=== PATIENT | female | born 1960 | race American Indian/Alaskan Native ===

== ENCOUNTER 2017-01-05 20:33 | Inpatient (IN) | payer MEDICAID ==
[2017-01-05] MEDS ORDERED: DUONEB 0.5 MG-3 MG/3 ML SOLN IH ONE ×2 (20:42→21:16)
--- NOTE | 2017-01-05 20:46 | Emergency Department Report ---
Chief Complaint: Dyspnea/Respdistress Stated Complaint: ASTHMA Time Seen by Provider: 01/05/17 20:42 - HPI History of Present Illness: PT states she is visiting from out of town. pt states she did not bring her nebulizer with her. pt states her inhalers are not working. pt wheezing and has hx of copd and asthma - ROS Review of Systems: + sob + wheezing - Exam Vital Signs: Vital Signs 01/05/17 20:39 Temperature 98.6 F Pulse Rate 120 H Respiratory 26 H Rate Blood Pressure 140/88 O2 Sat by Pulse 92 Oximetry MSE screening note: Focused history and physical exam performed. Due to findings the following was ordered: xr, labs, neb ED Disposition for MSE Condition: Stable
[2017-01-05] MEDS: DUONEB 0.5 MG-3 MG/3 ML SOLN IH ONE ×2 (20:53→21:21)
[2017-01-05 22:15] LABS: Alanine Aminotransferase 15 units/L (7-56); Albumin 3.5 g/dL (3.9-5); Albumin/Globulin Ratio 0.9 %; Alkaline Phosphatase 153 units/L (35-129); Anion Gap 18 mmol/L; BUN/Creatinine Ratio 8.57; Bilirubin,Total < 0.2 mg/dL (0.1-1.2); Blood Urea Nitrogen 6 mg/dL (7-17); Calcium 8.6 mg/dL (8.4-10.2); Carbon Dioxide 28 mmol/L (22-30); Chloride 101.6 mmol/L (98-107); Glucose 113 mg/dL (65-100); Potassium 4.1 mmol/L (3.6-5.0); Sodium 143 mmol/L (137-145); Total Protein 7.6 g/dL (6.3-8.2)
[2017-01-06] MEDS ORDERED: DUONEB 0.5 MG-3 MG/3 ML SOLN IH ONE (01:45)
[2017-01-06] MEDS ORDERED: NACL 0.9% 1000 ML 1,000 ML IV ONE (08:23)
[2017-01-06] MEDS ORDERED: DECADRON IV ONE (08:23)
--- NOTE | 2017-01-06 08:25 | Emergency Department Report ---
ED Shortness of Breath HPI - General Chief Complaint: Dyspnea/Respdistress Stated Complaint: ASTHMA Time Seen by Provider: 01/05/17 20:42 Source: patient Mode of arrival: Ambulatory Limitations: No Limitations - History of Present Illness MD Complaint: shortness of breath, cough - Related Data Home Medications Medication Instructions Recorded Confirmed Last Taken ALBUTEROL NEB's [Proventil 0.083% 90 mcg IH QID 01/06/17 01/06/17 Unknown NEBS] Fluticasone/Salmeterol [Advair 1 puff IH BID 01/06/17 01/06/17 Unknown Diskus 250-50 mcg] Gabapentin [Neurontin] 400 mg PO QID 01/06/17 01/06/17 Unknown Memantine HCl 5 mg PO DAILY 01/06/17 01/06/17 Unknown Montelukast [Singulair] 10 mg PO QHS 01/06/17 01/06/17 Unknown Olanzapine [OLANZapine] 5 mg PO QHS 01/06/17 01/06/17 Unknown Omeprazole 40 mg PO DAILY 01/06/17 01/06/17 Unknown Zolpidem [Ambien] 10 mg PO QHS 01/06/17 01/06/17 Unknown Allergies Allergy/AdvReac Type Severity Reaction Status Date / Time No Known Allergies Allergy Unverified 01/05/17 20:49 ED Review of Systems ROS: Stated complaint: ASTHMA Other details as noted in HPI ED Past Medical Hx - Past Medical History Hx Asthma: Yes Hx COPD: Yes Additional medical history: bi polar - Surgical History Past Surgical History?: No - Social History Smoking Status: Current Every Day Smoker Substance Use Type: None - Medications Home Medications: Home Medications Medication Instructions Recorded Confirmed Last Taken Type ALBUTEROL NEB's [Proventil 0.083% 90 mcg IH QID 01/06/17 01/06/17 Unknown History NEBS] Fluticasone/Salmeterol [Advair 1 puff IH BID 01/06/17 01/06/17 Unknown History Diskus 250-50 mcg] Gabapentin [Neurontin] 400 mg PO QID 01/06/17 01/06/17 Unknown History Memantine HCl 5 mg PO DAILY 01/06/17 01/06/17 Unknown History Montelukast [Singulair] 10 mg PO QHS 01/06/17 01/06/17 Unknown History Olanzapine [OLANZapine] 5 mg PO QHS 01/06/17 01/06/17 Unknown History Omeprazole 40 mg PO DAILY 01/06/17 01/06/17 Unknown History Zolpidem [Ambien] 10 mg PO QHS 01/06/17 01/06/17 Unknown History ED Physical Exam - General Limitations: No Limitations ED Course Vital Signs 01/05/17 01/05/17 01/05/17 20:39 21:20 21:30 Temperature 98.6 F Pulse Rate 120 H Pulse Rate [ 110 H 105 H Anterior Bilateral Throughout] Respiratory 26 H Rate Respiratory 24 20 Rate [Anterior Bilateral Throughout] Blood Pressure 140/88 Blood Pressure [Left] O2 Sat by Pulse 92 Oximetry 01/06/17 01/06/17 01/06/17 01:55 02:05 04:25 Temperature 98.2 F Pulse Rate 95 H Pulse Rate [ 87 91 H Anterior Bilateral Throughout] Respiratory 20 Rate Respiratory 18 20 Rate [Anterior Bilateral Throughout] Blood Pressure 148/94 Blood Pressure [Left] O2 Sat by Pulse 94 Oximetry 01/06/17 01/06/17 01/06/17 08:51 09:04 09:19 Temperature Pulse Rate 95 H Pulse Rate [ 100 H 101 H Anterior Bilateral Throughout] Respiratory 32 H Rate Respiratory 22 20 Rate [Anterior Bilateral Throughout] Blood Pressure Blood Pressure 182/111 [Left] O2 Sat by Pulse 95 Oximetry 01/06/17 10:43 Temperature 98.2 F Pulse Rate 105 H Pulse Rate [ Anterior Bilateral Throughout] Respiratory 28 H Rate Respiratory Rate [Anterior Bilateral Throughout] Blood Pressure Blood Pressure 126/68 [Left] O2 Sat by Pulse 92 Oximetry - Reevaluation(s) Reevaluation #1: 01/06/17 09:27 Patient resting comfortably receiving another breathing treatment. Patient still has diffuse bilateral wheezing and rhonchi since in no distress. Reevaluation #2: 01/06/17 09:44 Patient has now had several breathing treatments and IV steroids and states she still feels short of breath and feels she needs to be admitted to the hospital. - Consultations Consultation #1: 01/06/17 09:27 Admitted to ED Medical Decision Making - Lab Data Result diagrams: 01/06/17 08:48 01/05/17 21:37 - EKG Data Rate: tachycardia - Radiology Data Radiology results: report reviewed Chest x-ray shows no acute findings - Medical Decision Making Relates a long history of recurrent episodes of asthma exacerbation and states she has had to be admitted multiple times for respiratory distress. Critical care attestation.: If time is entered above; I have spent that time in minutes in the direct care of this critically ill patient, excluding procedure time. ED Disposition Clinical Impression: Asthma exacerbation Disposition: OP ADMITTED IP TO THIS HOSP Is pt being admited?: Yes Condition: Stable Referrals: PRIMARY CARE, [Primary Care Provider] - 3-5 Days
--- NOTE | 2017-01-06 08:33 | XRay Report ---
CHEST 2 VIEWS INDICATION: Wheezing, asthma attack. COMPARISON: None similar at this institution. FINDINGS: Frontal and lateral chest radiographs demonstrate normal cardiomediastinal silhouette. Slightly prominent lung markings centrally and peribronchial thickening may be correlated for hyperactive airway disease in an appropriate setting. No focal consolidation, pleural effusions or CHF. Mild thoracic spine degenerative spurring. Probable cholecystectomy clips. CONCLUSION: Slight peribronchial thickening without evidence of pneumonia, as described. Please correlate. Thank you for the opportunity to participate in this patient's care.
[2017-01-06] MEDS ORDERED: PROVENTIL IH ONE (08:44)
[2017-01-06 09:21] LABS: Basophils % (Auto) 1.1 % (0.0-1.8); Eosinophils % (Auto) 3.2 % (0.0-4.3); Hematocrit 42.9 % (30.3-42.9); Hemoglobin 13.6 gm/dl (10.1-14.3); Mean Corpuscular HGB Conc 32 % (30-34); Mean Corpuscular Hemoglobin 27 pg (28-32); Mean Corpuscular Volume 85 fl (79-97); Platelet Count 325 K/mm3 (140-440); Red Blood Count 5.02 M/mm3 (3.65-5.03); Red Cell Distribution Width 14.5 % (13.2-15.2); White Blood Count 7.8 K/mm3 (4.5-11.0)
[2017-01-06 09:25] LABS: Bilirubin,Urine NEG (Negative); Blood,Urine NEG (Negative); Ketones,Urine NEG (Negative); Leukocyte Esterase,Urine NEG (Negative); Mucus,Urine FEW /HPF; Nitrite,Urine NEG (Negative); Protein,Urine <15 mg/dL mg/dL (Negative); Urobilinogen,Urine < 2.0 mg/dL (<2.0)
--- NOTE | 2017-01-06 09:25 | Admit Criteria Form ---
Admission Criteria Documentation: ASTHMA Clinical Indications for Admission to Inpatient Care (Place 'X' for any and all applicable criteria): Admission is indicated for ANY ONE of the following (1)(2)(3)(4)(5): [ ]I. Absent or markedly diminished breath sounds (silent chest) [ ]II. Oxygen saturation < 92% [ ]III. PaCO2 = / > 42 mm Hg (5.6 kPa) [ ]IV. Peak expiratory flow rate < 40% of predicted or personal best after treatment. [ ]V. Peak expiratory flow rate < 33% of predicted or personal before after treatment [ ]. Change in mental status [ ]VII. Ventilatory support required [ ]VIII. PaO2 < 60 mm Hg (8.0 kPa) [ ]IX. Cyanosis [ ]X. Cardiac dysrhythmia (e.g., bradycardia) [ ]XI. Hemodynamic instability [ ]XII. Radiographic evidence of complication requiring inpatient treatment (e.g., pneumonia, pneumothorax) [X ]XIII. Inpatient admission required rather than observation care (also use Asthma: Observation Care guideline as appropriate) because of ANY ONE of the following: [X ]a) Respiratory finding that is severe or persistent (eg, dyspnea, tachypnea, accessory muscle use) [ ]b) Airflow measurements less than 60% of predicted or personal best that persist (e.g., over 24 hours) or worsen despite treatments [ ]c) Supplemental oxygen or respiratory treatments for over 24 hours that are performable only in acute inpatient setting [ ]d) Other condition, treatment or monitoring requiring inpatient admission. Extended stay beyond goal length of stay may be needed for (26)(27)(28): [ ]a) Severe respiratory failure (23) (29) (30) [ ]b) Secondary causes and complications (25) [ ]c) Status asthmaticus [ ]d) Chronic obstructive asthma [ ]e) Older patients (29) [ ]f) Slow resolution [ ]g) Clinically significant exacerbation of comorbidities (eg, [place]. heart failure, atrial fibrillation) The original [employer] content created by [employer] has been revised. The portions of the content which have been revised are identified through the use of italic text or in bold, and [employer] has neither reviewed nor approved the modified material. All other unmodified content is copyright [employer] Please see references footnoted in the original [facility] edition 2016 Admission Criteria Met: Yes
[2017-01-06] MEDS ORDERED: ZOFRAN IV PRN (10:38)
[2017-01-06] MEDS ORDERED: DULCOLAX PR PRN (10:38)
[2017-01-06] MEDS ORDERED: MILK OF MAGNESIA PO PRN (10:38)
[2017-01-06] MEDS ORDERED: TYLENOL PO PRN (10:38)
[2017-01-06 12:27] LABS: ISTAT Base Excess 5; ISTAT DEVICE 0; ISTAT HCO3 29.7; ISTAT PCO2 47.1 (35-45); ISTAT PH 7.407 (7.35-7.45); ISTAT PO2 56 (80-105); ISTAT SO2 89; ISTAT TCO2 31
--- NOTE | 2017-01-06 12:45 | History and Physical Report ---
History of Present Illness Date of examination: 01/06/17 Date of admission: 01/06/17 09:29 Chief complaint: Shortness of breath History of present illness: Patient is a pleasant 56-year-old female with history of COPD, asthma, bipolar disorder, who is visiting from [facility] reports that she unfortunately forgot her nebulizer. She's been here for about 2 days and began having increased shortness of breath or wheezing. She denies any environmental allergies. She denies a prior history of surgery. She denies any prior intubation due to pulmonary condition. She denies any fever, nausea, vomiting, diarrhea. She denies any chest pain. She does note some cough but nonproductive. ROS Constitutional: No fever, fatigue or weight loss. Skin: No rash. Eyes: No recent vision problems or eye pain. ENT: No congestion, ear pain, or sore throat. Endocrine: No thyroid problems. Cardiovascular: No chest pain. Respiratory: Reports cough, shortness of breath, wheezing but no congestion Gastrointestinal: No abdominal pain, nausea, vomiting, or diarrhea. Genitourinary: No dysuria. Musculoskeletal: No joint swelling. Neurologic: No seizures. Hematologic: No unusual bruising or bleeding. Psychiatric: No psychiatric problems, hallucinations or depression. All other systems reviewed and otherwise negative. Past History Past Medical History: other (bipolar, asthma) Past Surgical History: No surgical history Social history: no significant social history Family history: no significant family history Medications and Allergies Allergies Allergy/AdvReac Type Severity Reaction Status Date / Time No Known Allergies Allergy Unverified 01/05/17 20:49 Home Medications Medication Instructions Recorded Confirmed Last Taken Type ALBUTEROL NEB's [Proventil 0.083% 90 mcg IH QID 01/06/17 01/06/17 Unknown History NEBS] Fluticasone/Salmeterol [Advair 1 puff IH BID 01/06/17 01/06/17 Unknown History Diskus 250-50 mcg] Gabapentin [Neurontin] 400 mg PO QID 01/06/17 01/06/17 Unknown History Memantine HCl 5 mg PO DAILY 01/06/17 01/06/17 Unknown History Montelukast [Singulair] 10 mg PO QHS 01/06/17 01/06/17 Unknown History Olanzapine [OLANZapine] 5 mg PO QHS 01/06/17 01/06/17 Unknown History Omeprazole 40 mg PO DAILY 01/06/17 01/06/17 Unknown History Zolpidem [Ambien] 10 mg PO QHS 01/06/17 01/06/17 Unknown History Active Meds: Active Medications Acetaminophen (Tylenol) 650 mg PO Q4H PRN PRN Reason: Pain MILD(1-3)/Fever >100.5/HIGH Albuterol/Ipratropium (Duoneb 0.5 Mg-3 Mg/3 Ml Soln) 1 ampul IH Q6HRT [facility] Arformoterol Tartrate (Brovana Nebu) 15 mcg IH Q12HRT [facility] Bisacodyl (Dulcolax) 10 mg [place] QDAY PRN PRN Reason: Constipation unrelieved by MOM Budesonide (Pulmicort) 0.5 mg IH Q12HRT [facility] Gabapentin (Neurontin) 400 mg PO QID [facility] Sodium Chloride (Nacl 0.9% 1000 Ml) 1,000 mls @ 125 mls/hr IV ONCE ONE Stop: 01/06/17 16:22 Last Admin: 01/06/17 08:33 Dose: 125 mls/hr Magnesium Hydroxide (Milk Of Magnesia) 30 ml PO Q4H PRN PRN Reason: Constipation Memantine (Namenda Xr) 7 mg PO QDAY [facility] Methylprednisolone Sodium Succinate (Solu-Medrol) 40 mg IV Q8HR [facility] Montelukast Sodium (Singulair) 10 mg PO QHS [facility] Olanzapine (Zyprexa) 5 mg PO QHS [facility] Ondansetron HCl (Zofran) 4 mg IV Q8H PRN PRN Reason: N/V unrelieved by Reglan Zolpidem Tartrate (Ambien) 10 mg PO QHS [facility] Exam - Physical Exam Narrative exam: VITAL SIGNS: Reviewed. GENERAL: The patient appeared well nourished and normally developed, obese. Vital signs as documented. HEAD: No signs of head trauma. EYES: Pupils are equal. Extraocular motions intact. EARS: Hearing grossly intact. MOUTH: Oropharynx is normal. NECK: No adenopathy, no JVD. CHEST: Chest with bilateral expiratory wheezing. No accessory muscle use. CARDIAC: Regular rate and rhythm. S1 and S2, without murmurs, gallops, or rubs. VASCULAR: No Edema. Peripheral pulses normal and equal in all extremities. ABDOMEN: Soft, without detectable tenderness. No sign of distention. No rebound or guarding, and no masses palpated. Bowel Sounds normal. MUSCULOSKELETAL: Good range of motion of all major joints. Extremities without clubbing, cyanosis or edema. NEUROLOGIC EXAM: Alert and oriented x 3. No focal sensory or strength deficits. Speech normal. Follows commands. PSYCHIATRIC: Mood normal. SKIN: No rash or lesions. - Constitutional Vitals: Temp Pulse Resp BP Pulse Ox 98.2 F 105 H 28 H 126/68 92 01/06/17 10:43 01/06/17 10:43 01/06/17 10:43 01/06/17 10:43 01/06/17 10:43 Results - Labs CBC & Chem 7: 01/06/17 08:48 01/05/17 21:37 Labs: Laboratory Last Values WBC 7.8 K/mm3 (4.5-11.0) 01/06/17 08:48 RBC 5.02 M/mm3 (3.65-5.03) 01/06/17 08:48 Hgb 13.6 gm/dl (10.1-14.3) 01/06/17 08:48 Hct 42.9 % (30.3-42.9) 01/06/17 08:48 MCV 85 fl (79-97) 01/06/17 08:48 MCH 27 pg (28-32) L 01/06/17 08:48 MCHC 32 % (30-34) 01/06/17 08:48 RDW 14.5 % (13.2-15.2) 01/06/17 08:48 Plt Count 325 K/mm3 (140-440) 01/06/17 08:48 Lymph % (Auto) 22.2 % (13.4-35.0) 01/06/17 08:48 [place] % (Auto) 12.9 % (0.0-7.3) H 01/06/17 08:48 Eos % (Auto) 3.2 % (0.0-4.3) 01/06/17 08:48 Baso % (Auto) 1.1 % (0.0-1.8) 01/06/17 08:48 Lymph # 1.7 K/mm3 (1.2-5.4) 01/06/17 08:48 [place] # 1.0 K/mm3 (0.0-0.8) H 01/06/17 08:48 Eos # 0.3 K/mm3 (0.0-0.4) 01/06/17 08:48 Baso # 0.1 K/mm3 (0.0-0.1) 01/06/17 08:48 Seg Neutrophils % 60.6 % (40.0-70.0) 01/06/17 08:48 Seg Neutrophils # 4.7 K/mm3 (1.8-7.7) 01/06/17 08:48 POC ABG pH 7.407 (7.35-7.45) 01/06/17 12:04 POC ABG pCO2 47.1 (35-45) H 01/06/17 12:04 POC ABG pO2 56 (80-105) L 01/06/17 12:04 POC ABG HCO3 29.7 01/06/17 12:04 POC ABG Total CO2 31 01/06/17 12:04 POC ABG O2 Sat 89 01/06/17 12:04 POC ABG Base Excess 5 01/06/17 12:04 FiO2 21 % 01/06/17 12:04 Sodium 143 mmol/L (137-145) 01/05/17 21:37 Potassium 4.1 mmol/L (3.6-5.0) 01/05/17 21:37 Chloride 101.6 mmol/L (98-107) 01/05/17 21:37 Carbon Dioxide 28 mmol/L (22-30) 01/05/17 21:37 Anion Gap 18 mmol/L 01/05/17 21:37 BUN 6 mg/dL (7-17) L 01/05/17 21:37 Creatinine 0.7 mg/dL (0.7-1.2) 01/05/17 21:37 Estimated GFR > 60 ml/min 01/05/17 21:37 BUN/Creatinine Ratio 8.57 % 01/05/17 21:37 Glucose 113 mg/dL (65-100) H 01/05/17 21:37 Calcium 8.6 mg/dL (8.4-10.2) 01/05/17 21:37 Total Bilirubin < 0.2 mg/dL (0.1-1.2) 01/05/17 21:37 AST 14 units/L (5-40) 01/05/17 21:37 ALT 15 units/L (7-56) 01/05/17 21:37 Alkaline Phosphatase 153 units/L (35-129) H 01/05/17 21:37 Total Protein 7.6 g/dL (6.3-8.2) 01/05/17 21:37 Albumin 3.5 g/dL (3.9-5) L 01/05/17 21:37 Albumin/Globulin Ratio 0.9 % 01/05/17 21:37 Urine Color Yellow (Yellow) 01/06/17 08:45 Urine Turbidity Clear (Clear) 01/06/17 08:45 Urine pH 6.0 (5.0-7.0) 01/06/17 08:45 Ur Specific Rogers 1.015 (1.003-1.030) 01/06/17 08:45 Urine Protein <15 mg/dl mg/dL (Negative) 01/06/17 08:45 Urine Glucose (UA) Neg mg/dL (Negative) 01/06/17 08:45 Urine Ketones Neg mg/dL (Negative) 01/06/17 08:45 Urine Blood Neg (Negative) 01/06/17 08:45 Urine Nitrite Neg (Negative) 01/06/17 08:45 Urine Bilirubin Neg (Negative) 01/06/17 08:45 Urine Urobilinogen < 2.0 mg/dL (<2.0) 01/06/17 08:45 Ur Leukocyte Esterase Neg (Negative) 01/06/17 08:45 Urine WBC (Auto) 1.0 /HPF (0.0-6.0) 01/06/17 08:45 Urine RBC (Auto) 2.0 /HPF (0.0-6.0) 01/06/17 08:45 U Epithel Cells (Auto) 1.0 /HPF (0-13.0) 01/06/17 08:45 Urine Mucus Few /HPF 01/06/17 08:45 - Imaging and Cardiology Chest x-ray: image reviewed (unremarkable per My review) Assessment and Plan Assessment and plan: Patient is a pleasant 56-year-old female with history of COPD, asthma, bipolar disorder, who is visiting from [facility] reports that she unfortunately forgot her nebulizer. She's been here for about 2 days and began having increased shortness of breath or wheezing. She denies any environmental allergies. She denies a prior history of surgery. She denies any prior intubation due to pulmonary condition. She denies any fever, nausea, vomiting, diarrhea. She denies any chest pain. She does note some cough but nonproductive. * Asthma exacerbation * Bipolar disorder * Morbid obesity * Acute on chronic respiratory failure Plan * Start patient on IV Solu-Medrol every 8 hours * Start patient on nebulizer treatment, * Resume home medications * Peak flow meter and instructed on how to use * DVT and GI prophylaxis * Weight loss counseling provided to the patient due to patient verbalized understanding Advance Directives: Yes Plan of care discussed with patient/family: Yes
[2017-01-06] MEDS: NAMENDA XR PO SCH (13:35)
[2017-01-06] MEDS: NEURONTIN PO SCH ×3 (14:52→21:34)
[2017-01-06] MEDS: DUONEB 0.5 MG-3 MG/3 ML SOLN IH SCH ×2 (15:18→19:57)
[2017-01-06] MEDS: BROVANA NEBU IH SCH ×2 (15:22→19:57)
[2017-01-06] MEDS: PULMICORT IH SCH ×2 (15:22→19:57)
[2017-01-06] MEDS: AMBIEN PO SCH (21:33)
[2017-01-06] MEDS: SINGULAIR PO SCH (21:34)
[2017-01-07] MEDS: DUONEB 0.5 MG-3 MG/3 ML SOLN IH SCH ×4 (01:49→21:20)
[2017-01-07] MEDS: PULMICORT IH SCH ×2 (07:34→21:20)
[2017-01-07] MEDS: BROVANA NEBU IH SCH ×2 (07:34→21:20)
[2017-01-07] MEDS: NAMENDA XR PO SCH (09:38)
[2017-01-07] MEDS: NEURONTIN PO SCH ×4 (09:38→22:23)
[2017-01-07] MEDS ORDERED: MEMANTINE HCL 5 MG PO SCH (10:00)
[2017-01-07] MEDS: XANAX PO PRN ×2 (12:41→22:30)
[2017-01-07] MEDS: PERCOCET 5/325 PO PRN ×2 (12:41→22:26)
[2017-01-07] MEDS ORDERED: PNEUMOVAX 23 IM ONE (12:56)
--- NOTE | 2017-01-07 15:25 | Progress Note ---
Assessment and Plan Assessment and plan: Patient is a pleasant 56-year-old female with history of COPD, asthma, bipolar disorder, who is visiting from [facility] reports that she unfortunately forgot her nebulizer. She's been here for about 2 days and began having increased shortness of breath or wheezing. She denies any environmental allergies. She denies a prior history of surgery. She denies any prior intubation due to pulmonary condition. She denies any fever, nausea, vomiting, diarrhea. She denies any chest pain. She does note some cough but nonproductive. * Asthma exacerbation * Bipolar disorder * Morbid obesity * Chronic pain and anxiety syndrome * Tobacco abuse * Acute on chronic respiratory failure with hypoxia Plan * continue IV Solu-Medrol every 8 hours * continue on nebulizer treatment, * Resume home medications * Nicotine patch * Resume opioids and benzo as taken at home. * Extensive conversation and counseling on tobacco cessation patient verbalized understanding * Peak flow meter and instructed on how to use * DVT and GI prophylaxis * Weight loss counseling provided to the patient due to patient verbalized understanding * 1 discussed with the patient will continue inpatient care from [facility]. History Interval history: Patient seen and examined this morning in mild respiratory distress, but still with some wheezing. Still with cough. Productive. Denies any chest pain, nausea, vomiting, diarrhea No fever noted blood pressure controlled No adverse events reported to me by nursing staff Hospitalist Physical - Physical exam Narrative exam: VITAL SIGNS: Reviewed. GENERAL: The patient appeared well nourished and normally developed, obese. Vital signs as documented. HEAD: No signs of head trauma. EYES: Pupils are equal. Extraocular motions intact. EARS: Hearing grossly intact. MOUTH: Oropharynx is normal. NECK: No adenopathy, no JVD. CHEST: Chest with bilateral expiratory wheezing. No accessory muscle use. CARDIAC: Regular rate and rhythm. S1 and S2, without murmurs, gallops, or rubs. VASCULAR: No Edema. Peripheral pulses normal and equal in all extremities. ABDOMEN: Soft, without detectable tenderness. No sign of distention. No rebound or guarding, and no masses palpated. Bowel Sounds normal. MUSCULOSKELETAL: Good range of motion of all major joints. Extremities without clubbing, cyanosis or edema. NEUROLOGIC EXAM: Alert and oriented x 3. No focal sensory or strength deficits. Speech normal. Follows commands. PSYCHIATRIC: Mood normal. SKIN: No rash or lesions. - Constitutional Vitals: Temp Pulse Resp BP Pulse Ox 97.5 F L 115 H 18 92/68 96 01/07/17 15:03 01/07/17 15:03 01/07/17 15:03 01/07/17 15:03 01/07/17 15:03 Results - Labs CBC & Chem 7: 01/06/17 08:48 01/05/17 21:37 Labs: Laboratory Last Values WBC 7.8 K/mm3 (4.5-11.0) 01/06/17 08:48 RBC 5.02 M/mm3 (3.65-5.03) 01/06/17 08:48 Hgb 13.6 gm/dl (10.1-14.3) 01/06/17 08:48 Hct 42.9 % (30.3-42.9) 01/06/17 08:48 MCV 85 fl (79-97) 01/06/17 08:48 MCH 27 pg (28-32) L 01/06/17 08:48 MCHC 32 % (30-34) 01/06/17 08:48 RDW 14.5 % (13.2-15.2) 01/06/17 08:48 Plt Count 325 K/mm3 (140-440) 01/06/17 08:48 Lymph % (Auto) 22.2 % (13.4-35.0) 01/06/17 08:48 Terry % (Auto) 12.9 % (0.0-7.3) H 01/06/17 08:48 Eos % (Auto) 3.2 % (0.0-4.3) 01/06/17 08:48 Baso % (Auto) 1.1 % (0.0-1.8) 01/06/17 08:48 Lymph # 1.7 K/mm3 (1.2-5.4) 01/06/17 08:48 Terry # 1.0 K/mm3 (0.0-0.8) H 01/06/17 08:48 Eos # 0.3 K/mm3 (0.0-0.4) 01/06/17 08:48 Baso # 0.1 K/mm3 (0.0-0.1) 01/06/17 08:48 Seg Neutrophils % 60.6 % (40.0-70.0) 01/06/17 08:48 Seg Neutrophils # 4.7 K/mm3 (1.8-7.7) 01/06/17 08:48 POC ABG pH 7.407 (7.35-7.45) 01/06/17 12:04 POC ABG pCO2 47.1 (35-45) H 01/06/17 12:04 POC ABG pO2 56 (80-105) L 01/06/17 12:04 POC ABG HCO3 29.7 01/06/17 12:04 POC ABG Total CO2 31 01/06/17 12:04 POC ABG O2 Sat 89 01/06/17 12:04 POC ABG Base Excess 5 01/06/17 12:04 FiO2 21 % 01/06/17 12:04 Sodium 143 mmol/L (137-145) 01/05/17 21:37 Potassium 4.1 mmol/L (3.6-5.0) 01/05/17 21:37 Chloride 101.6 mmol/L (98-107) 01/05/17 21:37 Carbon Dioxide 28 mmol/L (22-30) 01/05/17 21:37 Anion Gap 18 mmol/L 01/05/17 21:37 BUN 6 mg/dL (7-17) L 01/05/17 21:37 Creatinine 0.7 mg/dL (0.7-1.2) 01/05/17 21:37 Estimated GFR > 60 ml/min 01/05/17 21:37 BUN/Creatinine Ratio 8.57 % 01/05/17 21:37 Glucose 113 mg/dL (65-100) H 01/05/17 21:37 Calcium 8.6 mg/dL (8.4-10.2) 01/05/17 21:37 Total Bilirubin < 0.2 mg/dL (0.1-1.2) 01/05/17 21:37 AST 14 units/L (5-40) 01/05/17 21:37 ALT 15 units/L (7-56) 01/05/17 21:37 Alkaline Phosphatase 153 units/L (35-129) H 01/05/17 21:37 Total Protein 7.6 g/dL (6.3-8.2) 01/05/17 21:37 Albumin 3.5 g/dL (3.9-5) L 01/05/17 21:37 Albumin/Globulin Ratio 0.9 % 01/05/17 21:37 Urine Color Yellow (Yellow) 01/06/17 08:45 Urine Turbidity Clear (Clear) 01/06/17 08:45 Urine pH 6.0 (5.0-7.0) 01/06/17 08:45 Ur Specific Nixon 1.015 (1.003-1.030) 01/06/17 08:45 Urine Protein <15 mg/dl mg/dL (Negative) 01/06/17 08:45 Urine Glucose (UA) Neg mg/dL (Negative) 01/06/17 08:45 Urine Ketones Neg mg/dL (Negative) 01/06/17 08:45 Urine Blood Neg (Negative) 01/06/17 08:45 Urine Nitrite Neg (Negative) 01/06/17 08:45 Urine Bilirubin Neg (Negative) 01/06/17 08:45 Urine Urobilinogen < 2.0 mg/dL (<2.0) 01/06/17 08:45 Ur Leukocyte Esterase Neg (Negative) 01/06/17 08:45 Urine WBC (Auto) 1.0 /HPF (0.0-6.0) 01/06/17 08:45 Urine RBC (Auto) 2.0 /HPF (0.0-6.0) 01/06/17 08:45 U Epithel Cells (Auto) 1.0 /HPF (0-13.0) 01/06/17 08:45 Urine Mucus Few /HPF 01/06/17 08:45
[2017-01-07] MEDS: SINGULAIR PO SCH (22:23)
[2017-01-07] MEDS: AMBIEN PO SCH (22:24)
[2017-01-08] MEDS: DUONEB 0.5 MG-3 MG/3 ML SOLN IH SCH ×4 (02:00→19:56)
[2017-01-08] MEDS: PULMICORT IH SCH ×2 (08:39→19:56)
[2017-01-08] MEDS: BROVANA NEBU IH SCH ×2 (08:39→19:56)
[2017-01-08] MEDS: NEURONTIN PO SCH ×4 (09:44→23:19)
[2017-01-08] MEDS: NAMENDA XR PO SCH (09:44)
[2017-01-08] MEDS: HABITROL TD SCH (09:45)
[2017-01-08] MEDS: PERCOCET 5/325 PO PRN ×2 (10:45→23:27)
--- NOTE | 2017-01-08 15:34 | Progress Note ---
Assessment and Plan Assessment and plan: Patient is a pleasant 56-year-old female with history of COPD, asthma, bipolar disorder, who is visiting from [facility] reports that she unfortunately forgot her nebulizer. She's been here for about 2 days and began having increased shortness of breath or wheezing. She denies any environmental allergies. She denies a prior history of surgery. She denies any prior intubation due to pulmonary condition. She denies any fever, nausea, vomiting, diarrhea. She denies any chest pain. She does note some cough but nonproductive. * Asthma exacerbation * Bipolar disorder * Morbid obesity * Chronic pain and anxiety syndrome * Tobacco abuse * Acute on chronic respiratory failure with hypoxia Plan * continue IV Solu-Medrol will change to every 12 hours * Recommended warm humidification at home. * continue on nebulizer treatment, * Resume home medications * Nicotine patch * Resume opioids and benzo as taken at home. * Extensive conversation and counseling on tobacco cessation patient verbalized understanding * Peak flow meter and instructed on how to use * DVT and GI prophylaxis * Weight loss counseling provided to the patient due to patient verbalized understanding * 1 discussed with the patient will continue inpatient care from [facility]. History Interval history: Patient seen and examined this morning and not in acute respiratory distress. Wheezing has improved greatly. She still has the cough and is unable to cough it up. We'll watch her one more day to ensure good control. Denies any chest pain, nausea, vomiting, diarrhea No fever noted blood pressure controlled No adverse events reported to me by nursing staff Hospitalist Physical - Physical exam Narrative exam: VITAL SIGNS: Reviewed. GENERAL: The patient appeared well nourished and normally developed, obese. Vital signs as documented. HEAD: No signs of head trauma. EYES: Pupils are equal. Extraocular motions intact. EARS: Hearing grossly intact. MOUTH: Oropharynx is normal. NECK: No adenopathy, no JVD. CHEST: Chest with bilateral expiratory wheezing much improved compared to the day before. No accessory muscle use. CARDIAC: Regular rate and rhythm. S1 and S2, without murmurs, gallops, or rubs. VASCULAR: No Edema. Peripheral pulses normal and equal in all extremities. ABDOMEN: Soft, without detectable tenderness. No sign of distention. No rebound or guarding, and no masses palpated. Bowel Sounds normal. MUSCULOSKELETAL: Good range of motion of all major joints. Extremities without clubbing, cyanosis or edema. NEUROLOGIC EXAM: Alert and oriented x 3. No focal sensory or strength deficits. Speech normal. Follows commands. PSYCHIATRIC: Mood normal. SKIN: No rash or lesions. - Constitutional Vitals: Temp Pulse Resp BP Pulse Ox 98.0 F 119 H 18 115/59 93 01/08/17 08:35 01/08/17 14:13 01/08/17 14:13 01/08/17 08:35 01/08/17 14:06 Results - Labs CBC & Chem 7: 01/06/17 08:48 01/05/17 21:37 Labs: Laboratory Last Values WBC 7.8 K/mm3 (4.5-11.0) 01/06/17 08:48 RBC 5.02 M/mm3 (3.65-5.03) 01/06/17 08:48 Hgb 13.6 gm/dl (10.1-14.3) 01/06/17 08:48 Hct 42.9 % (30.3-42.9) 01/06/17 08:48 MCV 85 fl (79-97) 01/06/17 08:48 MCH 27 pg (28-32) L 01/06/17 08:48 MCHC 32 % (30-34) 01/06/17 08:48 RDW 14.5 % (13.2-15.2) 01/06/17 08:48 Plt Count 325 K/mm3 (140-440) 01/06/17 08:48 Lymph % (Auto) 22.2 % (13.4-35.0) 01/06/17 08:48 [place] % (Auto) 12.9 % (0.0-7.3) H 01/06/17 08:48 Eos % (Auto) 3.2 % (0.0-4.3) 01/06/17 08:48 Baso % (Auto) 1.1 % (0.0-1.8) 01/06/17 08:48 Lymph # 1.7 K/mm3 (1.2-5.4) 01/06/17 08:48 [place] # 1.0 K/mm3 (0.0-0.8) H 01/06/17 08:48 Eos # 0.3 K/mm3 (0.0-0.4) 01/06/17 08:48 Baso # 0.1 K/mm3 (0.0-0.1) 01/06/17 08:48 Seg Neutrophils % 60.6 % (40.0-70.0) 01/06/17 08:48 Seg Neutrophils # 4.7 K/mm3 (1.8-7.7) 01/06/17 08:48 POC ABG pH 7.407 (7.35-7.45) 01/06/17 12:04 POC ABG pCO2 47.1 (35-45) H 01/06/17 12:04 POC ABG pO2 56 (80-105) L 01/06/17 12:04 POC ABG HCO3 29.7 01/06/17 12:04 POC ABG Total CO2 31 01/06/17 12:04 POC ABG O2 Sat 89 01/06/17 12:04 POC ABG Base Excess 5 01/06/17 12:04 FiO2 21 % 01/06/17 12:04 Sodium 143 mmol/L (137-145) 01/05/17 21:37 Potassium 4.1 mmol/L (3.6-5.0) 01/05/17 21:37 Chloride 101.6 mmol/L (98-107) 01/05/17 21:37 Carbon Dioxide 28 mmol/L (22-30) 01/05/17 21:37 Anion Gap 18 mmol/L 01/05/17 21:37 BUN 6 mg/dL (7-17) L 01/05/17 21:37 Creatinine 0.7 mg/dL (0.7-1.2) 01/05/17 21:37 Estimated GFR > 60 ml/min 01/05/17 21:37 BUN/Creatinine Ratio 8.57 % 01/05/17 21:37 Glucose 113 mg/dL (65-100) H 01/05/17 21:37 Calcium 8.6 mg/dL (8.4-10.2) 01/05/17 21:37 Total Bilirubin < 0.2 mg/dL (0.1-1.2) 01/05/17 21:37 AST 14 units/L (5-40) 01/05/17 21:37 ALT 15 units/L (7-56) 01/05/17 21:37 Alkaline Phosphatase 153 units/L (35-129) H 01/05/17 21:37 Total Protein 7.6 g/dL (6.3-8.2) 01/05/17 21:37 Albumin 3.5 g/dL (3.9-5) L 01/05/17 21:37 Albumin/Globulin Ratio 0.9 % 01/05/17 21:37 Urine Color Yellow (Yellow) 01/06/17 08:45 Urine Turbidity Clear (Clear) 01/06/17 08:45 Urine pH 6.0 (5.0-7.0) 01/06/17 08:45 Ur Specific [place] 1.015 (1.003-1.030) 01/06/17 08:45 Urine Protein <15 mg/dl mg/dL (Negative) 01/06/17 08:45 Urine Glucose (UA) Neg mg/dL (Negative) 01/06/17 08:45 Urine Ketones Neg mg/dL (Negative) 01/06/17 08:45 Urine Blood Neg (Negative) 01/06/17 08:45 Urine Nitrite Neg (Negative) 01/06/17 08:45 Urine Bilirubin Neg (Negative) 01/06/17 08:45 Urine Urobilinogen < 2.0 mg/dL (<2.0) 01/06/17 08:45 Ur Leukocyte Esterase Neg (Negative) 01/06/17 08:45 Urine WBC (Auto) 1.0 /HPF (0.0-6.0) 01/06/17 08:45 Urine RBC (Auto) 2.0 /HPF (0.0-6.0) 01/06/17 08:45 U Epithel Cells (Auto) 1.0 /HPF (0-13.0) 01/06/17 08:45 Urine Mucus Few /HPF 01/06/17 08:45
[2017-01-08] MEDS: XANAX PO PRN (17:47)
[2017-01-08] MEDS: SINGULAIR PO SCH (23:20)
[2017-01-08] MEDS: AMBIEN PO SCH (23:26)
[2017-01-09] MEDS: DUONEB 0.5 MG-3 MG/3 ML SOLN IH SCH ×4 (01:14→19:31)
--- NOTE | 2017-01-09 07:06 | Discharge Summary ---
Providers - Providers Date of Admission: 01/06/17 09:29 Date of discharge: 01/09/17 Attending physician: BALWINDER PAULSON MD Primary care physician: TRAVELING SECRETARY Hospitalization Condition: Stable Disposition: DISCHARGED TO HOME OR SELFCARE Time spent for discharge: 35 MINS Exam - Constitutional Vitals: Temp Pulse Resp BP Pulse Ox 98.4 F 118 H 20 134/75 92 01/09/17 00:00 01/09/17 00:00 01/09/17 00:00 01/09/17 00:00 01/09/17 00:00 Plan Activity: advance as tolerated, fall precautions Diet: low fat Special Instructions: smoking cessation Follow up with: PRIMARY CARE, [Primary Care Provider] - 3-5 Days Prescriptions: ALBUTEROL NEB's [Proventil 0.083% NEBS] 90 mcg IH QID #30 nebu ALPRAZolam [Xanax TAB] 2 mg PO BID PRN #10 tablet PRN Reason: Agitation predniSONE [Deltasone] 10 mg PO .TAPER #48 tab
[2017-01-09] MEDS: PULMICORT IH SCH ×2 (08:35→19:30)
[2017-01-09] MEDS: BROVANA NEBU IH SCH ×2 (08:35→19:31)
[2017-01-09] MEDS: HABITROL TD SCH (09:11)
[2017-01-09] MEDS: NEURONTIN PO SCH ×4 (09:11→22:52)
[2017-01-09] MEDS: NAMENDA XR PO SCH (09:11)
--- NOTE | 2017-01-09 13:15 | Progress Note ---
Assessment and Plan Assessment and plan: Patient is a pleasant 56-year-old female with history of COPD, asthma, bipolar disorder, who is visiting from [facility] reports that she unfortunately forgot her nebulizer. She's been here for about 2 days and began having increased shortness of breath or wheezing. She denies any environmental allergies. She denies a prior history of surgery. She denies any prior intubation due to pulmonary condition. She denies any fever, nausea, vomiting, diarrhea. She denies any chest pain. She does note some cough but nonproductive. * Asthma exacerbation * Acute bacterial bronchitis * Non productive Cough * Bipolar disorder * Morbid obesity * Chronic pain and anxiety syndrome * Tobacco abuse * Acute on chronic respiratory failure with hypoxia Plan * continue IV Solu-Medrol, add Augmentin for possible bacterial bronchitis * Recommended warm humidification at home. * continue on nebulizer treatment, * Resume home medications * Nicotine patch * Resume opioids and benzo as taken at home. * Extensive conversation and counseling on tobacco cessation patient verbalized understanding * Peak flow meter and instructed on how to use * DVT and GI prophylaxis * Weight loss counseling provided to the patient due to patient verbalized understanding * I discussed with the patient will continue inpatient care from [facility]. History Interval history: Patient seen and examined this morning and not in acute respiratory distress. Appears worse today than yesterday with more cough still nonproductive but audible wheezing. Denies any chest pain, nausea, vomiting, diarrhea No fever noted blood pressure controlled No adverse events reported to me by nursing staff Hospitalist Physical - Physical exam Narrative exam: VITAL SIGNS: Reviewed. GENERAL: The patient appeared well nourished and normally developed, intermittent coughing spell.obese. Vital signs as documented. HEAD: No signs of head trauma. EYES: Pupils are equal. Extraocular motions intact. EARS: Hearing grossly intact. MOUTH: Oropharynx is normal. NECK: No adenopathy, no JVD. CHEST: Chest with bilateral expiratory wheezing. No accessory muscle use. CARDIAC: Regular rate and rhythm. S1 and S2, without murmurs, gallops, or rubs. VASCULAR: No Edema. Peripheral pulses normal and equal in all extremities. ABDOMEN: Soft, without detectable tenderness. No sign of distention. No rebound or guarding, and no masses palpated. Bowel Sounds normal. MUSCULOSKELETAL: Good range of motion of all major joints. Extremities without clubbing, cyanosis or edema. NEUROLOGIC EXAM: Alert and oriented x 3. No focal sensory or strength deficits. Speech normal. Follows commands. PSYCHIATRIC: Mood normal. SKIN: No rash or lesions. - Constitutional Vitals: Temp Pulse Resp BP Pulse Ox 97.8 F 92 H 20 136/90 97 01/09/17 07:59 01/09/17 07:59 01/09/17 07:59 01/09/17 07:59 01/09/17 07:59 Results - Labs CBC & Chem 7: 01/06/17 08:48 01/05/17 21:37 Labs: Laboratory Last Values WBC 7.8 K/mm3 (4.5-11.0) 01/06/17 08:48 RBC 5.02 M/mm3 (3.65-5.03) 01/06/17 08:48 Hgb 13.6 gm/dl (10.1-14.3) 01/06/17 08:48 Hct 42.9 % (30.3-42.9) 01/06/17 08:48 MCV 85 fl (79-97) 01/06/17 08:48 MCH 27 pg (28-32) L 01/06/17 08:48 MCHC 32 % (30-34) 01/06/17 08:48 RDW 14.5 % (13.2-15.2) 01/06/17 08:48 Plt Count 325 K/mm3 (140-440) 01/06/17 08:48 Lymph % (Auto) 22.2 % (13.4-35.0) 01/06/17 08:48 [place] % (Auto) 12.9 % (0.0-7.3) H 01/06/17 08:48 Eos % (Auto) 3.2 % (0.0-4.3) 01/06/17 08:48 Baso % (Auto) 1.1 % (0.0-1.8) 01/06/17 08:48 Lymph # 1.7 K/mm3 (1.2-5.4) 01/06/17 08:48 [place] # 1.0 K/mm3 (0.0-0.8) H 01/06/17 08:48 Eos # 0.3 K/mm3 (0.0-0.4) 01/06/17 08:48 Baso # 0.1 K/mm3 (0.0-0.1) 01/06/17 08:48 Seg Neutrophils % 60.6 % (40.0-70.0) 01/06/17 08:48 Seg Neutrophils # 4.7 K/mm3 (1.8-7.7) 01/06/17 08:48 POC ABG pH 7.407 (7.35-7.45) 01/06/17 12:04 POC ABG pCO2 47.1 (35-45) H 01/06/17 12:04 POC ABG pO2 56 (80-105) L 01/06/17 12:04 POC ABG HCO3 29.7 01/06/17 12:04 POC ABG Total CO2 31 01/06/17 12:04 POC ABG O2 Sat 89 01/06/17 12:04 POC ABG Base Excess 5 01/06/17 12:04 FiO2 21 % 01/06/17 12:04 Sodium 143 mmol/L (137-145) 01/05/17 21:37 Potassium 4.1 mmol/L (3.6-5.0) 01/05/17 21:37 Chloride 101.6 mmol/L (98-107) 01/05/17 21:37 Carbon Dioxide 28 mmol/L (22-30) 01/05/17 21:37 Anion Gap 18 mmol/L 01/05/17 21:37 BUN 6 mg/dL (7-17) L 01/05/17 21:37 Creatinine 0.7 mg/dL (0.7-1.2) 01/05/17 21:37 Estimated GFR > 60 ml/min 01/05/17 21:37 BUN/Creatinine Ratio 8.57 % 01/05/17 21:37 Glucose 113 mg/dL (65-100) H 01/05/17 21:37 Calcium 8.6 mg/dL (8.4-10.2) 01/05/17 21:37 Total Bilirubin < 0.2 mg/dL (0.1-1.2) 01/05/17 21:37 AST 14 units/L (5-40) 01/05/17 21:37 ALT 15 units/L (7-56) 01/05/17 21:37 Alkaline Phosphatase 153 units/L (35-129) H 01/05/17 21:37 Total Protein 7.6 g/dL (6.3-8.2) 01/05/17 21:37 Albumin 3.5 g/dL (3.9-5) L 01/05/17 21:37 Albumin/Globulin Ratio 0.9 % 01/05/17 21:37 Urine Color Yellow (Yellow) 01/06/17 08:45 Urine Turbidity Clear (Clear) 01/06/17 08:45 Urine pH 6.0 (5.0-7.0) 01/06/17 08:45 Ur Specific [place] 1.015 (1.003-1.030) 01/06/17 08:45 Urine Protein <15 mg/dl mg/dL (Negative) 01/06/17 08:45 Urine Glucose (UA) Neg mg/dL (Negative) 01/06/17 08:45 Urine Ketones Neg mg/dL (Negative) 01/06/17 08:45 Urine Blood Neg (Negative) 01/06/17 08:45 Urine Nitrite Neg (Negative) 01/06/17 08:45 Urine Bilirubin Neg (Negative) 01/06/17 08:45 Urine Urobilinogen < 2.0 mg/dL (<2.0) 01/06/17 08:45 Ur Leukocyte Esterase Neg (Negative) 01/06/17 08:45 Urine WBC (Auto) 1.0 /HPF (0.0-6.0) 01/06/17 08:45 Urine RBC (Auto) 2.0 /HPF (0.0-6.0) 01/06/17 08:45 U Epithel Cells (Auto) 1.0 /HPF (0-13.0) 01/06/17 08:45 Urine Mucus Few /HPF 01/06/17 08:45
[2017-01-09] MEDS: PERCOCET 5/325 PO PRN ×2 (13:28→23:03)
[2017-01-09] MEDS: XANAX PO PRN (13:28)
[2017-01-09] MEDS: LEVAQUIN PO SCH (15:32)
[2017-01-09] MEDS: SINGULAIR PO SCH (22:53)
[2017-01-09] MEDS: AMBIEN PO SCH (22:53)
[2017-01-10] MEDS: DUONEB 0.5 MG-3 MG/3 ML SOLN IH SCH ×4 (01:50→19:43)
[2017-01-10] MEDS: BROVANA NEBU IH SCH ×2 (07:41→19:43)
[2017-01-10] MEDS: PULMICORT IH SCH ×2 (07:41→19:43)
[2017-01-10] MEDS ORDERED: PROVENTIL IH PRN (07:54)
[2017-01-10] MEDS: HABITROL TD SCH (11:24)
[2017-01-10] MEDS: LEVAQUIN PO SCH (11:24)
[2017-01-10] MEDS: PERCOCET 5/325 PO PRN ×2 (11:52→21:45)
[2017-01-10] MEDS: NAMENDA XR PO SCH (12:18)
[2017-01-10] MEDS ORDERED: MAGNESIUM SULFATE IV ONE (12:29)
--- NOTE | 2017-01-10 12:30 | Progress Note ---
Assessment and Plan Assessment and plan: Patient is a pleasant 56-year-old female with history of COPD, asthma, bipolar disorder, who is visiting from [facility] reports that she unfortunately forgot her nebulizer. She's been here for about 2 days and began having increased shortness of breath or wheezing. She denies any environmental allergies. She denies a prior history of surgery. She denies any prior intubation due to pulmonary condition. She denies any fever, nausea, vomiting, diarrhea. She denies any chest pain. She does note some cough but nonproductive. * Asthma exacerbation * Acute bacterial bronchitis * Non productive Cough * Bipolar disorder * Morbid obesity * Chronic pain and anxiety syndrome * Tobacco abuse * Acute on chronic respiratory failure with hypoxia Plan * continue IV Solu-Medrol, continue by mouth antibiotics with Levaquin. Will obtain pulmonary consultation as patient is not improving. * Recommended warm humidification at home. * We'll give a dose of magnesium sulfate * Start Robitussin with codeine * continue on nebulizer treatment, * Resume home medications * Nicotine patch * Resume opioids and benzo as taken at home. * Extensive conversation and counseling on tobacco cessation patient verbalized understanding * Peak flow meter and instructed on how to use * DVT and GI prophylaxis * Weight loss counseling provided to the patient due to patient verbalized understanding * I discussed with the patient will continue inpatient care from [facility]. History Interval history: Patient seen and examined this morning still with persistent nonproductive cough , appears uncomfortable. Audible wheezing heard across the room. No other adverse event reported by nursing staff. Hospitalist Physical - Physical exam Narrative exam: VITAL SIGNS: Reviewed. GENERAL: The patient appeared well nourished and normally developed, intermittent coughing spell.obese. Vital signs as documented. HEAD: No signs of head trauma. EYES: Pupils are equal. Extraocular motions intact. EARS: Hearing grossly intact. MOUTH: Oropharynx is normal. NECK: No adenopathy, no JVD. CHEST: Chest with bilateral expiratory wheezing. No accessory muscle use. CARDIAC: Regular rate and rhythm. S1 and S2, without murmurs, gallops, or rubs. VASCULAR: No Edema. Peripheral pulses normal and equal in all extremities. ABDOMEN: Soft, without detectable tenderness. No sign of distention. No rebound or guarding, and no masses palpated. Bowel Sounds normal. MUSCULOSKELETAL: Good range of motion of all major joints. Extremities without clubbing, cyanosis or edema. NEUROLOGIC EXAM: Alert and oriented x 3. No focal sensory or strength deficits. Speech normal. Follows commands. PSYCHIATRIC: Mood normal. SKIN: No rash or lesions. - Constitutional Vitals: Temp Pulse Resp BP Pulse Ox 98.0 F 113 H 18 136/65 94 01/10/17 08:00 01/10/17 08:00 01/10/17 08:00 01/10/17 08:00 01/10/17 08:00 Results - Labs CBC & Chem 7: 01/06/17 08:48 01/05/17 21:37 Labs: Laboratory Last Values WBC 7.8 K/mm3 (4.5-11.0) 01/06/17 08:48 RBC 5.02 M/mm3 (3.65-5.03) 01/06/17 08:48 Hgb 13.6 gm/dl (10.1-14.3) 01/06/17 08:48 Hct 42.9 % (30.3-42.9) 01/06/17 08:48 MCV 85 fl (79-97) 01/06/17 08:48 MCH 27 pg (28-32) L 01/06/17 08:48 MCHC 32 % (30-34) 01/06/17 08:48 RDW 14.5 % (13.2-15.2) 01/06/17 08:48 Plt Count 325 K/mm3 (140-440) 01/06/17 08:48 Lymph % (Auto) 22.2 % (13.4-35.0) 01/06/17 08:48 [place] % (Auto) 12.9 % (0.0-7.3) H 01/06/17 08:48 Eos % (Auto) 3.2 % (0.0-4.3) 01/06/17 08:48 Baso % (Auto) 1.1 % (0.0-1.8) 01/06/17 08:48 Lymph # 1.7 K/mm3 (1.2-5.4) 01/06/17 08:48 [place] # 1.0 K/mm3 (0.0-0.8) H 01/06/17 08:48 Eos # 0.3 K/mm3 (0.0-0.4) 01/06/17 08:48 Baso # 0.1 K/mm3 (0.0-0.1) 01/06/17 08:48 Seg Neutrophils % 60.6 % (40.0-70.0) 01/06/17 08:48 Seg Neutrophils # 4.7 K/mm3 (1.8-7.7) 01/06/17 08:48 POC ABG pH 7.407 (7.35-7.45) 01/06/17 12:04 POC ABG pCO2 47.1 (35-45) H 01/06/17 12:04 POC ABG pO2 56 (80-105) L 01/06/17 12:04 POC ABG HCO3 29.7 01/06/17 12:04 POC ABG Total CO2 31 01/06/17 12:04 POC ABG O2 Sat 89 01/06/17 12:04 POC ABG Base Excess 5 01/06/17 12:04 FiO2 21 % 01/06/17 12:04 Sodium 143 mmol/L (137-145) 01/05/17 21:37 Potassium 4.1 mmol/L (3.6-5.0) 01/05/17 21:37 Chloride 101.6 mmol/L (98-107) 01/05/17 21:37 Carbon Dioxide 28 mmol/L (22-30) 01/05/17 21:37 Anion Gap 18 mmol/L 01/05/17 21:37 BUN 6 mg/dL (7-17) L 01/05/17 21:37 Creatinine 0.7 mg/dL (0.7-1.2) 01/05/17 21:37 Estimated GFR > 60 ml/min 01/05/17 21:37 BUN/Creatinine Ratio 8.57 % 01/05/17 21:37 Glucose 113 mg/dL (65-100) H 01/05/17 21:37 Calcium 8.6 mg/dL (8.4-10.2) 01/05/17 21:37 Total Bilirubin < 0.2 mg/dL (0.1-1.2) 01/05/17 21:37 AST 14 units/L (5-40) 01/05/17 21:37 ALT 15 units/L (7-56) 01/05/17 21:37 Alkaline Phosphatase 153 units/L (35-129) H 01/05/17 21:37 Total Protein 7.6 g/dL (6.3-8.2) 01/05/17 21:37 Albumin 3.5 g/dL (3.9-5) L 01/05/17 21:37 Albumin/Globulin Ratio 0.9 % 01/05/17 21:37 Urine Color Yellow (Yellow) 01/06/17 08:45 Urine Turbidity Clear (Clear) 01/06/17 08:45 Urine pH 6.0 (5.0-7.0) 01/06/17 08:45 Ur Specific [place] 1.015 (1.003-1.030) 01/06/17 08:45 Urine Protein <15 mg/dl mg/dL (Negative) 01/06/17 08:45 Urine Glucose (UA) Neg mg/dL (Negative) 01/06/17 08:45 Urine Ketones Neg mg/dL (Negative) 01/06/17 08:45 Urine Blood Neg (Negative) 01/06/17 08:45 Urine Nitrite Neg (Negative) 01/06/17 08:45 Urine Bilirubin Neg (Negative) 01/06/17 08:45 Urine Urobilinogen < 2.0 mg/dL (<2.0) 01/06/17 08:45 Ur Leukocyte Esterase Neg (Negative) 01/06/17 08:45 Urine WBC (Auto) 1.0 /HPF (0.0-6.0) 01/06/17 08:45 Urine RBC (Auto) 2.0 /HPF (0.0-6.0) 01/06/17 08:45 U Epithel Cells (Auto) 1.0 /HPF (0-13.0) 01/06/17 08:45 Urine Mucus Few /HPF 01/06/17 08:45
[2017-01-10] MEDS: ROBITUSSIN AC PO PRN ×2 (13:07→19:30)
[2017-01-10] MEDS: NEURONTIN PO SCH ×4 (13:08→21:50)
[2017-01-10] MEDS ORDERED: MAGNESIUM SULFATE 1 GM in NACL 0.9% 50 ML IV ONE (14:00)
[2017-01-10] MEDS ORDERED: DUONEB 0.5 MG-3 MG/3 ML SOLN IH SCH (14:00)
--- NOTE | 2017-01-10 16:52 | Consultation ---
History of Present Illness Consult date: 01/10/17 Requesting physician: BALWINDER PAULSON Reason for consult: asthma, COPD History of present illness: 56 yo admitted w/ worsening SOB, wheezing, hypoxia, chest congestion, anterior chest pain. No fevers, chills, hemoptysis, hx of PE. Active Medications Acetaminophen (Tylenol) 650 mg PO Q4H PRN PRN Reason: Pain MILD(1-3)/Fever >100.5/HIGH Albuterol (Proventil) 2.5 mg IH Q4HRT PRN PRN Reason: Shortness Of Breath Albuterol/Ipratropium (Duoneb 0.5 Mg-3 Mg/3 Ml Soln) 1 ampul IH Q4HRT [facility] Last Admin: 01/10/17 16:15 Dose: 1 ampul Alprazolam (Xanax) 2 mg PO BID PRN PRN Reason: Agitation Last Admin: 01/09/17 13:28 Dose: 2 mg Arformoterol Tartrate (Brovana Nebu) 15 mcg IH Q12HRT [facility] Bisacodyl (Dulcolax) 10 mg UT QDAY PRN PRN Reason: Constipation unrelieved by MOM Budesonide (Pulmicort) 0.5 mg IH Q12HRT [facility] Gabapentin (Neurontin) 400 mg PO QID [facility] Last Admin: 01/10/17 13:08 Dose: 400 mg Levofloxacin (Levaquin) 750 mg PO Q24HR [facility] Last Admin: 01/10/17 11:24 Dose: 750 mg Magnesium Hydroxide (Milk Of Magnesia) 30 ml PO Q4H PRN PRN Reason: Constipation Memantine (Namenda Xr) 7 mg PO QDAY [facility] Last Admin: 01/10/17 12:18 Dose: 7 mg Methylprednisolone Sodium Succinate (Solu-Medrol) 40 mg IV Q8HR [facility] Last Admin: 01/10/17 13:13 Dose: 40 mg Montelukast Sodium (Singulair) 10 mg PO QHS [facility] Last Admin: 01/09/17 22:53 Dose: 10 mg Nicotine (Habitrol) 21 mg TD QDAY [facility] Last Admin: 01/10/17 11:24 Dose: 21 mg Olanzapine (Zyprexa) 5 mg PO QHS [facility] Last Admin: 01/09/17 22:51 Dose: 5 mg Ondansetron HCl (Zofran) 4 mg IV Q8H PRN PRN Reason: N/V unrelieved by Reglan Oxycodone/Acetaminophen (Percocet 5/325) 1 tab PO Q6H PRN PRN Reason: Pain, Moderate (4-6) Last Admin: 01/10/17 11:52 Dose: 1 tab Pseudoephedrine/Acetam/Chlorphenir (Robitussin Ac) 10 ml PO Q4H PRN PRN Reason: Cough Last Admin: 01/10/17 13:07 Dose: 10 ml Zolpidem Tartrate (Ambien) 10 mg PO QHS [facility] Last Admin: 01/09/17 22:53 Dose: 10 mg Past History Past Medical History: other (bipolar, asthma) Past Surgical History: No surgical history Social history: no significant social history, full code. denies: alcohol abuse , prescription drug abuse, IV drug use Family history: other (No pulm issues reported) Medications and Allergies Allergies Allergy/AdvReac Type Severity Reaction Status Date / Time No Known Allergies Allergy Unverified 01/05/17 20:49 Home Medications Medication Instructions Recorded Confirmed Last Taken Type Fluticasone/Salmeterol [Advair 1 puff IH BID 01/06/17 01/06/17 Unknown History Diskus 250-50 mcg] Gabapentin [Neurontin] 400 mg PO QID 01/06/17 01/06/17 Unknown History Memantine HCl 5 mg PO DAILY 01/06/17 01/06/17 Unknown History Montelukast [Singulair] 10 mg PO QHS 01/06/17 01/06/17 Unknown History Olanzapine [OLANZapine] 5 mg PO QHS 01/06/17 01/06/17 Unknown History Omeprazole 40 mg PO DAILY 01/06/17 01/06/17 Unknown History Zolpidem [Ambien] 10 mg PO QHS 01/06/17 01/06/17 Unknown History ALBUTEROL NEB's [Proventil 0.083% 90 mcg IH QID #30 nebu 01/09/17 Unknown Rx NEBS] ALPRAZolam [Xanax TAB] 2 mg PO BID PRN #10 tablet 01/09/17 Unknown Rx Amoxicillin/K Clav Tab [Augmentin 1 tab PO Q12HR #10 tab 01/09/17 Unknown Rx 875 mg] predniSONE [Deltasone] 10 mg PO .TAPER #48 tab 01/09/17 Unknown Rx Active Meds: Active Medications Acetaminophen (Tylenol) 650 mg PO Q4H PRN PRN Reason: Pain MILD(1-3)/Fever >100.5/HIGH Albuterol (Proventil) 2.5 mg IH Q4HRT PRN PRN Reason: Shortness Of Breath Albuterol/Ipratropium (Duoneb 0.5 Mg-3 Mg/3 Ml Soln) 1 ampul IH Q4HRT [facility] Last Admin: 01/10/17 16:15 Dose: 1 ampul Alprazolam (Xanax) 2 mg PO BID PRN PRN Reason: Agitation Last Admin: 01/09/17 13:28 Dose: 2 mg Arformoterol Tartrate (Brovana Nebu) 15 mcg IH Q12HRT [facility] Bisacodyl (Dulcolax) 10 mg UT QDAY PRN PRN Reason: [place] [facility] Budesonide (Pulmicort) 0.5 mg IH Q12HRT [facility] Gabapentin (Neurontin) 400 mg PO QID [facility] Last Admin: 01/10/17 13:08 Dose: 400 mg Levofloxacin (Levaquin) 750 mg PO Q24HR [facility] Last Admin: 01/10/17 11:24 Dose: 750 mg Magnesium Hydroxide (Milk Of Magnesia) 30 ml PO Q4H PRN PRN Reason: Constipation Memantine (Namenda Xr) 7 mg PO QDAY [facility] Last Admin: 01/10/17 12:18 Dose: 7 mg Methylprednisolone Sodium Succinate (Solu-Medrol) 40 mg IV Q8HR [facility] Last Admin: 01/10/17 13:13 Dose: 40 mg Montelukast Sodium (Singulair) 10 mg PO QHS [facility] Last Admin: 01/09/17 22:53 Dose: 10 mg Nicotine (Habitrol) 21 mg TD QDAY [facility] Last Admin: 01/10/17 11:24 Dose: 21 mg Olanzapine (Zyprexa) 5 mg PO QHS [facility] Last Admin: 01/09/17 22:51 Dose: 5 mg Ondansetron HCl (Zofran) 4 mg IV Q8H PRN PRN Reason: N/V unrelieved by Reglan Oxycodone/Acetaminophen (Percocet 5/325) 1 tab PO Q6H PRN PRN Reason: Pain, Moderate (4-6) Last Admin: 01/10/17 11:52 Dose: 1 tab Pseudoephedrine/Acetam/Chlorphenir (Robitussin Ac) 10 ml PO Q4H PRN PRN Reason: Cough Last Admin: 01/10/17 13:07 Dose: 10 ml Zolpidem Tartrate (Ambien) 10 mg PO QHS [facility] Last Admin: 01/09/17 22:53 Dose: 10 mg Review of Systems All systems: negative Physical Examination Vital signs: Vital Signs Temp Pulse Resp BP Pulse Ox 98.6 F 120 H 26 H 140/88 92 01/05/17 20:39 01/05/17 20:39 01/05/17 20:39 01/05/17 20:39 01/05/17 20:39 Vital Signs - 24 hr 01/09/17 01/09/17 01/09/17 17:00 19:31 19:46 Temperature 98.5 F Pulse Rate [ 118 H 122 H Anterior Bilateral Throughout] Pulse Rate [ 122 H Right Radial] Respiratory 20 Rate Respiratory 28 H 19 Rate [Anterior Bilateral Throughout] Blood Pressure 119/66 [Right Arm] O2 Sat by Pulse 98 Oximetry 01/09/17 01/10/17 01/10/17 22:00 00:00 01:51 Temperature 98.1 F Pulse Rate [ 90 Anterior Bilateral Throughout] Pulse Rate [ 96 H Right Radial] Respiratory 24 24 Rate Respiratory 20 Rate [Anterior Bilateral Throughout] Blood Pressure 136/85 [Right Arm] O2 Sat by Pulse 93 93 Oximetry 01/10/17 01/10/17 01/10/17 02:00 07:40 07:41 Temperature Pulse Rate [ 98 H 98 H Anterior Bilateral Throughout] Pulse Rate [ Right Radial] Respiratory Rate Respiratory 20 20 Rate [Anterior Bilateral Throughout] Blood Pressure [Right Arm] O2 Sat by Pulse 99 Oximetry 01/10/17 01/10/17 01/10/17 07:53 07:55 08:00 Temperature 98.0 F Pulse Rate [ 99 H Anterior Bilateral Throughout] Pulse Rate [ 113 H Right Radial] Respiratory 18 Rate Respiratory 20 Rate [Anterior Bilateral Throughout] Blood Pressure 136/65 [Right Arm] O2 Sat by Pulse 99 94 Oximetry 01/10/17 01/10/17 01/10/17 13:12 13:25 15:00 Temperature 98.0 F Pulse Rate [ 122 H 119 H Anterior Bilateral Throughout] Pulse Rate [ 109 H Right Radial] Respiratory 18 Rate Respiratory 24 20 Rate [Anterior Bilateral Throughout] Blood Pressure 120/79 [Right Arm] O2 Sat by Pulse 96 Oximetry 01/10/17 01/10/17 16:15 16:24 Temperature Pulse Rate [ 107 H 121 H Anterior Bilateral Throughout] Pulse Rate [ Right Radial] Respiratory Rate Respiratory 24 20 Rate [Anterior Bilateral Throughout] Blood Pressure [Right Arm] O2 Sat by Pulse Oximetry General appearance: no acute distress, alert Eyes: non-icteric ENT: oropharynx moist Neck: supple Effort: normal Ascultation: Bilateral: wheezes Cardiovascular: other (tachy, RR; no mrg) Gastrointestinal: normoactive bowel sounds, soft, non-tender, non-distended Integumentary: normal Extremities: no cyanosis, no edema, pink and warm Musculoskeletal: no deformities normal mental status, non-focal exam, pupils equal and round, CN II-XII normal mood appropriate, affect normal Results - Laboratory Findings CBC and BMP: 01/06/17 08:48 01/05/17 21:37 ABG POC ABG pH 7.407 (7.35-7.45) 01/06/17 12:04 POC ABG pCO2 47.1 (35-45) H 01/06/17 12:04 POC ABG pO2 56 (80-105) L 01/06/17 12:04 POC ABG HCO3 29.7 01/06/17 12:04 POC ABG Total CO2 31 01/06/17 12:04 POC ABG O2 Sat 89 01/06/17 12:04 Abnormal lab findings: Abnormal Labs 01/06/17 12:04 POC ABG pCO2 47.1 H POC ABG pO2 56 L - Diagnostic Findings Chest x-ray: report reviewed, image reviewed Assessment and Plan Imp: 1. Acute bronchitis 2. Asthma exac. 3. COPD exac. 4. Acute respiratory failure, hypoxia 5. Morbid obesity Rec: 1. Agree w/ current regimen 2. Since not improving + recent long trip from [place] by car -> CTA chest 3. Weight loss 4. Outpatient PFTs +/- PSG Plan of care reviewed w/ patient, she understands/agrees Thanks kindly for the consult. Will follow closely.
[2017-01-10] MEDS ORDERED: NACL ONE (17:59)
--- NOTE | 2017-01-10 19:21 | Cat Scan Report ---
FINAL REPORT EXAM: CT ANGIO CHEST HISTORY: SOB, Chest pain, Recent long car trip TECHNIQUE: CT chest CT angiogram with reconstructions PRIORS: None. FINDINGS: Opacification of the pulmonary arteries is suboptimal. Within the limits of the exam there is is no evidence of filling defect within the central pulmonary vasculature to suggest the presence of acute pulmonary embolus. No evidence of mediastinal pathologic lymph node enlargement Heart and great vessels are unremarkable. The aorta is normal in caliber. No focal pulmonary infiltrate identified. No pleural fluid collection seen. Pleural parenchymal scarring noted at the lingula. Visualized portion of the upper abdomen demonstrates no acute change. IMPRESSION: Suboptimal opacification the pulmonary arteries. Within the limits of the exam no central acute pulmonary embolus identified. Pleural parenchymal scarring at the lingula Otherwise no acute changes
[2017-01-10] MEDS: SINGULAIR PO SCH (21:42)
[2017-01-10] MEDS: AMBIEN PO SCH (21:42)
[2017-01-10] MEDS: XANAX PO PRN (21:42)
[2017-01-11] MEDS: DUONEB 0.5 MG-3 MG/3 ML SOLN IH SCH ×6 (00:07→19:42)
[2017-01-11] MEDS: ROBITUSSIN AC PO PRN ×4 (00:08→17:18)
[2017-01-11] MEDS: BROVANA NEBU IH SCH ×2 (07:18→19:46)
[2017-01-11] MEDS: PULMICORT IH SCH ×2 (07:18→19:42)
[2017-01-11] MEDS: NEURONTIN PO SCH ×4 (09:25→21:39)
[2017-01-11] MEDS: LEVAQUIN PO SCH (09:25)
[2017-01-11] MEDS: NAMENDA XR PO SCH (09:26)
[2017-01-11] MEDS: HABITROL TD SCH (09:26)
[2017-01-11] MEDS: PERCOCET 5/325 PO PRN ×2 (09:31→17:18)
--- NOTE | 2017-01-11 09:35 | Query-Infection ---
"Dear Date:_01/11/17 [employer]/CDS:Hung Williamson Phone#:[phone] Exercise your independent professional judgment when responding to this query. Questions asked do not imply a particular answer is desired or expected. We greatly appreciate your clarification on this issue. Clinical Documentation States: Patient is a pleasant 56-year-old female with history of COPD, asthma, bipolar disorder, who is visiting from [facility] reports that she unfortunately forgot her nebulizer. She's been here for about 2 days and began having increased shortness of breath or wheezing. She denies any environmental allergies. She denies a prior history of surgery. She denies any prior intubation due to pulmonary condition. Clinical findings show: (please check applicable parameters) Infection, known /suspected, with some of the following indicators; Specify the infection: Acute bacterial bronchitis HR: 120 on admission RR: 26 on admission Given Levaquin 3 General parameters [ ] Fever (core temp >38.30C or 100.40F) [ ] Hypothermia (core temp <36C) [ ] Heart rate >90 bpm [ ] Tachypnea: >20 bpm or pCO2 < 32 mmHg [ ] Altered mental status [ ] Significant edema / +ve fluid balance (>20 ml/kg 24 h) [ ] Hyperglycemia (Bl. glucose >110 mg/dl) w/o diabetes Inflammatory parameters [ ] Leukocytosis (white blood cell count >12,000/l) [ ] Leukopenia (white blood cell count <4,000/l) [ ] Bandemia (immature WBC > 10%) [ ] Leucocyte Left Shift [ ] Plasma procalcitonin>2 SD above the normal value Hemodynamic and tissue perfusion parameters [ ] Arterial hypotension(SBP <90 mmHg, MAP <70 mmHg,or a SBP drop >40 mmHg in adults) [ ] Hyperlactatemia (>3 mmol/l) [ ] Anion Gap (> 11mEG/l) [ ] Decreased capillary refill or mottling Organ dysfunction parameters [ ] Arterial hypoxemia (PaO2/FIO2 <300) [ ] Creatinine increase =0.5 mg/dl [ ] Acute oliguria (urine output <0.5 ml | kg |h or 45 mM/l for at least 2 hrs) [ ] Coagulation abnormalities (INR >1.5 or activated partial thromboplastin time >60 s) [ ] Ileus (absent cherry wel sounds) [ ] Thrombocytopenia (platelet count <100,000/l) [ ] Hyperbilirubinemia (plasma total bilirubin >4 mg/dl) According to the clinical indications above, can Bacteremia be further specified? If so, please indicate below and in your Progress Notes and/ or Discharge Summary. Indicate if the condition was present on admission. PHYSICIAN RESPONSE: [ ] Sepsis [ ] Severe Sepsis [ ] Septic Shock [ ] Septicemia [ ] Sepsis now resolved [ ] SIRS due to non-infectious cause with organ dysfunction [x ] SIRS due to non-infectious cause without organ dysfunction [ ] Other: [ ] Comment/Explanation: Present on Admission: [ y] Yes (Y) [ ] Clinically undeterminable (W) [ ] No (N) [ ] Ruled Out Please also document response in your Progress Notes and/or Discharge Summary and indicate if the condition was present on admission Notes: SIRS/ SIRS WITH ORGAN DYSFUNCTION Systemic inflammatory response syndrome (SIRS) generally refers to the systemic response to trauma/castanon or other insult such as Acute Myocardial Infarction, Acute Pancreatitis, and Major Surgery with symptoms including fever, tachycardia , tachypnea, and leukocytosis (1). BACTEREMIA Presence of viable bacteria in the circulating blood (2). This term is reserved for patients that do not manifest above SIRS response. SEPTICEMIA Generally refers to a systemic disease associated with the presence of pathological microorganisms or toxins in the blood, which can include bacteria, viruses, fungi or other organisms (1). SEPSIS Generally refers to SIRS due infection (1). SEVERE SEPSIS Generally refers to sepsis associated with acute organ dysfunction (1). SEPTIC SHOCK Generally refers to circulatory failure associated with severe sepsis (2), and defined as hypotension or hypoperfusion despite adequate fluid resuscitation (1 hour) (3). REFERENCES: 1. [place] [employer]/Society of Critical Care Medicine Consensus Conference. Definitions for sepsis and organ failure and guidelines for the use of innovative therapies in sepsis. Critical Care Med 1992;20:864 - 74. 2. Tim lopez MM, Monet MP, Mak ADAME, Manuel E, Iggy D, Mike D, Steven J, Belcher SM , Shar JL, Xenia G; International Sepsis Definitions Conference. 2001 SCCM/ESICM/ACCP/ATS/SIS International Sepsis Definitions Conference. Intensive Care Med. 2002;29(4):530-8. Epub 2002Jan 04. Review. PubMed PMID:[id number] 3. ICD-9-CM Official Guidelines for Coding and Reporting 4. Medscape Drugs, Diseases and Procedures references 5. [employer] Textbook of Internal Medicine. 18th Edition MTDD"
--- NOTE | 2017-01-11 13:54 | Progress Note ---
Assessment and Plan Imp: 1. Acute bronchitis 2. Asthma exac. 3. COPD exac. 4. Acute respiratory failure, hypoxia 5. Morbid obesity 6. Chronic nicotine dependence, cigs Rec: 1. Taper Solumedrol; long prednisone taper at d/c 2. Finish ~ 7 days of ABX 3. Weight loss 4. Outpatient PFTs +/- PSG 5. D/c smoking, counseled Plan of care reviewed w/ patient, she understands/agrees Subjective Date of service: 01/11/17 Principal diagnosis: COPD exac. Interval history: Feeling better today. Decreased SOB and wheezing. Has cough, no sputum. Active Medications Acetaminophen (Tylenol) 650 mg PO Q4H PRN PRN Reason: Pain MILD(1-3)/Fever >100.5/HIGH Albuterol (Proventil) 2.5 mg IH Q4HRT PRN PRN Reason: Shortness Of Breath Albuterol/Ipratropium (Duoneb 0.5 Mg-3 Mg/3 Ml Soln) 1 ampul IH Q4HRT [facility] Last Admin: 01/11/17 12:41 Dose: 1 ampul Alprazolam (Xanax) 2 mg PO BID PRN PRN Reason: Agitation Last Admin: 01/10/17 21:42 Dose: 2 mg Arformoterol Tartrate (Brovana Nebu) 15 mcg IH Q12HRT [facility] Last Admin: 01/11/17 07:18 Dose: Not Given Bisacodyl (Dulcolax) 10 mg LA QDAY PRN PRN Reason: Constipation unrelieved by MOM Budesonide (Pulmicort) 0.5 mg IH Q12HRT [facility] Last Admin: 01/11/17 07:18 Dose: 0.5 mg Gabapentin (Neurontin) 400 mg PO QID [facility] Last Admin: 01/11/17 13:27 Dose: 400 mg Levofloxacin (Levaquin) 750 mg PO Q24HR [facility] Last Admin: 01/11/17 09:25 Dose: 750 mg Magnesium Hydroxide (Milk Of Magnesia) 30 ml PO Q4H PRN PRN Reason: Constipation Memantine (Namenda Xr) 7 mg PO QDAY [facility] Last Admin: 01/11/17 09:26 Dose: 7 mg Methylprednisolone Sodium Succinate (Solu-Medrol) 20 mg IV Q8HR [facility] Montelukast Sodium (Singulair) 10 mg PO QHS [facility] Last Admin: 01/10/17 21:42 Dose: 10 mg Nicotine (Habitrol) 21 mg TD QDAY [facility] Last Admin: 01/11/17 09:26 Dose: 21 mg Olanzapine (Zyprexa) 5 mg PO QHS [facility] Last Admin: 01/10/17 21:42 Dose: 5 mg Ondansetron HCl (Zofran) 4 mg IV Q8H PRN PRN Reason: N/V unrelieved by Reglan Oxycodone/Acetaminophen (Percocet 5/325) 1 tab PO Q6H PRN PRN Reason: Pain, Moderate (4-6) Last Admin: 01/11/17 09:31 Dose: 1 tab Pseudoephedrine/Acetam/Chlorphenir (Robitussin Ac) 10 ml PO Q4H PRN PRN Reason: Cough Last Admin: 01/11/17 13:27 Dose: 10 ml Zolpidem Tartrate (Ambien) 10 mg PO QHS [facility] Last Admin: 01/10/17 21:42 Dose: 10 mg Objective Vital Signs - 12hr 01/11/17 01/11/17 01/11/17 04:02 04:09 07:17 Temperature Pulse Rate [ 114 H 116 H Anterior Bilateral Throughout] Pulse Rate [ Right Radial] Respiratory Rate Respiratory 20 18 Rate [Anterior Bilateral Throughout] Blood Pressure [Right Arm] O2 Sat by Pulse 99 Oximetry 01/11/17 01/11/17 01/11/17 07:19 07:29 08:00 Temperature 98.1 F Pulse Rate [ 94 H 111 H Anterior Bilateral Throughout] Pulse Rate [ 105 H Right Radial] Respiratory 24 Rate Respiratory 20 20 Rate [Anterior Bilateral Throughout] Blood Pressure 127/83 [Right Arm] O2 Sat by Pulse 98 Oximetry 01/11/17 01/11/17 12:41 12:51 Temperature Pulse Rate [ 110 H 101 H Anterior Bilateral Throughout] Pulse Rate [ Right Radial] Respiratory Rate Respiratory 20 20 Rate [Anterior Bilateral Throughout] Blood Pressure [Right Arm] O2 Sat by Pulse Oximetry Constitutional: no acute distress, alert Eyes: non-icteric ENT: oropharynx moist Neck: supple Effort: normal Ascultation: Bilateral: wheezes (better) Cardiovascular: other (tachy, RR; no mrg) Gastrointestinal: normoactive bowel sounds, soft, non-tender, non-distended Integumentary: normal Extremities: no cyanosis, no edema, pink and warm Neurologic: normal mental status, non-focal exam, pupils equal and round, CN II- XII normal Psychiatric: mood appropriate, affect normal CBC and BMP: 01/06/17 08:48 01/05/17 21:37 ABG, PT/INR, D-dimer: ABG POC ABG pH 7.407 (7.35-7.45) 01/06/17 12:04 POC ABG pCO2 47.1 (35-45) H 01/06/17 12:04 POC ABG pO2 56 (80-105) L 01/06/17 12:04 POC ABG HCO3 29.7 01/06/17 12:04 POC ABG Total CO2 31 01/06/17 12:04 POC ABG O2 Sat 89 01/06/17 12:04 Abnormal lab findings: Abnormal Labs 01/06/17 12:04 POC ABG pCO2 47.1 H POC ABG pO2 56 L Chest x-ray: report reviewed, image reviewed CT scan - chest: report reviewed, image reviewed (mild emphysema RUL, mild scarring lingula, o/w unremarkable)
--- NOTE | 2017-01-11 13:55 | Progress Note ---
Assessment and Plan Assessment and plan: Patient is a pleasant 56-year-old female with history of COPD, asthma, bipolar disorder, who is visiting from [facility] reports that she unfortunately forgot her nebulizer. She's been here for about 2 days and began having increased shortness of breath or wheezing. She denies any environmental allergies. She denies a prior history of surgery. She denies any prior intubation due to pulmonary condition. She denies any fever, nausea, vomiting, diarrhea. She denies any chest pain. She does note some cough but nonproductive. * Asthma exacerbation * Acute bacterial bronchitis * Non productive Cough * Bipolar disorder * Morbid obesity * Chronic pain and anxiety syndrome * Tobacco abuse * Acute on chronic respiratory failure with hypoxia Plan * continue IV Solu-Medrol, continue by mouth antibiotics with Levaquin. Pulmonary input noted * CTA negative for PE * Recommended warm humidification at home. * Start Robitussin with codeine * continue on nebulizer treatment, * Resume home medications * Nicotine patch * Resume opioids and benzo as taken at home. * Extensive conversation and counseling on tobacco cessation patient verbalized understanding * Peak flow meter and instructed on how to use * DVT and GI prophylaxis * Weight loss counseling provided to the patient due to patient verbalized understanding * Continue inpatient care, anticipate discharge. History Interval history: Patient seen and examined this morning still with persistent nonproductive cough , some improvement noted today. No other adverse event reported by nursing staff. Hospitalist Physical - Physical exam Narrative exam: VITAL SIGNS: Reviewed. GENERAL: The patient appeared well nourished and normally developed, intermittent coughing spell.obese. Vital signs as documented. HEAD: No signs of head trauma. EYES: Pupils are equal. Extraocular motions intact. EARS: Hearing grossly intact. MOUTH: Oropharynx is normal. NECK: No adenopathy, no JVD. CHEST: Chest with bilateral expiratory wheezing. No accessory muscle use. CARDIAC: Regular rate and rhythm. S1 and S2, without murmurs, gallops, or rubs. VASCULAR: No Edema. Peripheral pulses normal and equal in all extremities. ABDOMEN: Soft, without detectable tenderness. No sign of distention. No rebound or guarding, and no masses palpated. Bowel Sounds normal. MUSCULOSKELETAL: Good range of motion of all major joints. Extremities without clubbing, cyanosis or edema. NEUROLOGIC EXAM: Alert and oriented x 3. No focal sensory or strength deficits. Speech normal. Follows commands. PSYCHIATRIC: Mood normal. SKIN: No rash or lesions. - Constitutional Vitals: Temp Pulse Resp BP Pulse Ox 98.1 F 101 H 20 127/83 98 01/11/17 08:00 01/11/17 12:51 01/11/17 12:51 01/11/17 08:00 01/11/17 08:00 Results - Labs CBC & Chem 7: 01/06/17 08:48 01/05/17 21:37 Labs: Laboratory Last Values WBC 7.8 K/mm3 (4.5-11.0) 01/06/17 08:48 RBC 5.02 M/mm3 (3.65-5.03) 01/06/17 08:48 Hgb 13.6 gm/dl (10.1-14.3) 01/06/17 08:48 Hct 42.9 % (30.3-42.9) 01/06/17 08:48 MCV 85 fl (79-97) 01/06/17 08:48 MCH 27 pg (28-32) L 01/06/17 08:48 MCHC 32 % (30-34) 01/06/17 08:48 RDW 14.5 % (13.2-15.2) 01/06/17 08:48 Plt Count 325 K/mm3 (140-440) 01/06/17 08:48 Lymph % (Auto) 22.2 % (13.4-35.0) 01/06/17 08:48 [place] % (Auto) 12.9 % (0.0-7.3) H 01/06/17 08:48 Eos % (Auto) 3.2 % (0.0-4.3) 01/06/17 08:48 Baso % (Auto) 1.1 % (0.0-1.8) 01/06/17 08:48 Lymph # 1.7 K/mm3 (1.2-5.4) 01/06/17 08:48 [place] # 1.0 K/mm3 (0.0-0.8) H 01/06/17 08:48 Eos # 0.3 K/mm3 (0.0-0.4) 01/06/17 08:48 Baso # 0.1 K/mm3 (0.0-0.1) 01/06/17 08:48 Seg Neutrophils % 60.6 % (40.0-70.0) 01/06/17 08:48 Seg Neutrophils # 4.7 K/mm3 (1.8-7.7) 01/06/17 08:48 POC ABG pH 7.407 (7.35-7.45) 01/06/17 12:04 POC ABG pCO2 47.1 (35-45) H 01/06/17 12:04 POC ABG pO2 56 (80-105) L 01/06/17 12:04 POC ABG HCO3 29.7 01/06/17 12:04 POC ABG Total CO2 31 01/06/17 12:04 POC ABG O2 Sat 89 01/06/17 12:04 POC ABG Base Excess 5 01/06/17 12:04 FiO2 21 % 01/06/17 12:04 Sodium 143 mmol/L (137-145) 01/05/17 21:37 Potassium 4.1 mmol/L (3.6-5.0) 01/05/17 21:37 Chloride 101.6 mmol/L (98-107) 01/05/17 21:37 Carbon Dioxide 28 mmol/L (22-30) 01/05/17 21:37 Anion Gap 18 mmol/L 01/05/17 21:37 BUN 6 mg/dL (7-17) L 01/05/17 21:37 Creatinine 0.7 mg/dL (0.7-1.2) 01/05/17 21:37 Estimated GFR > 60 ml/min 01/05/17 21:37 BUN/Creatinine Ratio 8.57 % 01/05/17 21:37 Glucose 113 mg/dL (65-100) H 01/05/17 21:37 Calcium 8.6 mg/dL (8.4-10.2) 01/05/17 21:37 Total Bilirubin < 0.2 mg/dL (0.1-1.2) 01/05/17 21:37 AST 14 units/L (5-40) 01/05/17 21:37 ALT 15 units/L (7-56) 01/05/17 21:37 Alkaline Phosphatase 153 units/L (35-129) H 01/05/17 21:37 Total Protein 7.6 g/dL (6.3-8.2) 01/05/17 21:37 Albumin 3.5 g/dL (3.9-5) L 01/05/17 21:37 Albumin/Globulin Ratio 0.9 % 01/05/17 21:37 Urine Color Yellow (Yellow) 01/06/17 08:45 Urine Turbidity Clear (Clear) 01/06/17 08:45 Urine pH 6.0 (5.0-7.0) 01/06/17 08:45 Ur Specific [place] 1.015 (1.003-1.030) 01/06/17 08:45 Urine Protein <15 mg/dl mg/dL (Negative) 01/06/17 08:45 Urine Glucose (UA) Neg mg/dL (Negative) 01/06/17 08:45 Urine Ketones Neg mg/dL (Negative) 01/06/17 08:45 Urine Blood Neg (Negative) 01/06/17 08:45 Urine Nitrite Neg (Negative) 01/06/17 08:45 Urine Bilirubin Neg (Negative) 01/06/17 08:45 Urine Urobilinogen < 2.0 mg/dL (<2.0) 01/06/17 08:45 Ur Leukocyte Esterase Neg (Negative) 01/06/17 08:45 Urine WBC (Auto) 1.0 /HPF (0.0-6.0) 01/06/17 08:45 Urine RBC (Auto) 2.0 /HPF (0.0-6.0) 01/06/17 08:45 U Epithel Cells (Auto) 1.0 /HPF (0-13.0) 01/06/17 08:45 Urine Mucus Few /HPF 01/06/17 08:45
[2017-01-11] MEDS: AMBIEN PO SCH (21:39)
[2017-01-11] MEDS: SINGULAIR PO SCH (21:39)
[2017-01-12] MEDS: DUONEB 0.5 MG-3 MG/3 ML SOLN IH SCH ×4 (01:53→11:27)
[2017-01-12] MEDS: BROVANA NEBU IH SCH (07:20)
[2017-01-12] MEDS: PULMICORT IH SCH (07:20)
--- NOTE | 2017-01-12 07:58 | Discharge Summary ---
Providers - Providers Date of Admission: 01/06/17 09:29 Date of discharge: 01/12/17 Attending physician: BALWINDER PAULSON MD 01/10/17 10:12 Consult to Physician [CONS] Routine Consulting Provider: MAO SEXTON Reason For Exam: asthma exacerbation Place consult to:: DR. SEXTON Notified:: OFFICE Phone number called:: [phone] Was contact made?: Yes If yes, spoke with:: SHAHRIAR Time called:: 12:13 Comment:: HÉCTOR NOTIFIED Primary care physician: H[employer] [facility]TER Hospitalization Reason for admission: ASTHMA EXACERBATION Condition: Stable Hospital course: Patient is a pleasant 56-year-old female with history of COPD, asthma, bipolar disorder, who is visiting from [facility] reports that she unfortunately forgot her nebulizer. She's been here for about 2 days and began having increased shortness of breath or wheezing. She denies any environmental allergies. She denies a prior history of surgery. She denies any prior intubation due to pulmonary condition. She denies any fever, nausea, vomiting, diarrhea. She denies any chest pain. She does note some cough but nonproductive. prolonged hospitalization due to severity of exacerbation and severe exertional dyspnea. Patient was treated with tapering steriod dose and placed on abx, and also was seen by Pulmonary, CTA chest was done and was negative. Recommendations on discharge includes outpatient pulmonary eval, compliance with cpap and must quit tobacco use. I also encouraged weightloss. * Asthma exacerbation * Acute bacterial bronchitis * Non productive Cough * Bipolar disorder * Morbid obesity * Chronic pain and anxiety syndrome * Tobacco abuse * Acute on chronic respiratory failure with hypoxia Disposition: DISCHARGED TO HOME OR SELFCARE Time spent for discharge: 35 MINS Core Measure Documentation - Palliative Care Palliative Care/ Comfort Measures: Not Applicable - Core Measures Any of the following diagnoses?: none - VTE Discharge Requirements Deep Vein Thrombosis/Pulmonary Embolism Present on Admission: No Exam - Physical Exam Narrative exam: VITAL SIGNS: Reviewed. GENERAL: The patient appeared well nourished and normally developed, intermittent coughing spell.obese. Vital signs as documented. HEAD: No signs of head trauma. EYES: Pupils are equal. Extraocular motions intact. EARS: Hearing grossly intact. MOUTH: Oropharynx is normal. NECK: No adenopathy, no JVD. CHEST: Chest with bibasilar expiratory wheezes improved significantly from yesterday. No accessory muscle use. CARDIAC: Regular rate and rhythm. S1 and S2, without murmurs, gallops, or rubs. VASCULAR: No Edema. Peripheral pulses normal and equal in all extremities. ABDOMEN: Soft, without detectable tenderness. No sign of distention. No rebound or guarding, and no masses palpated. Bowel Sounds normal. MUSCULOSKELETAL: Good range of motion of all major joints. Extremities without clubbing, cyanosis or edema. NEUROLOGIC EXAM: Alert and oriented x 3. No focal sensory or strength deficits. Speech normal. Follows commands. PSYCHIATRIC: Mood normal. SKIN: No rash or lesions. - Constitutional Vitals: Temp Pulse Resp BP Pulse Ox 97.3 F L 84 18 127/73 96 01/11/17 22:59 01/12/17 07:30 01/12/17 07:30 01/11/17 22:59 01/12/17 07:22 Plan Activity: advance as tolerated, fall precautions Diet: low fat Special Instructions: record daily weights, record daily BP diary, smoking cessation Additional Instructions: MUST FOLLOW WITH PRIMARY ONLINE EDITOR FOR PSG AND KALA TEST. MUST BE COMPLIANT WITH CPAP. MUST QUIT TOBACCO USE Follow up with: PRIMARY CARE, [Primary Care Provider] - 3-5 Days Prescriptions: ALBUTEROL NEB's [Proventil 0.083% NEBS] 90 mcg IH QID #30 nebu ALPRAZolam [Xanax TAB] 2 mg PO BID PRN #10 tablet PRN Reason: Agitation Amoxicillin/K Clav Tab [Augmentin 875 mg] 1 tab PO Q12HR #10 tab predniSONE [Deltasone] 10 mg PO .TAPER #48 tab
[2017-01-12 08:32] VITALS: BP 116/77
[2017-01-12] MEDS: HABITROL TD SCH (09:54)
[2017-01-12] MEDS: NAMENDA XR PO SCH (09:54)
[2017-01-12] MEDS: LEVAQUIN PO SCH (09:54)
[2017-01-12] MEDS: NEURONTIN PO SCH (09:54)
[2017-01-12] MEDS: PERCOCET 5/325 PO PRN (09:59)
== END 2017-01-12 11:45 | disposition home or self-care (01) | DRG 189 ==
LOC: ED 20:33 → 3A 01-06 09:29
PROVIDERS: ADMIT Internal Medicine; ATTEND Internal Medicine
PROC: 4A033R1 Measurement of Arterial Saturation, Peripheral, Percutaneous Approach (ICD-10-PCS; principal; 2017-01-06)
DX: J96.21 Acute and chronic respiratory failure with hypoxia (principal); J45.901 Unspecified asthma with (acute) exacerbation; F17.210 Nicotine dependence, cigarettes, uncomplicated; F31.9 Bipolar disorder, unspecified; E66.01 Morbid (severe) obesity due to excess calories; G89.4 Chronic pain syndrome; J20.9 Acute bronchitis, unspecified; J44.1 Chronic obstructive pulmonary disease with (acute) exacerbation; R65.10 Systemic inflammatory response syndrome (SIRS) of non-infectious origin without acute organ dysfunction; J44.0 Chronic obstructive pulmonary disease with (acute) lower respiratory infection; Z68.39 Body mass index [BMI] 39.0-39.9, adult
CPT/HCPCS: 36415; 36600; 71020; 71275; 80048; 80053; 81001; 82803; 85025; 90732; 94640; 94760; 96374; 99406; J1100; J2920; J3475; J7030; Q9967

== ENCOUNTER 2017-01-13 18:57 | Inpatient (IN) | payer SELFPAY ==
[2017-01-13] MEDS ORDERED: XOPENEX IH ONE ×2 (19:06→21:27)
[2017-01-13] MEDS ORDERED: ATROVENT IH ONE (19:06)
--- NOTE | 2017-01-13 19:26 | Emergency Department Report ---
ED Shortness of Breath HPI - General Stated Complaint: COPD Time Seen by Provider: 01/13/17 19:06 Source: patient, EMS, old records reviewed Mode of arrival: Stretcher Limitations: Other (resp distress, bipap) - History of Present Illness Initial Comments: 56-year-old female with a past medical history COPD, asthma, and bipolar disorder presents to the hospital with shortness of breath. Patient was just discharged here yesterday January 12. Patient was admitted January 06 until January 12 for acute COPD and asthma exacerbation. Patient is visiting here from [place] and did not have her medications including her inhaler upon arrival to [place]. Patient was treated with nebs, steroids, antibiotics, and had a CT angiogram chest that was unremarkable. Patient was discharged on albuterol, Xanax, Augmentin, and prednisone taper. Patient was able to fill her medications after discharge. Patient complains of anterior chest and abdominal pain is moderate, worse with coughing and palpation. Patient required CPAP in route to the hospital and receives Solu-Medrol, magnesium, and albuterol in route with mild improvement. - Related Data Home Medications Medication Instructions Recorded Confirmed Last Taken Fluticasone/Salmeterol [Advair 1 puff IH BID 01/06/17 01/06/17 Unknown Diskus 250-50 mcg] Gabapentin [Neurontin] 400 mg PO QID 01/06/17 01/06/17 Unknown Memantine HCl 5 mg PO DAILY 01/06/17 01/06/17 Unknown Montelukast [Singulair] 10 mg PO QHS 01/06/17 01/06/17 Unknown Olanzapine [OLANZapine] 5 mg PO QHS 01/06/17 01/06/17 Unknown Omeprazole 40 mg PO DAILY 01/06/17 01/06/17 Unknown Zolpidem [Ambien] 10 mg PO QHS 01/06/17 01/06/17 Unknown Previous Rx's Medication Instructions Recorded Last Taken Type ALBUTEROL NEB's [Proventil 0.083% 90 mcg IH QID #30 nebu 01/09/17 Unknown Rx NEBS] ALPRAZolam [Xanax TAB] 2 mg PO BID PRN #10 tablet 01/09/17 Unknown Rx Amoxicillin/K Clav Tab [Augmentin 1 tab PO Q12HR #10 tab 01/09/17 Unknown Rx 875 mg] predniSONE [Deltasone] 10 mg PO .TAPER #48 tab 01/09/17 Unknown Rx Allergies Allergy/AdvReac Type Severity Reaction Status Date / Time No Known Allergies Allergy Unverified 01/05/17 20:49 ED Review of Systems ROS: Stated complaint: COPD Other details as noted in HPI Comment: All other systems reviewed and negative Other: Constitutional: No fevers chills Eyes: No eye pain visual changes ENT: No ear pain or throat pain Neck: Denies pain Respiratory: Denies cough wheezing shortness of breath Cardiovascular: Denies chest pain, palpitations, syncope GI: Denies abdominal pain, nausea, vomiting, diarrhea : Denies dysuria Musculoskeletal: Denies back pain Skin: Denies rash, lesions, erythema Neurologic: Denies headache, numbness, weakness Psychiatric: Denies suicidal ideation, hallucinations ED Past Medical Hx - Past Medical History Hx Heart Attack/AMI: No Hx Congestive Heart Failure: No Hx Diabetes: No Hx Pulmonary Embolism: No Hx Arthritis: Yes Hx Kidney Stones: No Hx Asthma: Yes Hx COPD: Yes Hx HIV: No Additional medical history: bi polar - Social History Smoking Status: Current Every Day Smoker - Medications Home Medications: Home Medications Medication Instructions Recorded Confirmed Last Taken Type Fluticasone/Salmeterol [Advair 1 puff IH BID 01/06/17 01/06/17 Unknown History Diskus 250-50 mcg] Gabapentin [Neurontin] 400 mg PO QID 01/06/17 01/06/17 Unknown History Memantine HCl 5 mg PO DAILY 01/06/17 01/06/17 Unknown History Montelukast [Singulair] 10 mg PO QHS 01/06/17 01/06/17 Unknown History Olanzapine [OLANZapine] 5 mg PO QHS 01/06/17 01/06/17 Unknown History Omeprazole 40 mg PO DAILY 01/06/17 01/06/17 Unknown History Zolpidem [Ambien] 10 mg PO QHS 01/06/17 01/06/17 Unknown History ALBUTEROL NEB's [Proventil 0.083% 90 mcg IH QID #30 nebu 01/09/17 Unknown Rx NEBS] ALPRAZolam [Xanax TAB] 2 mg PO BID PRN #10 tablet 01/09/17 Unknown Rx Amoxicillin/K Clav Tab [Augmentin 1 tab PO Q12HR #10 tab 01/09/17 Unknown Rx 875 mg] predniSONE [Deltasone] 10 mg PO .TAPER #48 tab 01/09/17 Unknown Rx ED Course Vital Signs 01/13/17 01/13/17 01/13/17 19:00 19:02 19:08 Temperature 98 F 97.8 F Pulse Rate 115 H 128 H 128 H Pulse Rate [ Bilateral Throughout] Respiratory 22 30 H 24 Rate Respiratory Rate [Bilateral Throughout] Blood Pressure 159/102 149/106 Blood Pressure 155/91 149/106 [Right] O2 Sat by Pulse 100 97 98 Oximetry 01/13/17 01/13/17 19:16 20:16 Temperature Pulse Rate Pulse Rate [ 127 H 124 H Bilateral Throughout] Respiratory Rate Respiratory 45 H 38 H Rate [Bilateral Throughout] Blood Pressure Blood Pressure [Right] O2 Sat by Pulse Oximetry - Reevaluation(s) Reevaluation #1: 01/13/17 21:27 Patient has persistent wheezing on BiPAP despite initial rounds of nebulizer treatments and IV meds received prior to arrival. ED Medical Decision Making - Lab Data Result diagrams: 01/13/17 20:26 01/13/17 20:26 Lab Results 01/13/17 01/13/17 01/13/17 Range/Units 20:26 20:26 20:26 WBC 27.5 H (4.5-11.0) K/mm3 RBC 5.42 H (3.65-5.03) M/mm3 Hgb 14.5 H (10.1-14.3) gm/dl Hct 45.4 H (30.3-42.9) % MCV 84 (79-97) fl MCH 27 L (28-32) pg MCHC 32 (30-34) % RDW 14.4 (13.2-15.2) % Plt Count 415 (140-440) K/mm3 Seg Neutrophils % Weight Count Operator Sodium 137 (137-145) mmol/L Potassium 4.6 (3.6-5.0) mmol/L Chloride 92.9 L (98-107) mmol/L Carbon Dioxide 26 (22-30) mmol/L Anion Gap 23 mmol/L BUN 24 H (7-17) mg/dL Creatinine 0.8 (0.7-1.2) mg/dL Estimated GFR > 60 ml/min BUN/Creatinine Ratio 30.00 % Glucose 321 H (65-100) mg/dL Calcium 8.4 (8.4-10.2) mg/dL NT-Pro-B Natriuret Pep 79.14 77.36 (0-900) pg/mL - EKG Data -: EKG Interpreted by Me (EMS EKG sinus tach [address]-T wave abnormalities) - EKG Data When compared to previous EKG there are: previous EKG unavailable - Radiology Data Radiology results: image reviewed (chest x-ray: No acute findings) - Medical Decision Making Patient has significant leukocytosis on laboratory findings likely secondary to steroids use. Patient also has hyperglycemia likely secondary to the same since patient denies a history of diabetes. ED patient received Xopenex, Atrovent, and regular insulin sliding scale dose ordered. Patient is currently on BiPAP support and will be admitted to the hospital for further treatment. Blood cultures have been ordered as well and a dose of azithromycin. - Differential Diagnosis pneumonia, bronchitis, CHF, asthma, COPD Critical care attestation.: If time is entered above; I have spent that time in minutes in the direct care of this critically ill patient, excluding procedure time. ED Disposition Clinical Impression: Acute bronchitis with asthma, Leukocytosis, Steroid-induced hyperglycemia Disposition: OP ADMITTED IP TO THIS HOSP Is pt being admited?: Yes Condition: Stable Time of Disposition: 21:16 (Dr Reddy/hosp)
[2017-01-13 20:49] LABS: Hematocrit 45.4 % (30.3-42.9); Hemoglobin 14.5 gm/dl (10.1-14.3); Mean Corpuscular HGB Conc 32 % (30-34); Mean Corpuscular Hemoglobin 27 pg (28-32); Mean Corpuscular Volume 84 fl (79-97); Platelet Count 415 K/mm3 (140-440); Red Blood Count 5.42 M/mm3 (3.65-5.03); Red Cell Distribution Width 14.4 % (13.2-15.2)
[2017-01-13 20:51] LABS: White Blood Count 27.5 K/mm3 (4.5-11.0)
[2017-01-13 21:08] LABS: Anion Gap 23 mmol/L; Blood Urea Nitrogen 24 mg/dL (7-17); Calcium 8.4 mg/dL (8.4-10.2); Carbon Dioxide 26 mmol/L (22-30); Chloride 92.9 mmol/L (98-107); Glucose 321 mg/dL (65-100); Potassium 4.6 mmol/L (3.6-5.0); Sodium 137 mmol/L (137-145)
[2017-01-13] MEDS ORDERED: ZITHROMAX 500 MG in NACL 0.9% 250ML 250 ML IV ONE (21:13)
[2017-01-13] MEDS ORDERED: ZOFRAN IV PRN (22:16)
[2017-01-13] MEDS ORDERED: DULCOLAX PR PRN (22:16)
[2017-01-13] MEDS ORDERED: MILK OF MAGNESIA PO PRN (22:16)
--- NOTE | 2017-01-13 22:19 | History and Physical Report ---
History of Present Illness Date of examination: 01/13/17 History of present illness: 56-year-old woman with a history of asthma, COPD, bipolar comes emergency room with complaints of shortness of breath, wheezing. Patient was discharged from the hospital on . her symptoms started yesterday, also complaining of chest tightness and a nonproductive cough. She has been using her nebulizer treatments at home without any improvement. Patient was placed on BiPAP in the emergency room Patient denies chest pain, palpitation, abdominal pain, hematochezia, dysuria, frequency, focal weakness, dysarthria, fever chills, polydipsia polyuria, hot or cold intolerance, easy bruisability, or rash or bleeding from mucosal membrane, rhinorrhea, epistaxis, earache, tinnitus, blurry vision, eye discharge , anxiety, depression. Other review of systems negative PAST SURGICAL HISTORY: Cholecystectomy SOCIAL HISTORY:Smoke 8 cigarettes a week, no alcohol or drugs FAMILY HISTORY: Asthma, hypertension Medications and Allergies Allergies Allergy/AdvReac Type Severity Reaction Status Date / Time No Known Allergies Allergy Unverified 01/05/17 20:49 Home Medications Medication Instructions Recorded Confirmed Last Taken Type Fluticasone/Salmeterol [Advair 1 puff IH BID 01/06/17 01/15/17 Unknown History Diskus 250-50 mcg] Gabapentin [Neurontin] 400 mg PO QID 01/06/17 01/15/17 Unknown History Memantine HCl 5 mg PO DAILY 01/06/17 01/15/17 Unknown History Montelukast [Singulair] 10 mg PO QHS 01/06/17 01/15/17 Unknown History Olanzapine [OLANZapine] 5 mg PO QHS 01/06/17 01/15/17 Unknown History Omeprazole 40 mg PO DAILY 01/06/17 01/15/17 Unknown History Zolpidem [Ambien] 10 mg PO QHS 01/06/17 01/15/17 Unknown History ALBUTEROL NEB's [Proventil 0.083% 90 mcg IH QID #30 nebu 01/09/17 01/15/17 Unknown Rx NEBS] ALPRAZolam [Xanax TAB] 2 mg PO BID PRN #10 tablet 01/09/17 01/15/17 Unknown Rx Amoxicillin/K Clav Tab [Augmentin 1 tab PO Q12HR #10 tab 01/09/17 01/15/17 Unknown Rx 875 mg] predniSONE [Deltasone] 10 mg PO .TAPER #48 tab 01/09/17 01/15/17 Unknown Rx Exam - Physical Exam Narrative exam: Gen. appearance: Patient lying in bed, no apparent distress HEENT: Normocephalic, atraumatic, pupils equally round and reactive to light, extraocular movement intact, and no sclericterus,. No JVD or thyromegaly or nodule,neck supple, no carotid bruit ,mucous membranes moist, no exudate or erythema Heart: S1, S2, regular rate and rhythm Lungs: Diffuse rhonchi and wheezes, decreased air entry bilaterally, breathing comfortable Abdomen: Positive bowel sounds, nontender, nondistended, no organomegaly Extremity: No edema, cyanosis, clubbing Skin: No rash, nodules, warm, dry Neuro: Oriented 3, cranial nerves II-12 intact, speech is fluent, motor and sensory intact - Constitutional Vitals: Temp Pulse Resp BP Pulse Ox 98 F 102 H 20 131/84 100 01/13/17 20:00 01/13/17 22:11 01/13/17 22:11 01/13/17 22:11 01/13/17 22:11 Results - Labs CBC & Chem 7: 01/16/17 04:41 01/16/17 04:41 Labs: Abnormal lab results 01/13/17 01/13/17 Range/Units 20:26 20:26 WBC 27.5 H (4.5-11.0) K/mm3 RBC 5.42 H (3.65-5.03) M/mm3 Hgb 14.5 H (10.1-14.3) gm/dl Hct 45.4 H (30.3-42.9) % MCH 27 L (28-32) pg Chloride 92.9 L (98-107) mmol/L BUN 24 H (7-17) mg/dL Glucose 321 H (65-100) mg/dL - Imaging and Cardiology EKG: image reviewed Chest x-ray: image reviewed Assessment and Plan Acute respiratory failure Acute asthma exacerbation with bronchitis Steroid-induced leukocytosis Bipolar Admit to medicine Start high-dose IV steroids, nebulizer treatment, continue BiPAP Start DVT prophylaxis, continue appropriate outpatient medication
[2017-01-13 22:21] LABS: Basophils % (Manual) 0 % (0.0-1.8); Blastocytes % (Manual) 0 %; Eosinophils % (Manual) 0 % (0.0-4.3); Total Cells Counted Percent 4.5
[2017-01-13 22:22] LABS: Anisocytosis 1+; Diff Status Complete; Platelet Estimate Consistent w Auto
[2017-01-14] MEDS: ZITHROMAX 500 MG in NACL 0.9% 250ML 250 ML IV SCH ×2 (00:30→10:18)
[2017-01-14] MEDS: DUONEB 0.5 MG-3 MG/3 ML SOLN IH SCH ×4 (01:39→19:57)
[2017-01-14] MEDS: TYLENOL PO PRN (04:22)
[2017-01-14 04:52] LABS: Hematocrit 41.4 % (30.3-42.9); Hemoglobin 13.2 gm/dl (10.1-14.3); Mean Corpuscular HGB Conc 32 % (30-34); Mean Corpuscular Hemoglobin 27 pg (28-32); Mean Corpuscular Volume 84 fl (79-97); Platelet Count 380 K/mm3 (140-440); Red Blood Count 4.95 M/mm3 (3.65-5.03); Red Cell Distribution Width 14.3 % (13.2-15.2)
[2017-01-14 04:59] LABS: Anion Gap 22 mmol/L; Blood Urea Nitrogen 21 mg/dL (7-17); Calcium 8.5 mg/dL (8.4-10.2); Carbon Dioxide 24 mmol/L (22-30); Glucose 260 mg/dL (65-100); Potassium 4.9 mmol/L (3.6-5.0); Sodium 135 mmol/L (137-145)
[2017-01-14 05:01] LABS: White Blood Count 22.5 K/mm3 (4.5-11.0)
[2017-01-14] MEDS ORDERED: D50W (25GM) IV PRN (07:45)
[2017-01-14] MEDS ORDERED: MAGNESIUM SULFATE IV ONE (07:45)
[2017-01-14] MEDS ORDERED: XANAX PO PRN (07:46)
--- NOTE | 2017-01-14 07:48 | Admit Criteria Form ---
Admission Criteria Documentation: RESPIRATORY FAILURE GRG Clinical Indications for Admission to Inpatient Care (Place 'X' for any and all applicable criteria): Hospital admission is needed for appropriate care of the patient because of acute respiratory failure or insufficiency as indicated by ANY ONE of the following(1)(2)(3)(4)(5)(6)(7)(8): [X ]I. Mechanical ventilation needed (acute invasive or noninvasive) [ ]II. Severe ventilation deficit as indicated by ANY ONE of the following (9) [ ]a) Respiratory acidosis (pH less than 7.32 and partial pressure of carbon dioxide greater than 40 mm Hg (5.3 kPa)) [ ]b) Partial pressure of carbon dioxide greater than 44 mm Hg (5.9 kPa ) (new) [ ]c) Airflow measurements less than 25% of predicted (eg, peak expiratory flow rate less than 100 L/minute) [ ]d) Forced vital capacity less than 15 mL/kg of ideal body weight, or 50% decrease in vital capacity from baseline [ ]III. Noncardiac pulmonary edema not resolving with rapid emergency treatment (8) [ ]IV. Severe respiratory distress as indicated by ANY ONE of the following: [ ]a) Severe tachypnea (respiratory rate greater than 30, greater than 45 for 6-month-old, greater than 60 for ) [ ]b) Severe hypoxemia (partial pressure of oxygen less than 50 mm Hg ( 6.7 kPa) on greater than 50% oxygen or partial pressure of oxygen to FIO2 ratio less than 200) [ ]c) Mental status deterioration from respiratory disease [ ]V. Airway obstruction or inadequate protection [A](10)(11) The original [employer] content created by [employer] has been revised. The portions of the content which have been revised are identified through the use of italic text or in bold, and [employer] has neither reviewed nor approved the modified material. All other unmodified content is copyright [employer]. Please see references footnoted in the original [employer] edition 2016 Admission Criteria Met: Yes
--- NOTE | 2017-01-14 07:51 | Progress Note ---
Assessment and Plan Assessment and plan: Patient is a pleasant 56-year-old female with history of COPD, asthma, bipolar disorder, who is visiting from [facility] reports that she unfortunately forgot her nebulizer and was out of her medication, was managed in the hospital for 5 days with cough persistent and non productive, symptoms improved to where she was speaking without shortness of breath, still with some mild wheeze and was subsequently discharged, returns today with exacerbation of symptoms and chest tightness. CTA done in the last admission did not demonstrate PE. pateint on return required BIPAP She denies any environmental allergies. She denies a prior history of surgery. She denies any prior intubation due to pulmonary condition. She denies any fever, nausea, vomiting, diarrhea. She denies any chest pain. She does note some cough but nonproductive. * Acute on chronic respiratory failure with hypoxia * Asthma exacerbation * Acute bacterial bronchitis * Chest Pain * Non productive Cough * Bipolar disorder * Lukocytosis- likely secondary to steroids * Elevated BG- no hx of DM. * Morbid obesity * Chronic pain and anxiety syndrome * Tobacco abuse * Plan * Continue with CCU stay * Pulmonary consult * Will give additional dose of magnesium * check A1C, start on sliding scale. likely due to steroids * Continue abx * continue IV Solu-Medrol, c * CTA negative for PE * Recommended warm humidification at home. * Start Robitussin with codeine * continue on nebulizer treatment, * Nicotine patch * Extensive conversation and counseling on tobacco cessation patient verbalized understanding * Peak flow meter and instructed on how to use * DVT and GI prophylaxis * Weight loss counseling provided to the patient due to patient verbalized understanding 35 mins critical care time History Interval history: Patient seen and examined, still with shortness of breath and wheezing but completing sentences, no nausea, vomiting or diarrhea. Hospitalist Physical - Physical exam Narrative exam: VITAL SIGNS: Reviewed. GENERAL: The patient appeared well nourished and normally developed, horase voice.obese. Vital signs as documented. HEAD: No signs of head trauma. EYES: Pupils are equal. Extraocular motions intact. EARS: Hearing grossly intact. MOUTH: Oropharynx is normal. NECK: No adenopathy, no JVD. CHEST: Chest with bilateral expiratory wheezing. No accessory muscle use. CARDIAC: Regular rate and rhythm. S1 and S2, without murmurs, gallops, or rubs. VASCULAR: No Edema. Peripheral pulses normal and equal in all extremities. ABDOMEN: Soft, without detectable tenderness. No sign of distention. No rebound or guarding, and no masses palpated. Bowel Sounds normal. MUSCULOSKELETAL: Good range of motion of all major joints. Extremities without clubbing, cyanosis or edema. NEUROLOGIC EXAM: Alert and oriented x 3. No focal sensory or strength deficits. Speech normal. Follows commands. PSYCHIATRIC: Mood normal. SKIN: No rash or lesions. - Constitutional Vitals: Temp Pulse Resp BP Pulse Ox 98 F 82 21 114/70 99 01/14/17 05:39 01/14/17 07:32 01/14/17 07:32 01/14/17 07:32 01/14/17 07:32 Results - Labs CBC & Chem 7: 01/14/17 04:05 01/14/17 04:05 Labs: Laboratory Last Values WBC 22.5 K/mm3 (4.5-11.0) H 01/14/17 04:05 RBC 4.95 M/mm3 (3.65-5.03) 01/14/17 04:05 Hgb 13.2 gm/dl (10.1-14.3) 01/14/17 04:05 Hct 41.4 % (30.3-42.9) 01/14/17 04:05 MCV 84 fl (79-97) 01/14/17 04:05 MCH 27 pg (28-32) L 01/14/17 04:05 MCHC 32 % (30-34) 01/14/17 04:05 RDW 14.3 % (13.2-15.2) 01/14/17 04:05 Plt Count 380 K/mm3 (140-440) 01/14/17 04:05 Add Manual Diff Complete 01/13/17 20:26 Total Counted 200 01/13/17 20:26 Seg Neutrophils % Rough Patcher 01/14/17 04:05 Seg Neuts % (Manual) 91.5 % (40.0-70.0) H 01/13/17 20:26 Band Neutrophils % 0.5 % 01/13/17 20:26 Lymphocytes % (Manual) 3.5 % (13.4-35.0) L 01/13/17 20:26 Reactive Lymphs % (Man) 1.0 % 01/13/17 20:26 Monocytes % (Manual) 3.5 % (0.0-7.3) 01/13/17 20:26 Eosinophils % (Manual) 0 % (0.0-4.3) 01/13/17 20:26 Basophils % (Manual) 0 % (0.0-1.8) 01/13/17 20:26 Metamyelocytes % 0 % 01/13/17 20:26 Myelocytes % 0 % 01/13/17 20:26 Promyelocytes % 0 % 01/13/17 20:26 Blast Cells % 0 % 01/13/17 20:26 Nucleated RBC % Not Reportable 01/13/17 20:26 Seg Neutrophils # Man 25.2 K/mm3 (1.8-7.7) H 01/13/17 20:26 Band Neutrophils # 0.1 K/mm3 01/13/17 20:26 Lymphocytes # (Manual) 1.0 K/mm3 (1.2-5.4) L 01/13/17 20:26 Abs React Lymphs (Man) 0.3 K/mm3 01/13/17 20:26 Monocytes # (Manual) 1.0 K/mm3 (0.0-0.8) H 01/13/17 20:26 Eosinophils # (Manual) 0.0 K/mm3 (0.0-0.4) 01/13/17 20:26 Basophils # (Manual) 0.0 K/mm3 (0.0-0.1) 01/13/17 20:26 Metamyelocytes # 0.0 K/mm3 01/13/17 20:26 Myelocytes # 0.0 K/mm3 01/13/17 20:26 Promyelocytes # 0.0 K/mm3 01/13/17 20:26 Blast Cells # 0.0 K/mm3 01/13/17 20:26 WBC Morphology Not Reportable 01/13/17 20:26 Hypersegmented Neuts Not Reportable 01/13/17 20:26 Hyposegmented Neuts Not Reportable 01/13/17 20:26 Hypogranular Neuts Not Reportable 01/13/17 20:26 Smudge Cells Not Reportable 01/13/17 20:26 Toxic Granulation Not Reportable 01/13/17 20:26 Toxic Vacuolation Not Reportable 01/13/17 20:26 Dohle Bodies Not Reportable 01/13/17 20:26 Pelger-Huet Anomaly Not Reportable 01/13/17 20:26 Pedro Rods Not Reportable 01/13/17 20:26 Platelet Estimate Consistent w auto 01/13/17 20:26 Clumped Platelets Not Reportable 01/13/17 20:26 Plt Clumps, EDTA Not Reportable 01/13/17 20:26 Large Platelets Not Reportable 01/13/17 20:26 Giant Platelets Not Reportable 01/13/17 20:26 Platelet Satelliting Not Reportable 01/13/17 20:26 Plt Morphology Comment Not Reportable 01/13/17 20:26 RBC Morphology Not Reportable 01/13/17 20:26 Dimorphic RBCs Not Reportable 01/13/17 20:26 Polychromasia Not Reportable 01/13/17 20:26 Hypochromasia Not Reportable 01/13/17 20:26 Poikilocytosis Not Reportable 01/13/17 20:26 Anisocytosis 1+ 01/13/17 20:26 Microcytosis Not Reportable 01/13/17 20:26 Macrocytosis Not Reportable 01/13/17 20:26 Spherocytes Not Reportable 01/13/17 20:26 Pappenheimer Bodies Not Reportable 01/13/17 20:26 Sickle Cells Not Reportable 01/13/17 20:26 Target Cells Not Reportable 01/13/17 20:26 Tear Drop Cells Not Reportable 01/13/17 20:26 Ovalocytes Not Reportable 01/13/17 20:26 Helmet Cells Not Reportable 01/13/17 20:26 [place] Bodies Not Reportable 01/13/17 20:26 [place] Rings Not Reportable 01/13/17 20:26 [place] Cells Not Reportable 01/13/17 20:26 Bite Cells Not Reportable 01/13/17 20:26 Crenated Cell Not Reportable 01/13/17 20:26 Elliptocytes Not Reportable 01/13/17 20:26 Acanthocytes (Spur) Not Reportable 01/13/17 20:26 Rouleaux Not Reportable 01/13/17 20:26 Hemoglobin C Crystals Not Reportable 01/13/17 20:26 Schistocytes Not Reportable 01/13/17 20:26 Malaria parasites Not Reportable 01/13/17 20:26 [place] Bodies Not Reportable 01/13/17 20:26 Hem Pathologist Commnt No 01/13/17 20:26 Sodium 135 mmol/L (137-145) L 01/14/17 04:05 Potassium 4.9 mmol/L (3.6-5.0) 01/14/17 04:05 Chloride 94.0 mmol/L (98-107) L 01/14/17 04:05 Carbon Dioxide 24 mmol/L (22-30) 01/14/17 04:05 Anion Gap 22 mmol/L 01/14/17 04:05 BUN 21 mg/dL (7-17) H 01/14/17 04:05 Creatinine 0.7 mg/dL (0.7-1.2) 01/14/17 04:05 Estimated GFR > 60 ml/min 01/14/17 04:05 BUN/Creatinine Ratio 30.00 % 01/14/17 04:05 Glucose 260 mg/dL (65-100) H 01/14/17 04:05 Calcium 8.5 mg/dL (8.4-10.2) 01/14/17 04:05 NT-Pro-B Natriuret Pep 79.14 pg/mL (0-900) 01/13/17 20:26
[2017-01-14] MEDS ORDERED: MAGNESIUM SULFATE 1 GM in NACL 0.9% 50 ML IV ONE (08:00)
[2017-01-14] MEDS ORDERED: DUONEB 0.5 MG-3 MG/3 ML SOLN IH ONE (08:02)
[2017-01-14 08:20] LABS: Basophils % (Manual) 0 % (0.0-1.8); Blastocytes % (Manual) 0 %; Eosinophils % (Manual) 0 % (0.0-4.3)
[2017-01-14 08:21] LABS: Anisocytosis 1+
[2017-01-14 08:22] LABS: Diff Status Complete
--- NOTE | 2017-01-14 09:49 | XRay Report ---
PORTABLE CHEST INDICATION: Shortness of breath. COMPARISON: 01/05/2017 FINDINGS: Portable, frontal chest radiograph again demonstrates normal cardiomediastinal silhouette. Slight peribronchial thickening centrally with slight poorer inspiration and crowded lung markings. Exaggerated pericardial fat pad, greatest about the apex. No focal consolidation, pleural effusions or CHF. Stable bones. EKG leads and few extrinsic artifacts. CONCLUSION: Slight peribronchial thickening. Please correlate. Thank you for the opportunity to participate in this patient's care.
[2017-01-14] MEDS: NAMENDA XR PO SCH (10:16)
[2017-01-14] MEDS: LOVENOX SUB-Q SCH (10:17)
[2017-01-14] MEDS: NEURONTIN PO SCH ×4 (10:17→22:34)
[2017-01-14] MEDS: NOVOLOG SUB-Q SCH ×3 (12:41→22:50)
[2017-01-14 14:18] LABS: Creatine Kinase MB 1.3 ng/mL (0.0-4.0)
[2017-01-14 14:20] LABS: Creatine Kinase 121 units/L (30-135)
--- NOTE | 2017-01-14 14:30 | Consultation ---
History of Present Illness Consult date: 01/14/17 Requesting physician: BALWINDER PAULSON Reason for consult: asthma, COPD History of present illness: 56 yo recently discharged on 01/12/17, re-presented 01/13/17 with worsening SOB, wheezing, cough w/o sputum. No fevers, chills, chest pain, hemoptysis. Admitted to telemetry overflow on VM. Feeling a bit better this AM. Active Medications Acetaminophen (Tylenol) 650 mg PO Q4H PRN PRN Reason: Pain MILD(1-3)/Fever >100.5/HIGH Last Admin: 01/14/17 04:22 Dose: 650 mg Albuterol/Ipratropium (Duoneb 0.5 Mg-3 Mg/3 Ml Soln) 1 ampul IH Q6HRT [facility] Last Admin: 01/14/17 08:32 Dose: 1 ampul Alprazolam (Xanax) 2 mg PO BID PRN PRN Reason: Agitation Arformoterol Tartrate (Brovana Nebu) 15 mcg IH Q12HRT [facility] Bisacodyl (Dulcolax) 10 mg VA QDAY PRN PRN Reason: Constipation unrelieved by MOM Budesonide (Pulmicort) 0.5 mg IH Q12HRT [facility] Dextrose (D50w (25gm)) 50 ml IV PRN PRN PRN Reason: Hypoglycemia Enoxaparin Sodium (Lovenox) 40 mg SUB-Q QDAY [facility] Last Admin: 01/14/17 10:17 Dose: 40 mg Gabapentin (Neurontin) 400 mg PO QID [facility] Last Admin: 01/14/17 10:17 Dose: 400 mg Azithromycin 500 mg/ Sodium (Chloride) 250 mls @ 250 mls/hr IV DAILY [facility] Last Admin: 01/14/17 10:18 Dose: 250 mls/hr Insulin Aspart (Novolog) 0 units SUB-Q ACHS NICA PRN Reason: Protocol Last Admin: 01/14/17 12:41 Dose: 3 units Magnesium Hydroxide (Milk Of Magnesia) 30 ml PO Q4H PRN PRN Reason: Constipation Memantine (Namenda Xr) 7 mg PO QDAY [facility] Last Admin: 01/14/17 10:16 Dose: 7 mg Methylprednisolone Sodium Succinate (Solu-Medrol) 80 mg IV Q6HR [facility] Last Admin: 01/14/17 12:42 Dose: 80 mg Montelukast Sodium (Singulair) 10 mg PO QHS NICA Olanzapine (Zyprexa) 5 mg PO QHS NICA Ondansetron HCl (Zofran) 4 mg IV Q8H PRN PRN Reason: N/V unrelieved by Bridget Zolpidem Tartrate (Ambien) 10 mg PO QHS NICA Past History Past Medical History: other (asthma, COPD, GERD) Social history: lives with family, smoking, full code. denies: alcohol abuse, prescription drug abuse, IV drug use Family history: other (No pulm issues) Medications and Allergies Allergies Allergy/AdvReac Type Severity Reaction Status Date / Time No Known Allergies Allergy Unverified 01/05/17 20:49 Home Medications Medication Instructions Recorded Confirmed Last Taken Type Fluticasone/Salmeterol [Advair 1 puff IH BID 01/06/17 01/06/17 Unknown History Diskus 250-50 mcg] Gabapentin [Neurontin] 400 mg PO QID 01/06/17 01/06/17 Unknown History Memantine HCl 5 mg PO DAILY 01/06/17 01/06/17 Unknown History Montelukast [Singulair] 10 mg PO QHS 01/06/17 01/06/17 Unknown History Olanzapine [OLANZapine] 5 mg PO QHS 01/06/17 01/06/17 Unknown History Omeprazole 40 mg PO DAILY 01/06/17 01/06/17 Unknown History Zolpidem [Ambien] 10 mg PO QHS 01/06/17 01/06/17 Unknown History ALBUTEROL NEB's [Proventil 0.083% 90 mcg IH QID #30 nebu 01/09/17 Unknown Rx NEBS] ALPRAZolam [Xanax TAB] 2 mg PO BID PRN #10 tablet 01/09/17 Unknown Rx Amoxicillin/K Clav Tab [Augmentin 1 tab PO Q12HR #10 tab 01/09/17 Unknown Rx 875 mg] predniSONE [Deltasone] 10 mg PO .TAPER #48 tab 01/09/17 Unknown Rx Active Meds: Active Medications Acetaminophen (Tylenol) 650 mg PO Q4H PRN PRN Reason: Pain MILD(1-3)/Fever >100.5/HIGH Last Admin: 01/14/17 04:22 Dose: 650 mg Albuterol/Ipratropium (Duoneb 0.5 Mg-3 Mg/3 Ml Soln) 1 ampul IH Q6HRT [facility] Last Admin: 01/14/17 08:32 Dose: 1 ampul Alprazolam (Xanax) 2 mg PO BID PRN PRN Reason: Agitation Arformoterol Tartrate (Brovana Nebu) 15 mcg IH Q12HRT [facility] Bisacodyl (Dulcolax) 10 mg VA QDAY PRN PRN Reason: Constipation unrelieved by MOM Budesonide (Pulmicort) 0.5 mg IH Q12HRT [facility] Dextrose (D50w (25gm)) 50 ml IV PRN PRN PRN Reason: Hypoglycemia Enoxaparin Sodium (Lovenox) 40 mg SUB-Q QDAY [facility] Last Admin: 01/14/17 10:17 Dose: 40 mg Gabapentin (Neurontin) 400 mg PO QID [facility] Last Admin: 01/14/17 10:17 Dose: 400 mg Azithromycin 500 mg/ Sodium (Chloride) 250 mls @ 250 mls/hr IV DAILY [facility] Last Admin: 01/14/17 10:18 Dose: 250 mls/hr Insulin Aspart (Novolog) 0 units SUB-Q ACHS [facility] PRN Reason: Protocol Last Admin: 01/14/17 12:41 Dose: 3 units Magnesium Hydroxide (Milk Of Magnesia) 30 ml PO Q4H PRN PRN Reason: Constipation Memantine (Namenda Xr) 7 mg PO QDAY [facility] Last Admin: 01/14/17 10:16 Dose: 7 mg Methylprednisolone Sodium Succinate (Solu-Medrol) 80 mg IV Q6HR [facility] Last Admin: 01/14/17 12:42 Dose: 80 mg Montelukast Sodium (Singulair) 10 mg PO QHS [facility] Olanzapine (Zyprexa) 5 mg PO QHS [facility] Ondansetron HCl (Zofran) 4 mg IV Q8H PRN PRN Reason: N/V unrelieved by Reglan Zolpidem Tartrate (Ambien) 10 mg PO QHS [facility] Review of Systems All systems: negative Physical Examination Vital signs: Vital Signs Temp Pulse Resp BP Pulse Ox 98 F 115 H 22 155/91 100 01/13/17 19:00 01/13/17 19:00 01/13/17 19:00 01/13/17 19:00 01/13/17 19:00 Vital Signs - 24 hr 01/13/17 01/13/17 01/13/17 19:00 19:02 19:08 Temperature 98 F 97.8 F Pulse Rate 115 H 128 H 128 H Pulse Rate [ Bilateral Throughout] Respiratory 22 30 H 24 Rate Respiratory Rate [Bilateral Throughout] Blood Pressure 159/102 149/106 Blood Pressure 155/91 149/106 [Right] O2 Sat by Pulse 100 97 98 Oximetry 01/13/17 01/13/17 01/13/17 19:16 20:00 20:16 Temperature 98 F Pulse Rate 115 H Pulse Rate [ 127 H 124 H Bilateral Throughout] Respiratory 22 Rate Respiratory 45 H 38 H Rate [Bilateral Throughout] Blood Pressure Blood Pressure 154/93 [Right] O2 Sat by Pulse 100 Oximetry 01/13/17 01/13/17 01/13/17 21:49 22:05 22:11 Temperature Pulse Rate 102 H Pulse Rate [ 106 H Bilateral Throughout] Respiratory 16 20 Rate Respiratory 27 H Rate [Bilateral Throughout] Blood Pressure Blood Pressure 131/84 [Right] O2 Sat by Pulse 100 100 Oximetry 01/13/17 01/13/17 01/14/17 22:20 23:00 01:40 Temperature Pulse Rate 109 H 90 Pulse Rate [ 108 H 104 H Bilateral Throughout] Respiratory 19 20 Rate Respiratory 27 H 18 Rate [Bilateral Throughout] Blood Pressure Blood Pressure 143/90 [Right] O2 Sat by Pulse 98 99 Oximetry 01/14/17 01/14/17 01/14/17 02:08 03:00 03:32 Temperature Pulse Rate 92 H 88 Pulse Rate [ 106 H Bilateral Throughout] Respiratory 20 19 Rate Respiratory 18 Rate [Bilateral Throughout] Blood Pressure Blood Pressure 114/70 [Right] O2 Sat by Pulse 98 98 Oximetry 01/14/17 01/14/17 01/14/17 03:40 03:50 04:00 Temperature Pulse Rate 86 86 87 Pulse Rate [ Bilateral Throughout] Respiratory 20 19 19 Rate Respiratory Rate [Bilateral Throughout] Blood Pressure 114/70 114/70 114/70 Blood Pressure [Right] O2 Sat by Pulse 99 99 99 Oximetry 01/14/17 01/14/17 01/14/17 04:10 04:20 04:30 Temperature Pulse Rate 90 87 83 Pulse Rate [ Bilateral Throughout] Respiratory 19 18 19 Rate Respiratory Rate [Bilateral Throughout] Blood Pressure 114/70 114/70 114/70 Blood Pressure [Right] O2 Sat by Pulse 98 98 99 Oximetry 01/14/17 01/14/17 01/14/17 04:40 04:50 05:00 Temperature Pulse Rate 85 87 91 H Pulse Rate [ Bilateral Throughout] Respiratory 22 18 18 Rate Respiratory Rate [Bilateral Throughout] Blood Pressure 114/70 114/70 114/70 Blood Pressure [Right] O2 Sat by Pulse 98 99 98 Oximetry 01/14/17 01/14/17 01/14/17 05:10 05:20 05:30 Temperature Pulse Rate 99 H 82 85 Pulse Rate [ Bilateral Throughout] Respiratory 18 21 18 Rate Respiratory Rate [Bilateral Throughout] Blood Pressure 114/70 114/70 114/70 Blood Pressure [Right] O2 Sat by Pulse 98 99 98 Oximetry 01/14/17 01/14/17 01/14/17 05:39 05:40 05:50 Temperature 98 F Pulse Rate 86 89 83 Pulse Rate [ Bilateral Throughout] Respiratory 18 22 20 Rate Respiratory Rate [Bilateral Throughout] Blood Pressure 114/70 114/70 Blood Pressure 126/78 [Right] O2 Sat by Pulse 100 99 98 Oximetry 01/14/17 01/14/17 01/14/17 06:00 06:10 06:20 Temperature Pulse Rate 79 80 82 Pulse Rate [ Bilateral Throughout] Respiratory 21 18 18 Rate Respiratory Rate [Bilateral Throughout] Blood Pressure 114/70 114/70 114/70 Blood Pressure [Right] O2 Sat by Pulse 98 99 98 Oximetry 01/14/17 01/14/17 01/14/17 06:30 06:40 06:50 Temperature Pulse Rate 82 82 95 H Pulse Rate [ Bilateral Throughout] Respiratory 21 20 15 Rate Respiratory Rate [Bilateral Throughout] Blood Pressure 114/70 114/70 114/70 Blood Pressure [Right] O2 Sat by Pulse 99 98 98 Oximetry 01/14/17 01/14/17 01/14/17 07:00 07:10 07:20 Temperature Pulse Rate 85 82 94 H Pulse Rate [ Bilateral Throughout] Respiratory 18 18 18 Rate Respiratory Rate [Bilateral Throughout] Blood Pressure 114/70 114/70 114/70 Blood Pressure [Right] O2 Sat by Pulse 99 99 99 Oximetry 01/14/17 01/14/17 01/14/17 07:32 07:40 07:50 Temperature Pulse Rate 82 Pulse Rate [ Bilateral Throughout] Respiratory 21 Rate Respiratory Rate [Bilateral Throughout] Blood Pressure 114/70 114/70 114/70 Blood Pressure [Right] O2 Sat by Pulse 99 99 99 Oximetry 01/14/17 01/14/17 01/14/17 08:00 08:10 08:20 Temperature Pulse Rate Pulse Rate [ Bilateral Throughout] Respiratory Rate Respiratory Rate [Bilateral Throughout] Blood Pressure 114/70 114/70 114/70 Blood Pressure [Right] O2 Sat by Pulse 98 98 98 Oximetry 01/14/17 01/14/17 01/14/17 08:30 08:32 08:52 Temperature Pulse Rate Pulse Rate [ 92 H Bilateral Throughout] Respiratory Rate Respiratory 20 Rate [Bilateral Throughout] Blood Pressure 114/70 Blood Pressure [Right] O2 Sat by Pulse 98 98 Oximetry 01/14/17 01/14/17 01/14/17 09:00 09:10 09:20 Temperature 97.7 F Pulse Rate 92 H 89 87 Pulse Rate [ Bilateral Throughout] Respiratory 17 21 20 Rate Respiratory Rate [Bilateral Throughout] Blood Pressure 124/67 124/67 Blood Pressure [Right] O2 Sat by Pulse 98 98 Oximetry 01/14/17 01/14/17 01/14/17 09:30 09:40 09:50 Temperature Pulse Rate 86 83 108 H Pulse Rate [ Bilateral Throughout] Respiratory 19 23 19 Rate Respiratory Rate [Bilateral Throughout] Blood Pressure 124/67 124/67 124/67 Blood Pressure [Right] O2 Sat by Pulse 98 98 99 Oximetry 01/14/17 01/14/17 01/14/17 10:00 10:10 10:20 Temperature Pulse Rate 86 94 H 85 Pulse Rate [ Bilateral Throughout] Respiratory 18 22 17 Rate Respiratory Rate [Bilateral Throughout] Blood Pressure 124/67 124/67 124/67 Blood Pressure [Right] O2 Sat by Pulse 99 98 98 Oximetry 01/14/17 01/14/17 01/14/17 10:30 10:40 10:50 Temperature Pulse Rate 91 H 84 82 Pulse Rate [ Bilateral Throughout] Respiratory 18 21 19 Rate Respiratory Rate [Bilateral Throughout] Blood Pressure 124/67 124/67 124/67 Blood Pressure [Right] O2 Sat by Pulse 98 99 97 Oximetry 01/14/17 12:00 Temperature 98.2 F Pulse Rate Pulse Rate [ Bilateral Throughout] Respiratory Rate Respiratory Rate [Bilateral Throughout] Blood Pressure Blood Pressure [Right] O2 Sat by Pulse Oximetry General appearance: no acute distress, alert Eyes: non-icteric ENT: oropharynx moist Neck: supple Effort: normal Ascultation: Bilateral: wheezes Cardiovascular: regular rate and rhythm (no mrg) Gastrointestinal: normoactive bowel sounds, soft, non-tender, non-distended Integumentary: normal Extremities: no cyanosis, no edema, pink and warm normal mental status, non-focal exam, pupils equal and round, CN II-XII normal mood appropriate, affect normal Results - Laboratory Findings CBC and BMP: 01/14/17 04:05 01/14/17 04:05 Abnormal lab findings: Abnormal Labs 01/14/17 01/14/17 01/14/17 04:05 04:05 04:05 WBC 22.5 H MCH 27 L Seg Neuts % (Manual) 90.0 H Lymphocytes % (Manual) 6.0 L Seg Neutrophils # Man 20.3 H Sodium 135 L Chloride 94.0 L BUN 21 H Glucose 260 H Hemoglobin A1c 6.2 H - Diagnostic Findings Chest x-ray: report reviewed, image reviewed (no significant change) Assessment and Plan Imp: 1. Acute bronchitis 2. COPD exac. 3. Asthma exac. 4. Acute respiratory failure, hypoxia 5. Morbid obesity 6. Chronic nicotine dependence, cigs 7. Leukocytosis 2/2 steroids Rec: 1. Agree w/ current management but can taper the Solumedrol dose and add Pulmicort/Brovana 2. Wean O2 to keep sats 88-94% 3. Cont. to avoid smoking 4. Transfer to floor when bed available 5. DVT PPx 6. Outpatient PFTs Plan of care reviewed w/ patient, she understands/agrees Thanks for the consult.
[2017-01-14] MEDS: PULMICORT IH SCH (19:57)
[2017-01-14] MEDS: BROVANA NEBU IH SCH (19:57)
[2017-01-14 20:42] LABS: Creatine Kinase 94 units/L (30-135); Creatine Kinase MB 1.1 ng/mL (0.0-4.0)
[2017-01-14] MEDS: SINGULAIR PO SCH (22:33)
[2017-01-14] MEDS: AMBIEN PO SCH (22:35)
[2017-01-15] MEDS: DUONEB 0.5 MG-3 MG/3 ML SOLN IH SCH ×7 (00:06→20:05)
[2017-01-15] MEDS: TYLENOL PO PRN (00:29)
[2017-01-15 07:02] LABS: Anion Gap 15 mmol/L; BUN/Creatinine Ratio 28.33; Blood Urea Nitrogen 17 mg/dL (7-17); Calcium 8.5 mg/dL (8.4-10.2); Carbon Dioxide 28 mmol/L (22-30); Chloride 94.5 mmol/L (98-107); Glucose 257 mg/dL (65-100); Potassium 4.9 mmol/L (3.6-5.0); Sodium 133 mmol/L (137-145)
[2017-01-15 07:11] LABS: Hematocrit 39.6 % (30.3-42.9); Hemoglobin 12.4 gm/dl (10.1-14.3); Mean Corpuscular HGB Conc 31 % (30-34); Mean Corpuscular Hemoglobin 26 pg (28-32); Mean Corpuscular Volume 84 fl (79-97); Platelet Count 339 K/mm3 (140-440); Red Blood Count 4.73 M/mm3 (3.65-5.03); Red Cell Distribution Width 14.4 % (13.2-15.2)
[2017-01-15 07:12] LABS: White Blood Count 26.1 K/mm3 (4.5-11.0)
[2017-01-15] MEDS: PULMICORT IH SCH ×2 (07:54→19:49)
[2017-01-15] MEDS: BROVANA NEBU IH SCH ×2 (07:54→19:49)
[2017-01-15] MEDS: NAMENDA XR PO SCH (09:50)
[2017-01-15] MEDS: LOVENOX SUB-Q SCH (09:51)
[2017-01-15] MEDS: NEURONTIN PO SCH ×4 (09:51→22:07)
[2017-01-15] MEDS: NOVOLOG SUB-Q SCH ×4 (09:52→22:07)
[2017-01-15] MEDS: ZITHROMAX 500 MG in NACL 0.9% 250ML 250 ML IV SCH (09:52)
[2017-01-15] MEDS: PERCOCET 5/325 PO PRN ×2 (11:30→18:51)
--- NOTE | 2017-01-15 13:05 | Progress Note ---
Assessment and Plan Assessment and plan: Patient is a pleasant 56-year-old female with history of COPD, asthma, bipolar disorder, who is visiting from [facility] reports that she unfortunately forgot her nebulizer and was out of her medication, was managed in the hospital for 5 days with cough persistent and non productive, symptoms improved to where she was speaking without shortness of breath, still with some mild wheeze and was subsequently discharged, returns today with exacerbation of symptoms and chest tightness. CTA done in the last admission did not demonstrate PE. pateint on return required BIPAP She denies any environmental allergies. She denies a prior history of surgery. She denies any prior intubation due to pulmonary condition. She denies any fever, nausea, vomiting, diarrhea. She denies any chest pain. She does note some cough but nonproductive. * Acute on chronic respiratory failure with hypoxia * Asthma exacerbation * Acute bacterial bronchitis * Chest Pain * Non productive Cough * Bipolar disorder * Metabolic syndrome A1c 6.2 * Lukocytosis- likely secondary to steroids * Elevated BG- no hx of DM. * Morbid obesity * Chronic osteoarthritis * Chronic pain and anxiety syndrome * Tobacco abuse Plan * Continue supportive care, pulmonary noted. Continue tapering steroids. Slow taper ideal for this patient. Continue sliding scale A1c and metabolic syndrome discussed with the patient in detail. * Continue abx * continue IV Solu-Medrol, taper based on clinical improvement * CTA negative for PE * Recommended warm humidification at home. * Start Robitussin with codeine * continue on nebulizer treatment, * Recent pain meds * Nicotine patch * Extensive conversation and counseling on tobacco cessation patient verbalized understanding * Peak flow meter and instructed on how to use * DVT and GI prophylaxis * Weight loss counseling provided to the patient due to patient verbalized understanding History Interval history: Patient seen and examined, transferred to the medical floor stable, some shortness of breath otherwise improved and still with wheezing. Complaints of generalized body pain at the joints which is chronic for her. No other adverse events reported by nursing staff no fever. Hospitalist Physical - Physical exam Narrative exam: VITAL SIGNS: Reviewed. GENERAL: The patient appeared well nourished and normally developed, horase voice.obese. Vital signs as documented. HEAD: No signs of head trauma. EYES: Pupils are equal. Extraocular motions intact. EARS: Hearing grossly intact. MOUTH: Oropharynx is normal. NECK: No adenopathy, no JVD. CHEST: Chest with bilateral expiratory wheezing. No accessory muscle use. CARDIAC: Regular rate and rhythm. S1 and S2, without murmurs, gallops, or rubs. VASCULAR: No Edema. Peripheral pulses normal and equal in all extremities. ABDOMEN: Soft, without detectable tenderness. No sign of distention. No rebound or guarding, and no masses palpated. Bowel Sounds normal. MUSCULOSKELETAL: Good range of motion of all major joints. Extremities without clubbing, cyanosis or edema. NEUROLOGIC EXAM: Alert and oriented x 3. No focal sensory or strength deficits. Speech normal. Follows commands. PSYCHIATRIC: Mood normal. SKIN: No rash or lesions. - Constitutional Vitals: Temp Pulse Resp BP Pulse Ox 97.8 F 88 20 99/67 95 01/15/17 07:00 01/15/17 08:05 01/15/17 08:05 01/15/17 07:00 01/15/17 07:54 Results - Labs CBC & Chem 7: 01/15/17 06:32 01/15/17 06:32 Labs: Laboratory Last Values WBC 26.1 K/mm3 (4.5-11.0) H 01/15/17 06:32 RBC 4.73 M/mm3 (3.65-5.03) 01/15/17 06:32 Hgb 12.4 gm/dl (10.1-14.3) 01/15/17 06:32 Hct 39.6 % (30.3-42.9) 01/15/17 06:32 MCV 84 fl (79-97) 01/15/17 06:32 MCH 26 pg (28-32) L 01/15/17 06:32 MCHC 31 % (30-34) 01/15/17 06:32 RDW 14.4 % (13.2-15.2) 01/15/17 06:32 Plt Count 339 K/mm3 (140-440) 01/15/17 06:32 Add Manual Diff Complete 01/14/17 04:05 Total Counted 100 01/14/17 04:05 Seg Neutrophils % Locomotive Switch Operator 01/14/17 04:05 Seg Neuts % (Manual) 90.0 % (40.0-70.0) H 01/14/17 04:05 Band Neutrophils % 2.0 % 01/14/17 04:05 Lymphocytes % (Manual) 6.0 % (13.4-35.0) L 01/14/17 04:05 Reactive Lymphs % (Man) 0 % 01/14/17 04:05 Monocytes % (Manual) 2.0 % (0.0-7.3) 01/14/17 04:05 Eosinophils % (Manual) 0 % (0.0-4.3) 01/14/17 04:05 Basophils % (Manual) 0 % (0.0-1.8) 01/14/17 04:05 Metamyelocytes % 0 % 01/14/17 04:05 Myelocytes % 0 % 01/14/17 04:05 Promyelocytes % 0 % 01/14/17 04:05 Blast Cells % 0 % 01/14/17 04:05 Nucleated RBC % Not Reportable 01/14/17 04:05 Seg Neutrophils # Man 20.3 K/mm3 (1.8-7.7) H 01/14/17 04:05 Band Neutrophils # 0.5 K/mm3 01/14/17 04:05 Lymphocytes # (Manual) 1.4 K/mm3 (1.2-5.4) 01/14/17 04:05 Abs React Lymphs (Man) 0.0 K/mm3 01/14/17 04:05 Monocytes # (Manual) 0.5 K/mm3 (0.0-0.8) 01/14/17 04:05 Eosinophils # (Manual) 0.0 K/mm3 (0.0-0.4) 01/14/17 04:05 Basophils # (Manual) 0.0 K/mm3 (0.0-0.1) 01/14/17 04:05 Metamyelocytes # 0.0 K/mm3 01/14/17 04:05 Myelocytes # 0.0 K/mm3 01/14/17 04:05 Promyelocytes # 0.0 K/mm3 01/14/17 04:05 Blast Cells # 0.0 K/mm3 01/14/17 04:05 WBC Morphology Not Reportable 01/14/17 04:05 Hypersegmented Neuts Not Reportable 01/14/17 04:05 Hyposegmented Neuts Not Reportable 01/14/17 04:05 Hypogranular Neuts Not Reportable 01/14/17 04:05 Smudge Cells Not Reportable 01/14/17 04:05 Toxic Granulation Not Reportable 01/14/17 04:05 Toxic Vacuolation Not Reportable 01/14/17 04:05 Dohle Bodies Not Reportable 01/14/17 04:05 Pelger-Huet Anomaly Not Reportable 01/14/17 04:05 Pedro Rods Not Reportable 01/14/17 04:05 Platelet Estimate Not Reportable 01/14/17 04:05 Clumped Platelets Not Reportable 01/14/17 04:05 Plt Clumps, EDTA Not Reportable 01/14/17 04:05 Large Platelets Not Reportable 01/14/17 04:05 Giant Platelets Not Reportable 01/14/17 04:05 Platelet Satelliting Not Reportable 01/14/17 04:05 Plt Morphology Comment Not Reportable 01/14/17 04:05 RBC Morphology Not Reportable 01/14/17 04:05 Dimorphic RBCs Not Reportable 01/14/17 04:05 Polychromasia Not Reportable 01/14/17 04:05 Hypochromasia Not Reportable 01/14/17 04:05 Poikilocytosis Not Reportable 01/14/17 04:05 Anisocytosis 1+ 01/14/17 04:05 Microcytosis Not Reportable 01/14/17 04:05 Macrocytosis Not Reportable 01/14/17 04:05 Spherocytes Not Reportable 01/14/17 04:05 Pappenheimer Bodies Not Reportable 01/14/17 04:05 Sickle Cells Not Reportable 01/14/17 04:05 Target Cells Not Reportable 01/14/17 04:05 Tear Drop Cells Not Reportable 01/14/17 04:05 Ovalocytes Not Reportable 01/14/17 04:05 Helmet Cells Not Reportable 01/14/17 04:05 [place] Bodies Not Reportable 01/14/17 04:05 [place] Rings Not Reportable 01/14/17 04:05 [place] Cells Not Reportable 01/14/17 04:05 Bite Cells Not Reportable 01/14/17 04:05 Crenated Cell Not Reportable 01/14/17 04:05 Elliptocytes Not Reportable 01/14/17 04:05 Acanthocytes (Spur) Not Reportable 01/14/17 04:05 Rouleaux Not Reportable 01/14/17 04:05 Hemoglobin C Crystals Not Reportable 01/14/17 04:05 Schistocytes Not Reportable 01/14/17 04:05 Malaria parasites Not Reportable 01/14/17 04:05 [place] Bodies Not Reportable 01/14/17 04:05 Hem Pathologist Commnt No 01/14/17 04:05 Sodium 133 mmol/L (137-145) L 01/15/17 06:32 Potassium 4.9 mmol/L (3.6-5.0) 01/15/17 06:32 Chloride 94.5 mmol/L (98-107) L 01/15/17 06:32 Carbon Dioxide 28 mmol/L (22-30) 01/15/17 06:32 Anion Gap 15 mmol/L 01/15/17 06:32 BUN 17 mg/dL (7-17) 01/15/17 06:32 Creatinine 0.6 mg/dL (0.7-1.2) L 01/15/17 06:32 Estimated GFR > 60 ml/min 01/15/17 06:32 BUN/Creatinine Ratio 28.33 % 01/15/17 06:32 Glucose 257 mg/dL (65-100) H 01/15/17 06:32 POC Glucose 307 (70-105) H 01/14/17 23:57 Hemoglobin A1c 6.2 % (4-6) H 01/14/17 04:05 Calcium 8.5 mg/dL (8.4-10.2) 01/15/17 06:32 Total Creatine Kinase 94 units/L (30-135) 01/14/17 18:28 CK-MB (CK-2) 1.1 ng/mL (0.0-4.0) 01/14/17 18:28 CK-MB (CK-2) Rel Index 1.1 (0-4) 01/14/17 18:28 Troponin T < 0.010 ng/mL (0.00-0.029) 01/14/17 18:28 NT-Pro-B Natriuret Pep 79.14 pg/mL (0-900) 01/13/17 20:26
[2017-01-15] MEDS: SINGULAIR PO SCH (22:07)
[2017-01-15] MEDS: AMBIEN PO SCH (22:07)
[2017-01-15] MEDS: HABITROL TD SCH (22:50)
[2017-01-16] MEDS: DUONEB 0.5 MG-3 MG/3 ML SOLN IH SCH ×5 (01:14→20:50)
[2017-01-16] MEDS: PERCOCET 5/325 PO PRN ×2 (01:45→21:43)
[2017-01-16 05:38] LABS: Hematocrit 39.7 % (30.3-42.9); Hemoglobin 12.4 gm/dl (10.1-14.3); Mean Corpuscular HGB Conc 31 % (30-34); Mean Corpuscular Hemoglobin 26 pg (28-32); Mean Corpuscular Volume 84 fl (79-97); Platelet Count 337 K/mm3 (140-440); Red Blood Count 4.73 M/mm3 (3.65-5.03); Red Cell Distribution Width 14.4 % (13.2-15.2)
[2017-01-16 05:43] LABS: White Blood Count 25.3 K/mm3 (4.5-11.0)
[2017-01-16 05:47] LABS: BUN/Creatinine Ratio 26.25; Blood Urea Nitrogen 21 mg/dL (7-17); Calcium 8.6 mg/dL (8.4-10.2); Carbon Dioxide 31 mmol/L (22-30); Glucose 334 mg/dL (65-100)
[2017-01-16 06:42] LABS: Anion Gap 16 mmol/L; Potassium 5.2 mmol/L (3.6-5.0); Sodium 133 mmol/L (137-145)
[2017-01-16] MEDS: BROVANA NEBU IH SCH ×2 (08:06→20:51)
[2017-01-16] MEDS: PULMICORT IH SCH ×2 (08:06→20:51)
--- NOTE | 2017-01-16 09:50 | Progress Note ---
Assessment and Plan Assessment and plan: Patient is a pleasant 56-year-old female with history of COPD, asthma, bipolar disorder, who is visiting from [facility] reports that she unfortunately forgot her nebulizer and was out of her medication, was managed in the hospital for 5 days with cough persistent and non productive, symptoms improved to where she was speaking without shortness of breath, still with some mild wheeze and was subsequently discharged, returns today with exacerbation of symptoms and chest tightness. CTA done in the last admission did not demonstrate PE. patient on return required BIPAP She denies any environmental allergies. She denies a prior history of surgery. She denies any prior intubation due to pulmonary condition. She denies any fever, nausea, vomiting, diarrhea. She denies any chest pain. She does note some cough but nonproductive. Patient has continued to have some improvement on steroids and will start taper today and she can be discharged once able stable on PO. * Acute on chronic respiratory failure with hypoxia * Asthma exacerbation * Acute bacterial bronchitis' * Hyperkalemia * Chest Pain * Non productive Cough * Bipolar disorder * Metabolic syndrome A1c 6.2 * Lukocytosis- likely secondary to steroids * Elevated BG- no hx of DM. * Morbid obesity * Chronic osteoarthritis * Chronic pain and anxiety syndrome * Tobacco abuse Plan * Continue supportive care, pulmonary noted. Continue tapering steroids. Slow taper ideal for this patient. Continue sliding scale A1c and metabolic syndrome discussed with the patient in detail. Will benefit from metformin outpatient * Give a dose of kayxalate * wean oxygen * change abx to PO * continue IV Solu-Medrol, taper based on clinical improvement * Give a dose of insulin 12 units. I expect that with reduced dose of steroids, BG will improve also. * CTA negative for PE * Recommended warm humidification at home. * Start Robitussin with codeine * continue on nebulizer treatment, * Recent pain meds * Nicotine patch * Extensive conversation and counseling on tobacco cessation patient verbalized understanding * Peak flow meter and instructed on how to use * DVT and GI prophylaxis * Weight loss counseling provided to the patient due to patient verbalized understanding History Interval history: Patient seen and examined, transferred to the medical floor stable, some shortness of breath otherwise improved and still with wheezing. Complaints of generalized body pain at the joints which is chronic for her. No other adverse events reported by nursing staff no fever. Hospitalist Physical - Physical exam Narrative exam: VITAL SIGNS: Reviewed. GENERAL: The patient appeared well nourished and normally developed, horase voice.obese. Vital signs as documented. HEAD: No signs of head trauma. EYES: Pupils are equal. Extraocular motions intact. EARS: Hearing grossly intact. MOUTH: Oropharynx is normal. NECK: No adenopathy, no JVD. CHEST: Chest with bilateral expiratory wheezing. No accessory muscle use. CARDIAC: Regular rate and rhythm. S1 and S2, without murmurs, gallops, or rubs. VASCULAR: No Edema. Peripheral pulses normal and equal in all extremities. ABDOMEN: Soft, without detectable tenderness. No sign of distention. No rebound or guarding, and no masses palpated. Bowel Sounds normal. MUSCULOSKELETAL: Good range of motion of all major joints. Extremities without clubbing, cyanosis or edema. NEUROLOGIC EXAM: Alert and oriented x 3. No focal sensory or strength deficits. Speech normal. Follows commands. PSYCHIATRIC: Mood normal. SKIN: No rash or lesions. - Constitutional Vitals: Temp Pulse Resp BP Pulse Ox 97.6 F 79 18 120/69 98 01/16/17 08:00 01/16/17 08:00 01/16/17 08:00 01/16/17 08:00 01/16/17 08:00 Results - Labs CBC & Chem 7: 01/16/17 04:41 01/16/17 04:41 Labs: Laboratory Last Values WBC 25.3 K/mm3 (4.5-11.0) H 01/16/17 04:41 RBC 4.73 M/mm3 (3.65-5.03) 01/16/17 04:41 Hgb 12.4 gm/dl (10.1-14.3) 01/16/17 04:41 Hct 39.7 % (30.3-42.9) 01/16/17 04:41 MCV 84 fl (79-97) 01/16/17 04:41 MCH 26 pg (28-32) L 01/16/17 04:41 MCHC 31 % (30-34) 01/16/17 04:41 RDW 14.4 % (13.2-15.2) 01/16/17 04:41 Plt Count 337 K/mm3 (140-440) 01/16/17 04:41 Add Manual Diff Complete 01/14/17 04:05 Total Counted 100 01/14/17 04:05 Seg Neutrophils % Pit Steward 01/14/17 04:05 Seg Neuts % (Manual) 90.0 % (40.0-70.0) H 01/14/17 04:05 Band Neutrophils % 2.0 % 01/14/17 04:05 Lymphocytes % (Manual) 6.0 % (13.4-35.0) L 01/14/17 04:05 Reactive Lymphs % (Man) 0 % 01/14/17 04:05 Monocytes % (Manual) 2.0 % (0.0-7.3) 01/14/17 04:05 Eosinophils % (Manual) 0 % (0.0-4.3) 01/14/17 04:05 Basophils % (Manual) 0 % (0.0-1.8) 01/14/17 04:05 Metamyelocytes % 0 % 01/14/17 04:05 Myelocytes % 0 % 01/14/17 04:05 Promyelocytes % 0 % 01/14/17 04:05 Blast Cells % 0 % 01/14/17 04:05 Nucleated RBC % Not Reportable 01/14/17 04:05 Seg Neutrophils # Man 20.3 K/mm3 (1.8-7.7) H 01/14/17 04:05 Band Neutrophils # 0.5 K/mm3 01/14/17 04:05 Lymphocytes # (Manual) 1.4 K/mm3 (1.2-5.4) 01/14/17 04:05 Abs React Lymphs (Man) 0.0 K/mm3 01/14/17 04:05 Monocytes # (Manual) 0.5 K/mm3 (0.0-0.8) 01/14/17 04:05 Eosinophils # (Manual) 0.0 K/mm3 (0.0-0.4) 01/14/17 04:05 Basophils # (Manual) 0.0 K/mm3 (0.0-0.1) 01/14/17 04:05 Metamyelocytes # 0.0 K/mm3 01/14/17 04:05 Myelocytes # 0.0 K/mm3 01/14/17 04:05 Promyelocytes # 0.0 K/mm3 01/14/17 04:05 Blast Cells # 0.0 K/mm3 01/14/17 04:05 WBC Morphology Not Reportable 01/14/17 04:05 Hypersegmented Neuts Not Reportable 01/14/17 04:05 Hyposegmented Neuts Not Reportable 01/14/17 04:05 Hypogranular Neuts Not Reportable 01/14/17 04:05 Smudge Cells Not Reportable 01/14/17 04:05 Toxic Granulation Not Reportable 01/14/17 04:05 Toxic Vacuolation Not Reportable 01/14/17 04:05 Dohle Bodies Not Reportable 01/14/17 04:05 Pelger-Huet Anomaly Not Reportable 01/14/17 04:05 Pedro Rods Not Reportable 01/14/17 04:05 Platelet Estimate Not Reportable 01/14/17 04:05 Clumped Platelets Not Reportable 01/14/17 04:05 Plt Clumps, EDTA Not Reportable 01/14/17 04:05 Large Platelets Not Reportable 01/14/17 04:05 Giant Platelets Not Reportable 01/14/17 04:05 Platelet Satelliting Not Reportable 01/14/17 04:05 Plt Morphology Comment Not Reportable 01/14/17 04:05 RBC Morphology Not Reportable 01/14/17 04:05 Dimorphic RBCs Not Reportable 01/14/17 04:05 Polychromasia Not Reportable 01/14/17 04:05 Hypochromasia Not Reportable 01/14/17 04:05 Poikilocytosis Not Reportable 01/14/17 04:05 Anisocytosis 1+ 01/14/17 04:05 Microcytosis Not Reportable 01/14/17 04:05 Macrocytosis Not Reportable 01/14/17 04:05 Spherocytes Not Reportable 01/14/17 04:05 Pappenheimer Bodies Not Reportable 01/14/17 04:05 Sickle Cells Not Reportable 01/14/17 04:05 Target Cells Not Reportable 01/14/17 04:05 Tear Drop Cells Not Reportable 01/14/17 04:05 Ovalocytes Not Reportable 01/14/17 04:05 Helmet Cells Not Reportable 01/14/17 04:05 [place] Bodies Not Reportable 01/14/17 04:05 [place] Rings Not Reportable 01/14/17 04:05 [place] Cells Not Reportable 01/14/17 04:05 Bite Cells Not Reportable 01/14/17 04:05 Crenated Cell Not Reportable 01/14/17 04:05 Elliptocytes Not Reportable 01/14/17 04:05 Acanthocytes (Spur) Not Reportable 01/14/17 04:05 Rouleaux Not Reportable 01/14/17 04:05 Hemoglobin C Crystals Not Reportable 01/14/17 04:05 Schistocytes Not Reportable 01/14/17 04:05 Malaria parasites Not Reportable 01/14/17 04:05 [place] Bodies Not Reportable 01/14/17 04:05 Hem Pathologist Commnt No 01/14/17 04:05 Sodium 133 mmol/L (137-145) L 01/16/17 04:41 Potassium 5.2 mmol/L (3.6-5.0) H 01/16/17 04:41 Chloride 91.0 mmol/L (98-107) L 01/16/17 04:41 Carbon Dioxide 31 mmol/L (22-30) H 01/16/17 04:41 Anion Gap 16 mmol/L 01/16/17 04:41 BUN 21 mg/dL (7-17) H 01/16/17 04:41 Creatinine 0.8 mg/dL (0.7-1.2) 01/16/17 04:41 Estimated GFR > 60 ml/min 01/16/17 04:41 BUN/Creatinine Ratio 26.25 % 01/16/17 04:41 Glucose 334 mg/dL (65-100) H 01/16/17 04:41 POC Glucose 317 (70-105) H 01/15/17 21:34 Hemoglobin A1c 6.2 % (4-6) H 01/14/17 04:05 Calcium 8.6 mg/dL (8.4-10.2) 01/16/17 04:41 Total Creatine Kinase 94 units/L (30-135) 01/14/17 18:28 CK-MB (CK-2) 1.1 ng/mL (0.0-4.0) 01/14/17 18:28 CK-MB (CK-2) Rel Index 1.1 (0-4) 01/14/17 18:28 Troponin T < 0.010 ng/mL (0.00-0.029) 01/14/17 18:28 NT-Pro-B Natriuret Pep 79.14 pg/mL (0-900) 01/13/17 20:26
[2017-01-16] MEDS: HABITROL TD SCH (10:10)
[2017-01-16] MEDS: LOVENOX SUB-Q SCH (10:10)
[2017-01-16] MEDS: NAMENDA XR PO SCH (10:11)
[2017-01-16] MEDS: NEURONTIN PO SCH ×4 (10:12→21:43)
[2017-01-16] MEDS: ZITHROMAX PO SCH (11:16)
--- NOTE | 2017-01-16 13:07 | Progress Note ---
Assessment and Plan Imp: 1. Acute bronchitis 2. COPD exac. 3. Asthma exac. 4. Acute respiratory failure, hypoxia 5. Morbid obesity 6. Chronic nicotine dependence, cigs 7. Leukocytosis 2/2 steroids Rec: 1. Agree w/ current management but can taper the Solumedrol dose and add Pulmicort/Brovana 2. Wean O2 to keep sats 88-94% 3. Cont. to avoid smoking 4. Transfer to floor when bed available 5. DVT PPx 6. Outpatient PFTs Subjective Date of service: 01/16/17 Interval history: Patient feeling better with improvement in her wheezing and breathing. However she does not feel close to baseline yet Objective Vital Signs - 12hr 01/16/17 01/16/17 01/16/17 01:15 01:25 05:39 Temperature 97.7 F Pulse Rate [ 107 H 91 H Anterior Bilateral Throughout] Pulse Rate [ 88 Dorsalis Pedis] Respiratory 22 Rate Respiratory 20 20 Rate [Anterior Bilateral Throughout] Blood Pressure 115/62 [Left Arm] O2 Sat by Pulse 97 Oximetry 01/16/17 01/16/17 01/16/17 08:00 08:06 08:16 Temperature 97.6 F Pulse Rate [ 70 78 Anterior Bilateral Throughout] Pulse Rate [ 79 Dorsalis Pedis] Respiratory 18 Rate Respiratory 20 20 Rate [Anterior Bilateral Throughout] Blood Pressure 120/69 [Left Arm] O2 Sat by Pulse 98 96 Oximetry Constitutional: no acute distress, alert Eyes: non-icteric ENT: oropharynx moist Neck: supple Effort: normal Ascultation: Bilateral: wheezes (faint and bilateral) Cardiovascular: regular rate and rhythm (no mrg) Gastrointestinal: normoactive bowel sounds, soft, non-tender, non-distended Integumentary: normal Extremities: no cyanosis, no edema, pink and warm Neurologic: normal mental status, non-focal exam, pupils equal and round, CN II- XII normal Psychiatric: mood appropriate, affect normal CBC and BMP: 01/16/17 04:41 01/16/17 04:41 Abnormal lab findings: Abnormal Labs 01/14/17 01/14/17 01/14/17 04:05 04:05 04:05 WBC 22.5 H MCH 27 L Seg Neuts % (Manual) 90.0 H Lymphocytes % (Manual) 6.0 L Seg Neutrophils # Man 20.3 H Sodium 135 L Potassium Chloride 94.0 L Carbon Dioxide BUN 21 H Creatinine Glucose 260 H POC Glucose Hemoglobin A1c 6.2 H 01/14/17 01/14/17 01/14/17 11:03 17:01 23:57 WBC MCH Seg Neuts % (Manual) Lymphocytes % (Manual) Seg Neutrophils # Man Sodium Potassium Chloride Carbon Dioxide BUN Creatinine Glucose POC Glucose 215 H 267 H 307 H Hemoglobin A1c 01/15/17 01/15/17 01/15/17 06:32 06:32 09:33 WBC 26.1 H MCH 26 L Seg Neuts % (Manual) Lymphocytes % (Manual) Seg Neutrophils # Man Sodium 133 L Potassium Chloride 94.5 L Carbon Dioxide BUN Creatinine 0.6 L Glucose 257 H POC Glucose 250 H Hemoglobin A1c 01/15/17 01/15/17 01/15/17 11:29 16:21 21:34 WBC MCH Seg Neuts % (Manual) Lymphocytes % (Manual) Seg Neutrophils # Man Sodium Potassium Chloride Carbon Dioxide BUN Creatinine Glucose POC Glucose 216 H 210 H 317 H Hemoglobin A1c 01/16/17 01/16/17 04:41 04:41 WBC 25.3 H MCH 26 L Seg Neuts % (Manual) Lymphocytes % (Manual) Seg Neutrophils # Man Sodium 133 L Potassium 5.2 H Chloride 91.0 L Carbon Dioxide 31 H BUN 21 H Creatinine Glucose 334 H POC Glucose Hemoglobin A1c
[2017-01-16] MEDS: NOVOLOG SUB-Q SCH ×3 (20:43→21:45)
[2017-01-16] MEDS: SINGULAIR PO SCH (21:43)
[2017-01-16] MEDS: AMBIEN PO SCH (21:43)
[2017-01-17] MEDS: DUONEB 0.5 MG-3 MG/3 ML SOLN IH SCH ×4 (01:21→21:07)
[2017-01-17] MEDS: PULMICORT IH SCH ×2 (08:22→21:06)
[2017-01-17] MEDS: BROVANA NEBU IH SCH ×2 (08:23→21:06)
[2017-01-17] MEDS: NOVOLOG SUB-Q SCH ×4 (08:57→23:20)
[2017-01-17] MEDS: ZITHROMAX PO SCH (09:01)
[2017-01-17] MEDS: NEURONTIN PO SCH ×4 (09:01→21:41)
[2017-01-17] MEDS: NAMENDA XR PO SCH (09:02)
[2017-01-17] MEDS: LOVENOX SUB-Q SCH (09:04)
[2017-01-17] MEDS: HABITROL TD SCH (09:05)
--- NOTE | 2017-01-17 11:59 | Progress Note ---
Assessment and Plan Assessment and plan: Patient is a 56-year-old morbidly obese woman BMI 44 with a history of COPD, asthma and bipolar disorder who is visiting from [place], [place] without her nebulizer and ran out of medication developed shortness of breath with a worsening cough. CTA done in the last admission did not demonstrate PE. patient on return required BIPAP She denies any environmental allergies. She denies a prior history of surgery. She denies any prior intubation due to pulmonary condition. She denies any fever, nausea, vomiting, diarrhea. She denies any chest pain. She does note some cough but nonproductive. Patient has continued to have some improvement on steroids and will start taper today and she can be discharged once able stable on PO. Acute on chronic respiratory failure with hypoxia Asthma exacerbation Acute bacterial bronchitis' Hyperkalemia Chest Pain Non productive Cough she initially came to the Bipolar disorder Metabolic syndrome A1c 6.2 Lukocytosis- likely secondary to steroids Elevated BG- no hx of DM. Morbid obesity Chronic osteoarthritis Chronic pain and anxiety syndrome Tobacco abuse Plan Continue supportive care, pulmonary noted. Continue tapering steroids. Slow taper ideal for this patient. Continue sliding scale A1c and metabolic syndrome discussed with the patient in detail. Will benefit from metformin outpatient Give a dose of kayxalate wean oxygen change abx to PO continue IV Solu-Medrol, taper based on clinical improvement Give a dose of insulin 12 units. I expect that with reduced dose of steroids , BG will improve also. CTA negative for PE Recommended warm humidification at home. Start Robitussin with codeine continue on nebulizer treatment, Recent pain meds Nicotine patch Extensive conversation and counseling on tobacco cessation patient verbalized understanding Peak flow meter and instructed on how to use DVT and GI prophylaxis Weight loss counseling provided to the patient due to patient verbalized understanding Disposition: Try to wean off oxygen/set up home oxygen History Interval history: Patient seen and examined. Follow up on shortness of breath. Overnight uneventful. No cp, sob, n/v or severe headaches. Imaging, old records, testing, labs, nursing notes reviewed. Plan discussed with patient. Hospitalist Physical - Physical exam Narrative exam: GEN: WDWN, NAD, AWAKE, ALERT, ORIENTATED 3 on 4 L oxygen nasal cannula HEENT: NCAT, PERRL, EOMI, OP CLEAR NECK: SUPPLE, NO THYROMEGALY, NO JVD, NO LAD CVS: RRR, NORMAL S1S2 LUNGS/CHEST: Coarse rhonchi bilaterally NORMAL CHEST EXPANSION B, adequate AIR ENTRY B ABD: SOFT NTND, GBS, NO REBOUND OR GUARDING EXT/SKIN: NO SIGNIFICANT EDEMA OR RASH MSK: FROM X 4 EXTREMITIES NEURO: CN 2-12 GROSSLY INTACT, NO new FOCAL DEFICITS PSY: CALM - Constitutional Vitals: Temp Pulse Resp BP Pulse Ox 97.6 F 88 20 83/64 96 01/17/17 10:34 01/17/17 10:34 01/17/17 10:34 01/17/17 10:34 01/17/17 09:03 Results - Labs CBC & Chem 7: 01/16/17 04:41 01/16/17 04:41 Labs: Laboratory Last Values WBC 25.3 K/mm3 (4.5-11.0) H 01/16/17 04:41 RBC 4.73 M/mm3 (3.65-5.03) 01/16/17 04:41 Hgb 12.4 gm/dl (10.1-14.3) 01/16/17 04:41 Hct 39.7 % (30.3-42.9) 01/16/17 04:41 MCV 84 fl (79-97) 01/16/17 04:41 MCH 26 pg (28-32) L 01/16/17 04:41 MCHC 31 % (30-34) 01/16/17 04:41 RDW 14.4 % (13.2-15.2) 01/16/17 04:41 Plt Count 337 K/mm3 (140-440) 01/16/17 04:41 Add Manual Diff Complete 01/14/17 04:05 Total Counted 100 01/14/17 04:05 Seg Neutrophils % Cover Cutter 01/14/17 04:05 Seg Neuts % (Manual) 90.0 % (40.0-70.0) H 01/14/17 04:05 Band Neutrophils % 2.0 % 01/14/17 04:05 Lymphocytes % (Manual) 6.0 % (13.4-35.0) L 01/14/17 04:05 Reactive Lymphs % (Man) 0 % 01/14/17 04:05 Monocytes % (Manual) 2.0 % (0.0-7.3) 01/14/17 04:05 Eosinophils % (Manual) 0 % (0.0-4.3) 01/14/17 04:05 Basophils % (Manual) 0 % (0.0-1.8) 01/14/17 04:05 Metamyelocytes % 0 % 01/14/17 04:05 Myelocytes % 0 % 01/14/17 04:05 Promyelocytes % 0 % 01/14/17 04:05 Blast Cells % 0 % 01/14/17 04:05 Nucleated RBC % Not Reportable 01/14/17 04:05 Seg Neutrophils # Man 20.3 K/mm3 (1.8-7.7) H 01/14/17 04:05 Band Neutrophils # 0.5 K/mm3 01/14/17 04:05 Lymphocytes # (Manual) 1.4 K/mm3 (1.2-5.4) 01/14/17 04:05 Abs React Lymphs (Man) 0.0 K/mm3 01/14/17 04:05 Monocytes # (Manual) 0.5 K/mm3 (0.0-0.8) 01/14/17 04:05 Eosinophils # (Manual) 0.0 K/mm3 (0.0-0.4) 01/14/17 04:05 Basophils # (Manual) 0.0 K/mm3 (0.0-0.1) 01/14/17 04:05 Metamyelocytes # 0.0 K/mm3 01/14/17 04:05 Myelocytes # 0.0 K/mm3 01/14/17 04:05 Promyelocytes # 0.0 K/mm3 01/14/17 04:05 Blast Cells # 0.0 K/mm3 01/14/17 04:05 WBC Morphology Not Reportable 01/14/17 04:05 Hypersegmented Neuts Not Reportable 01/14/17 04:05 Hyposegmented Neuts Not Reportable 01/14/17 04:05 Hypogranular Neuts Not Reportable 01/14/17 04:05 Smudge Cells Not Reportable 01/14/17 04:05 Toxic Granulation Not Reportable 01/14/17 04:05 Toxic Vacuolation Not Reportable 01/14/17 04:05 Dohle Bodies Not Reportable 01/14/17 04:05 Pelger-Huet Anomaly Not Reportable 01/14/17 04:05 Pedro Rods Not Reportable 01/14/17 04:05 Platelet Estimate Not Reportable 01/14/17 04:05 Clumped Platelets Not Reportable 01/14/17 04:05 Plt Clumps, EDTA Not Reportable 01/14/17 04:05 Large Platelets Not Reportable 01/14/17 04:05 Giant Platelets Not Reportable 01/14/17 04:05 Platelet Satelliting Not Reportable 01/14/17 04:05 Plt Morphology Comment Not Reportable 01/14/17 04:05 RBC Morphology Not Reportable 01/14/17 04:05 Dimorphic RBCs Not Reportable 01/14/17 04:05 Polychromasia Not Reportable 01/14/17 04:05 Hypochromasia Not Reportable 01/14/17 04:05 Poikilocytosis Not Reportable 01/14/17 04:05 Anisocytosis 1+ 01/14/17 04:05 Microcytosis Not Reportable 01/14/17 04:05 Macrocytosis Not Reportable 01/14/17 04:05 Spherocytes Not Reportable 01/14/17 04:05 Pappenheimer Bodies Not Reportable 01/14/17 04:05 Sickle Cells Not Reportable 01/14/17 04:05 Target Cells Not Reportable 01/14/17 04:05 Tear Drop Cells Not Reportable 01/14/17 04:05 Ovalocytes Not Reportable 01/14/17 04:05 Helmet Cells Not Reportable 01/14/17 04:05 [place] Bodies Not Reportable 01/14/17 04:05 [place] Rings Not Reportable 01/14/17 04:05 Taya Cells Not Reportable 01/14/17 04:05 Bite Cells Not Reportable 01/14/17 04:05 Crenated Cell Not Reportable 01/14/17 04:05 Elliptocytes Not Reportable 01/14/17 04:05 Acanthocytes (Spur) Not Reportable 01/14/17 04:05 Rouleaux Not Reportable 01/14/17 04:05 Hemoglobin C Crystals Not Reportable 01/14/17 04:05 Schistocytes Not Reportable 01/14/17 04:05 Malaria parasites Not Reportable 01/14/17 04:05 Chandler Bodies Not Reportable 01/14/17 04:05 Hem Pathologist Commnt No 01/14/17 04:05 Sodium 133 mmol/L (137-145) L 01/16/17 04:41 Potassium 5.2 mmol/L (3.6-5.0) H 01/16/17 04:41 Chloride 91.0 mmol/L (98-107) L 01/16/17 04:41 Carbon Dioxide 31 mmol/L (22-30) H 01/16/17 04:41 Anion Gap 16 mmol/L 01/16/17 04:41 BUN 21 mg/dL (7-17) H 01/16/17 04:41 Creatinine 0.8 mg/dL (0.7-1.2) 01/16/17 04:41 Estimated GFR > 60 ml/min 01/16/17 04:41 BUN/Creatinine Ratio 26.25 % 01/16/17 04:41 Glucose 334 mg/dL (65-100) H 01/16/17 04:41 POC Glucose 136 (70-105) H 01/16/17 16:29 Hemoglobin A1c 6.2 % (4-6) H 01/14/17 04:05 Calcium 8.6 mg/dL (8.4-10.2) 01/16/17 04:41 Total Creatine Kinase 94 units/L (30-135) 01/14/17 18:28 CK-MB (CK-2) 1.1 ng/mL (0.0-4.0) 01/14/17 18:28 CK-MB (CK-2) Rel Index 1.1 (0-4) 01/14/17 18:28 Troponin T < 0.010 ng/mL (0.00-0.029) 01/14/17 18:28 NT-Pro-B Natriuret Pep 79.14 pg/mL (0-900) 01/13/17 20:26
[2017-01-17] MEDS: PERCOCET 5/325 PO PRN ×2 (12:51→23:19)
--- NOTE | 2017-01-17 12:57 | Progress Note ---
Assessment and Plan 56 y/o female with new diagnosis of COPD, admitted with COPD exacerbation. 1. Increase IV steroids to q6hour dosing 2. Continue pulmicort and brovana and PRN nebs 3. Encouraged OOB to chair and ambulate as tolerated 4. Monitor blood sugars, may need more insulin with increase in steroids Subjective Date of service: 01/17/17 Interval history: patient still dyspnic, wheezing significantly. Off oxygen but has not had sat checked off. Objective Vital Signs - 12hr 01/17/17 01/17/17 01/17/17 00:54 01:13 01:24 Temperature 98.3 F Pulse Rate [ 87 89 Anterior Bilateral Throughout] Pulse Rate [ 96 H Dorsalis Pedis] Pulse Rate [ Left Radial] Respiratory 20 Rate Respiratory 16 16 Rate [Anterior Bilateral Throughout] Blood Pressure 116/71 [Left Arm] O2 Sat by Pulse 96 Oximetry 01/17/17 01/17/17 01/17/17 04:25 08:00 08:23 Temperature 97.6 F Pulse Rate [ 112 H 112 H Anterior Bilateral Throughout] Pulse Rate [ 87 Dorsalis Pedis] Pulse Rate [ Left Radial] Respiratory 20 Rate Respiratory 17 19 Rate [Anterior Bilateral Throughout] Blood Pressure 119/72 [Left Arm] O2 Sat by Pulse 96 Oximetry 01/17/17 01/17/17 01/17/17 08:25 09:03 10:34 Temperature 97.6 F Pulse Rate [ Anterior Bilateral Throughout] Pulse Rate [ Dorsalis Pedis] Pulse Rate [ 88 Left Radial] Respiratory 20 Rate Respiratory Rate [Anterior Bilateral Throughout] Blood Pressure 83/64 [Left Arm] O2 Sat by Pulse 97 96 Oximetry Constitutional: no acute distress, alert Eyes: non-icteric ENT: oropharynx moist Neck: supple Effort: normal Ascultation: Bilateral: wheezes Cardiovascular: regular rate and rhythm (no mrg) Gastrointestinal: normoactive bowel sounds, soft, non-tender, non-distended Integumentary: normal Extremities: no cyanosis, no edema, pink and warm Neurologic: normal mental status, non-focal exam, pupils equal and round, CN II- XII normal Psychiatric: mood appropriate, affect normal CBC and BMP: 01/16/17 04:41 01/16/17 04:41 Abnormal lab findings: Abnormal Labs 01/14/17 01/14/17 01/14/17 04:05 04:05 04:05 WBC 22.5 H MCH 27 L Seg Neuts % (Manual) 90.0 H Lymphocytes % (Manual) 6.0 L Seg Neutrophils # Man 20.3 H Sodium 135 L Potassium Chloride 94.0 L Carbon Dioxide BUN 21 H Creatinine Glucose 260 H POC Glucose Hemoglobin A1c 6.2 H 01/14/17 01/14/17 01/14/17 11:03 17:01 23:57 WBC MCH Seg Neuts % (Manual) Lymphocytes % (Manual) Seg Neutrophils # Man Sodium Potassium Chloride Carbon Dioxide BUN Creatinine Glucose POC Glucose 215 H 267 H 307 H Hemoglobin A1c 01/15/17 01/15/17 01/15/17 06:32 06:32 09:33 WBC 26.1 H MCH 26 L Seg Neuts % (Manual) Lymphocytes % (Manual) Seg Neutrophils # Man Sodium 133 L Potassium Chloride 94.5 L Carbon Dioxide BUN Creatinine 0.6 L Glucose 257 H POC Glucose 250 H Hemoglobin A1c 01/15/17 01/15/17 01/15/17 11:29 16:21 21:34 WBC MCH Seg Neuts % (Manual) Lymphocytes % (Manual) Seg Neutrophils # Man Sodium Potassium Chloride Carbon Dioxide BUN Creatinine Glucose POC Glucose 216 H 210 H 317 H Hemoglobin A1c 01/16/17 01/16/17 01/16/17 04:41 04:41 12:23 WBC 25.3 H MCH 26 L Seg Neuts % (Manual) Lymphocytes % (Manual) Seg Neutrophils # Man Sodium 133 L Potassium 5.2 H Chloride 91.0 L Carbon Dioxide 31 H BUN 21 H Creatinine Glucose 334 H POC Glucose 228 H Hemoglobin A1c 01/16/17 16:29 WBC MCH Seg Neuts % (Manual) Lymphocytes % (Manual) Seg Neutrophils # Man Sodium Potassium Chloride Carbon Dioxide BUN Creatinine Glucose POC Glucose 136 H Hemoglobin A1c
[2017-01-17] MEDS: AMBIEN PO SCH (21:40)
[2017-01-17] MEDS: SINGULAIR PO SCH (21:40)
[2017-01-18] MEDS: DUONEB 0.5 MG-3 MG/3 ML SOLN IH SCH ×5 (01:55→21:01)
[2017-01-18] MEDS: NOVOLOG SUB-Q SCH ×4 (08:46→22:42)
--- NOTE | 2017-01-18 09:14 | Progress Note ---
Assessment and Plan Assessment and plan: Patient is a 56-year-old morbidly obese woman BMI 44 with a history of COPD, asthma and bipolar disorder who is visiting from [place], [place] without her nebulizer and ran out of medication who developed shortness of breath with a worsening cough. CTA chest done in the last admission did not demonstrate PE. Patient required BIPAP, now weaned off. She denies any prior intubation for asthma. She was initially admitted here on 01/06/2017 and discharged. 01/12/2017. She came back the next day on 01/13/2017 for worsening sob. -Acute on chronic respiratory failure with hypoxia -Asthma exacerbation: Pulmonology had to increase iv steroids and she still feels tight. -Acute bacterial bronchitis: on Azithromycin, day 3 -Hyperkalemia, repeat bmp -Bipolar disorder: cpm -Leukocytosis- likely secondary to steroids -Morbid obesity: credit support counselor on weight loss -Chronic pain and anxiety syndrome -Tobacco abuse: credit support counselor on cessation -Hyperglycemia, a1c 6.2, related to steroids; on ssi. Will adjust Disposition: Try to wean off oxygen and wean down iv steroids. History Interval history: Patient seen and examined. Follow up on shortness of breath. She still feels thigh in her lungs. Overnight uneventful. No cp, sob, n/v or severe headaches. Imaging, old records, testing, labs, nursing notes reviewed. Plan discussed with patient. Hospitalist Physical - Physical exam Narrative exam: GEN: WDWN, NAD, AWAKE, ALERT, ORIENTATED 3 on 4 L oxygen nasal cannula HEENT: NCAT, PERRL, EOMI, OP CLEAR NECK: SUPPLE, NO THYROMEGALY, NO JVD, NO LAD CVS: RRR, NORMAL S1S2 LUNGS/CHEST: Coarse rhonchi bilaterally NORMAL CHEST EXPANSION B, adequate AIR ENTRY B ABD: SOFT NTND, GBS, NO REBOUND OR GUARDING EXT/SKIN: NO SIGNIFICANT EDEMA OR RASH MSK: FROM X 4 EXTREMITIES NEURO: CN 2-12 GROSSLY INTACT, NO new FOCAL DEFICITS PSY: CALM - Constitutional Vitals: Temp Pulse Resp BP Pulse Ox 98.4 F 73 18 121/70 93 01/18/17 04:00 01/18/17 08:40 01/18/17 08:40 01/18/17 04:00 01/18/17 08:40 Results - Labs CBC & Chem 7: 01/16/17 04:41 01/16/17 04:41 Labs: Laboratory Last Values WBC 25.3 K/mm3 (4.5-11.0) H 01/16/17 04:41 RBC 4.73 M/mm3 (3.65-5.03) 01/16/17 04:41 Hgb 12.4 gm/dl (10.1-14.3) 01/16/17 04:41 Hct 39.7 % (30.3-42.9) 01/16/17 04:41 MCV 84 fl (79-97) 01/16/17 04:41 MCH 26 pg (28-32) L 01/16/17 04:41 MCHC 31 % (30-34) 01/16/17 04:41 RDW 14.4 % (13.2-15.2) 01/16/17 04:41 Plt Count 337 K/mm3 (140-440) 01/16/17 04:41 Add Manual Diff Complete 01/14/17 04:05 Total Counted 100 01/14/17 04:05 Seg Neutrophils % Environmental Services Worker 01/14/17 04:05 Seg Neuts % (Manual) 90.0 % (40.0-70.0) H 01/14/17 04:05 Band Neutrophils % 2.0 % 01/14/17 04:05 Lymphocytes % (Manual) 6.0 % (13.4-35.0) L 01/14/17 04:05 Reactive Lymphs % (Man) 0 % 01/14/17 04:05 Monocytes % (Manual) 2.0 % (0.0-7.3) 01/14/17 04:05 Eosinophils % (Manual) 0 % (0.0-4.3) 01/14/17 04:05 Basophils % (Manual) 0 % (0.0-1.8) 01/14/17 04:05 Metamyelocytes % 0 % 01/14/17 04:05 Myelocytes % 0 % 01/14/17 04:05 Promyelocytes % 0 % 01/14/17 04:05 Blast Cells % 0 % 01/14/17 04:05 Nucleated RBC % Not Reportable 01/14/17 04:05 Seg Neutrophils # Man 20.3 K/mm3 (1.8-7.7) H 01/14/17 04:05 Band Neutrophils # 0.5 K/mm3 01/14/17 04:05 Lymphocytes # (Manual) 1.4 K/mm3 (1.2-5.4) 01/14/17 04:05 Abs React Lymphs (Man) 0.0 K/mm3 01/14/17 04:05 Monocytes # (Manual) 0.5 K/mm3 (0.0-0.8) 01/14/17 04:05 Eosinophils # (Manual) 0.0 K/mm3 (0.0-0.4) 01/14/17 04:05 Basophils # (Manual) 0.0 K/mm3 (0.0-0.1) 01/14/17 04:05 Metamyelocytes # 0.0 K/mm3 01/14/17 04:05 Myelocytes # 0.0 K/mm3 01/14/17 04:05 Promyelocytes # 0.0 K/mm3 01/14/17 04:05 Blast Cells # 0.0 K/mm3 01/14/17 04:05 WBC Morphology Not Reportable 01/14/17 04:05 Hypersegmented Neuts Not Reportable 01/14/17 04:05 Hyposegmented Neuts Not Reportable 01/14/17 04:05 Hypogranular Neuts Not Reportable 01/14/17 04:05 Smudge Cells Not Reportable 01/14/17 04:05 Toxic Granulation Not Reportable 01/14/17 04:05 Toxic Vacuolation Not Reportable 01/14/17 04:05 Dohle Bodies Not Reportable 01/14/17 04:05 Pelger-Huet Anomaly Not Reportable 01/14/17 04:05 Pedro Rods Not Reportable 01/14/17 04:05 Platelet Estimate Not Reportable 01/14/17 04:05 Clumped Platelets Not Reportable 01/14/17 04:05 Plt Clumps, EDTA Not Reportable 01/14/17 04:05 Large Platelets Not Reportable 01/14/17 04:05 Giant Platelets Not Reportable 01/14/17 04:05 Platelet Satelliting Not Reportable 01/14/17 04:05 Plt Morphology Comment Not Reportable 01/14/17 04:05 RBC Morphology Not Reportable 01/14/17 04:05 Dimorphic RBCs Not Reportable 01/14/17 04:05 Polychromasia Not Reportable 01/14/17 04:05 Hypochromasia Not Reportable 01/14/17 04:05 Poikilocytosis Not Reportable 01/14/17 04:05 Anisocytosis 1+ 01/14/17 04:05 Microcytosis Not Reportable 01/14/17 04:05 Macrocytosis Not Reportable 01/14/17 04:05 Spherocytes Not Reportable 01/14/17 04:05 Pappenheimer Bodies Not Reportable 01/14/17 04:05 Sickle Cells Not Reportable 01/14/17 04:05 Target Cells Not Reportable 01/14/17 04:05 Tear Drop Cells Not Reportable 01/14/17 04:05 Ovalocytes Not Reportable 01/14/17 04:05 Helmet Cells Not Reportable 01/14/17 04:05 [place] Bodies Not Reportable 01/14/17 04:05 [place] Rings Not Reportable 01/14/17 04:05 Taya Cells Not Reportable 01/14/17 04:05 Bite Cells Not Reportable 01/14/17 04:05 Crenated Cell Not Reportable 01/14/17 04:05 Elliptocytes Not Reportable 01/14/17 04:05 Acanthocytes (Spur) Not Reportable 01/14/17 04:05 Rouleaux Not Reportable 01/14/17 04:05 Hemoglobin C Crystals Not Reportable 01/14/17 04:05 Schistocytes Not Reportable 01/14/17 04:05 Malaria parasites Not Reportable 01/14/17 04:05 [place] Bodies Not Reportable 01/14/17 04:05 Hem Pathologist Commnt No 01/14/17 04:05 Sodium 133 mmol/L (137-145) L 01/16/17 04:41 Potassium 5.2 mmol/L (3.6-5.0) H 01/16/17 04:41 Chloride 91.0 mmol/L (98-107) L 01/16/17 04:41 Carbon Dioxide 31 mmol/L (22-30) H 01/16/17 04:41 Anion Gap 16 mmol/L 01/16/17 04:41 BUN 21 mg/dL (7-17) H 01/16/17 04:41 Creatinine 0.8 mg/dL (0.7-1.2) 01/16/17 04:41 Estimated GFR > 60 ml/min 01/16/17 04:41 BUN/Creatinine Ratio 26.25 % 01/16/17 04:41 Glucose 334 mg/dL (65-100) H 01/16/17 04:41 POC Glucose 263 (70-105) H 01/17/17 21:58 Hemoglobin A1c 6.2 % (4-6) H 01/14/17 04:05 Calcium 8.6 mg/dL (8.4-10.2) 01/16/17 04:41 Total Creatine Kinase 94 units/L (30-135) 01/14/17 18:28 CK-MB (CK-2) 1.1 ng/mL (0.0-4.0) 01/14/17 18:28 CK-MB (CK-2) Rel Index 1.1 (0-4) 01/14/17 18:28 Troponin T < 0.010 ng/mL (0.00-0.029) 01/14/17 18:28 NT-Pro-B Natriuret Pep 79.14 pg/mL (0-900) 01/13/17 20:26
[2017-01-18] MEDS: BROVANA NEBU IH SCH ×3 (09:42→21:01)
[2017-01-18] MEDS: PULMICORT IH SCH ×3 (09:42→21:01)
[2017-01-18] MEDS: NEURONTIN PO SCH ×4 (10:52→22:42)
[2017-01-18] MEDS: ZITHROMAX PO SCH (10:52)
[2017-01-18] MEDS: LOVENOX SUB-Q SCH (10:52)
[2017-01-18] MEDS: NAMENDA XR PO SCH (10:52)
[2017-01-18] MEDS: HABITROL TD SCH (10:52)
--- NOTE | 2017-01-18 13:17 | Progress Note ---
Assessment and Plan 56 y/o female with new diagnosis of COPD, admitted with COPD exacerbation. 1. Continue solumedrol at 60q6 2. Continue pulmicort and brovana and PRN nebs 3. Encouraged OOB to chair and ambulate as tolerated, per patient ambulated at least 5x on yesterday. 4. Monitor blood sugars Subjective Date of service: 01/18/17 Interval history: No acute events. Per patient feels somewhat better today. Tolerated increase in steroids. Objective Vital Signs - 12hr 01/18/17 01/18/17 01/18/17 01:56 02:11 04:00 Temperature 98.4 F Pulse Rate Pulse Rate [ 101 H 103 H Anterior Bilateral Throughout] Pulse Rate [ 76 Right Radial] Respiratory 18 Rate Respiratory 20 20 Rate [Anterior Bilateral Throughout] Blood Pressure 121/70 [Left Arm] Blood Pressure [Right Arm] O2 Sat by Pulse 98 Oximetry 01/18/17 01/18/17 01/18/17 08:25 08:40 08:41 Temperature 98.2 F Pulse Rate 73 Pulse Rate [ 91 H Anterior Bilateral Throughout] Pulse Rate [ Right Radial] Respiratory 16 18 Rate Respiratory 18 Rate [Anterior Bilateral Throughout] Blood Pressure [Left Arm] Blood Pressure 131/70 [Right Arm] O2 Sat by Pulse 93 93 Oximetry 01/18/17 01/18/17 08:50 10:00 Temperature Pulse Rate Pulse Rate [ 96 H Anterior Bilateral Throughout] Pulse Rate [ Right Radial] Respiratory Rate Respiratory 16 Rate [Anterior Bilateral Throughout] Blood Pressure [Left Arm] Blood Pressure [Right Arm] O2 Sat by Pulse 94 Oximetry Constitutional: no acute distress, alert Eyes: non-icteric ENT: oropharynx moist Neck: supple Effort: normal Ascultation: Bilateral: wheezes Cardiovascular: regular rate and rhythm (no mrg) Gastrointestinal: normoactive bowel sounds, soft, non-tender, non-distended Integumentary: normal Extremities: no cyanosis, no edema, pink and warm Neurologic: normal mental status, non-focal exam, pupils equal and round, CN II- XII normal Psychiatric: mood appropriate, affect normal CBC and BMP: 01/16/17 04:41 01/16/17 04:41 Abnormal lab findings: Abnormal Labs 01/14/17 01/14/17 01/14/17 04:05 04:05 04:05 WBC 22.5 H MCH 27 L Seg Neuts % (Manual) 90.0 H Lymphocytes % (Manual) 6.0 L Seg Neutrophils # Man 20.3 H Sodium 135 L Potassium Chloride 94.0 L Carbon Dioxide BUN 21 H Creatinine Glucose 260 H POC Glucose Hemoglobin A1c 6.2 H 01/14/17 01/14/17 01/14/17 11:03 17:01 23:57 WBC MCH Seg Neuts % (Manual) Lymphocytes % (Manual) Seg Neutrophils # Man Sodium Potassium Chloride Carbon Dioxide BUN Creatinine Glucose POC Glucose 215 H 267 H 307 H Hemoglobin A1c 01/15/17 01/15/17 01/15/17 06:32 06:32 09:33 WBC 26.1 H MCH 26 L Seg Neuts % (Manual) Lymphocytes % (Manual) Seg Neutrophils # Man Sodium 133 L Potassium Chloride 94.5 L Carbon Dioxide BUN Creatinine 0.6 L Glucose 257 H POC Glucose 250 H Hemoglobin A1c 01/15/17 01/15/17 01/15/17 11:29 16:21 21:34 WBC MCH Seg Neuts % (Manual) Lymphocytes % (Manual) Seg Neutrophils # Man Sodium Potassium Chloride Carbon Dioxide BUN Creatinine Glucose POC Glucose 216 H 210 H 317 H Hemoglobin A1c 01/16/17 01/16/17 01/16/17 04:41 04:41 12:23 WBC 25.3 H MCH 26 L Seg Neuts % (Manual) Lymphocytes % (Manual) Seg Neutrophils # Man Sodium 133 L Potassium 5.2 H Chloride 91.0 L Carbon Dioxide 31 H BUN 21 H Creatinine Glucose 334 H POC Glucose 228 H Hemoglobin A1c 01/16/17 01/17/17 16:29 21:58 WBC MCH Seg Neuts % (Manual) Lymphocytes % (Manual) Seg Neutrophils # Man Sodium Potassium Chloride Carbon Dioxide BUN Creatinine Glucose POC Glucose 136 H 263 H Hemoglobin A1c
[2017-01-18] MEDS: PERCOCET 5/325 PO PRN (17:41)
[2017-01-18] MEDS: AMBIEN PO SCH (22:42)
[2017-01-18] MEDS: SINGULAIR PO SCH (22:45)
[2017-01-19] MEDS: DUONEB 0.5 MG-3 MG/3 ML SOLN IH SCH ×3 (02:25→13:52)
[2017-01-19 06:56] LABS: Hematocrit 39.6 % (30.3-42.9); Hemoglobin 12.6 gm/dl (10.1-14.3); Mean Corpuscular HGB Conc 32 % (30-34); Mean Corpuscular Hemoglobin 27 pg (28-32); Mean Corpuscular Volume 84 fl (79-97); Platelet Count 286 K/mm3 (140-440); Red Blood Count 4.72 M/mm3 (3.65-5.03); Red Cell Distribution Width 14.7 % (13.2-15.2); White Blood Count 19.9 K/mm3 (4.5-11.0)
[2017-01-19 07:11] LABS: Anion Gap 19 mmol/L; Blood Urea Nitrogen 21 mg/dL (7-17); Calcium 8.2 mg/dL (8.4-10.2); Carbon Dioxide 26 mmol/L (22-30); Chloride 93.3 mmol/L (98-107); Glucose 350 mg/dL (65-100); Potassium 4.9 mmol/L (3.6-5.0); Sodium 133 mmol/L (137-145)
[2017-01-19] MEDS: PULMICORT IH SCH (07:39)
[2017-01-19] MEDS: BROVANA NEBU IH SCH (07:39)
[2017-01-19 07:44] VITALS: BP 183/98
[2017-01-19] MEDS ORDERED: LEVEMIR SUB-Q SCH (10:00)
[2017-01-19] MEDS: LOVENOX SUB-Q SCH (10:38)
[2017-01-19] MEDS: ZITHROMAX PO SCH (10:38)
[2017-01-19] MEDS: HABITROL TD SCH (10:38)
[2017-01-19] MEDS: NEURONTIN PO SCH (10:38)
[2017-01-19] MEDS: NAMENDA XR PO SCH (10:38)
[2017-01-19] MEDS: NOVOLOG SUB-Q SCH (10:39)
[2017-01-19] MEDS: PERCOCET 5/325 PO PRN (10:40)
--- NOTE | 2017-01-19 10:46 | Progress Note ---
Assessment and Plan Assessment and plan: Patient is a 56-year-old morbidly obese woman BMI 44 with a history of COPD, asthma and bipolar disorder who is visiting from [place], [place] without her nebulizer and ran out of medication who developed shortness of breath with a worsening cough. CTA chest done in the last admission did not demonstrate PE. Patient required BIPAP, now weaned off. She denies any prior intubation for asthma. She was initially admitted here on 01/06/2017 and discharged. 01/12/2017. She came back the next day on 01/13/2017 for worsening sob. -Acute on chronic respiratory failure with hypoxia -Asthma exacerbation: Pulmonology had to increase iv steroids and she still feels tight. -Acute bacterial bronchitis: on Azithromycin, day 3 -Hyperkalemia, repeat bmp -Bipolar disorder: cpm -Leukocytosis- likely secondary to steroids -Morbid obesity: counselor aide on weight loss -Chronic pain and anxiety syndrome -Tobacco abuse: counselor aide on cessation -Hyperglycemia, a1c 6.2, related to steroids; on ssi. Will adjust Disposition: Try to wean off oxygen and wean down iv steroids. now off o2, will d/c home once cleared by pulm History Interval history: Patient seen and examined. Follow up on shortness of breath. She still feels thigh in her lungs. Overnight uneventful. No cp, sob, n/v or severe headaches. Imaging, old records, testing, labs, nursing notes reviewed. Plan discussed with patient. Hospitalist Physical - Physical exam Narrative exam: GEN: WDWN, NAD, AWAKE, ALERT, ORIENTATED 3 on 4 L oxygen nasal cannula HEENT: NCAT, PERRL, EOMI, OP CLEAR NECK: SUPPLE, NO THYROMEGALY, NO JVD, NO LAD CVS: RRR, NORMAL S1S2 LUNGS/CHEST: Coarse rhonchi bilaterally NORMAL CHEST EXPANSION B, adequate AIR ENTRY B ABD: SOFT NTND, GBS, NO REBOUND OR GUARDING EXT/SKIN: NO SIGNIFICANT EDEMA OR RASH MSK: FROM X 4 EXTREMITIES NEURO: CN 2-12 GROSSLY INTACT, NO new FOCAL DEFICITS PSY: CALM - Constitutional Vitals: Temp Pulse Resp BP Pulse Ox 97.8 F 92 H 20 183/98 96 01/19/17 07:44 01/19/17 08:29 01/19/17 08:29 01/19/17 07:44 01/19/17 09:13 Results - Labs CBC & Chem 7: 01/19/17 05:48 01/19/17 05:48 Labs: Laboratory Last Values WBC 19.9 K/mm3 (4.5-11.0) H 01/19/17 05:48 RBC 4.72 M/mm3 (3.65-5.03) 01/19/17 05:48 Hgb 12.6 gm/dl (10.1-14.3) 01/19/17 05:48 Hct 39.6 % (30.3-42.9) 01/19/17 05:48 MCV 84 fl (79-97) 01/19/17 05:48 MCH 27 pg (28-32) L 01/19/17 05:48 MCHC 32 % (30-34) 01/19/17 05:48 RDW 14.7 % (13.2-15.2) 01/19/17 05:48 Plt Count 286 K/mm3 (140-440) 01/19/17 05:48 Add Manual Diff Complete 01/14/17 04:05 Total Counted 100 01/14/17 04:05 Seg Neutrophils % Life Enrichment Assistant 01/14/17 04:05 Seg Neuts % (Manual) 90.0 % (40.0-70.0) H 01/14/17 04:05 Band Neutrophils % 2.0 % 01/14/17 04:05 Lymphocytes % (Manual) 6.0 % (13.4-35.0) L 01/14/17 04:05 Reactive Lymphs % (Man) 0 % 01/14/17 04:05 Monocytes % (Manual) 2.0 % (0.0-7.3) 01/14/17 04:05 Eosinophils % (Manual) 0 % (0.0-4.3) 01/14/17 04:05 Basophils % (Manual) 0 % (0.0-1.8) 01/14/17 04:05 Metamyelocytes % 0 % 01/14/17 04:05 Myelocytes % 0 % 01/14/17 04:05 Promyelocytes % 0 % 01/14/17 04:05 Blast Cells % 0 % 01/14/17 04:05 Nucleated RBC % Not Reportable 01/14/17 04:05 Seg Neutrophils # Man 20.3 K/mm3 (1.8-7.7) H 01/14/17 04:05 Band Neutrophils # 0.5 K/mm3 01/14/17 04:05 Lymphocytes # (Manual) 1.4 K/mm3 (1.2-5.4) 01/14/17 04:05 Abs React Lymphs (Man) 0.0 K/mm3 01/14/17 04:05 Monocytes # (Manual) 0.5 K/mm3 (0.0-0.8) 01/14/17 04:05 Eosinophils # (Manual) 0.0 K/mm3 (0.0-0.4) 01/14/17 04:05 Basophils # (Manual) 0.0 K/mm3 (0.0-0.1) 01/14/17 04:05 Metamyelocytes # 0.0 K/mm3 01/14/17 04:05 Myelocytes # 0.0 K/mm3 01/14/17 04:05 Promyelocytes # 0.0 K/mm3 01/14/17 04:05 Blast Cells # 0.0 K/mm3 01/14/17 04:05 WBC Morphology Not Reportable 01/14/17 04:05 Hypersegmented Neuts Not Reportable 01/14/17 04:05 Hyposegmented Neuts Not Reportable 01/14/17 04:05 Hypogranular Neuts Not Reportable 01/14/17 04:05 Smudge Cells Not Reportable 01/14/17 04:05 Toxic Granulation Not Reportable 01/14/17 04:05 Toxic Vacuolation Not Reportable 01/14/17 04:05 Dohle Bodies Not Reportable 01/14/17 04:05 Pelger-Huet Anomaly Not Reportable 01/14/17 04:05 Pedro Rods Not Reportable 01/14/17 04:05 Platelet Estimate Not Reportable 01/14/17 04:05 Clumped Platelets Not Reportable 01/14/17 04:05 Plt Clumps, EDTA Not Reportable 01/14/17 04:05 Large Platelets Not Reportable 01/14/17 04:05 Giant Platelets Not Reportable 01/14/17 04:05 Platelet Satelliting Not Reportable 01/14/17 04:05 Plt Morphology Comment Not Reportable 01/14/17 04:05 RBC Morphology Not Reportable 01/14/17 04:05 Dimorphic RBCs Not Reportable 01/14/17 04:05 Polychromasia Not Reportable 01/14/17 04:05 Hypochromasia Not Reportable 01/14/17 04:05 Poikilocytosis Not Reportable 01/14/17 04:05 Anisocytosis 1+ 01/14/17 04:05 Microcytosis Not Reportable 01/14/17 04:05 Macrocytosis Not Reportable 01/14/17 04:05 Spherocytes Not Reportable 01/14/17 04:05 Pappenheimer Bodies Not Reportable 01/14/17 04:05 Sickle Cells Not Reportable 01/14/17 04:05 Target Cells Not Reportable 01/14/17 04:05 Tear Drop Cells Not Reportable 01/14/17 04:05 Ovalocytes Not Reportable 01/14/17 04:05 Helmet Cells Not Reportable 01/14/17 04:05 Biswas-Wayside Bodies Not Reportable 01/14/17 04:05 [place] Rings Not Reportable 01/14/17 04:05 Taya Cells Not Reportable 01/14/17 04:05 Bite Cells Not Reportable 01/14/17 04:05 Crenated Cell Not Reportable 01/14/17 04:05 Elliptocytes Not Reportable 01/14/17 04:05 Acanthocytes (Spur) Not Reportable 01/14/17 04:05 Rouleaux Not Reportable 01/14/17 04:05 Hemoglobin C Crystals Not Reportable 01/14/17 04:05 Schistocytes Not Reportable 01/14/17 04:05 Malaria parasites Not Reportable 01/14/17 04:05 Chandler Bodies Not Reportable 01/14/17 04:05 Hem Pathologist Commnt No 01/14/17 04:05 Sodium 133 mmol/L (137-145) L 01/19/17 05:48 Potassium 4.9 mmol/L (3.6-5.0) 01/19/17 05:48 Chloride 93.3 mmol/L (98-107) L 01/19/17 05:48 Carbon Dioxide 26 mmol/L (22-30) 01/19/17 05:48 Anion Gap 19 mmol/L 01/19/17 05:48 BUN 21 mg/dL (7-17) H 01/19/17 05:48 Creatinine 0.6 mg/dL (0.7-1.2) L 01/19/17 05:48 Estimated GFR > 60 ml/min 01/19/17 05:48 BUN/Creatinine Ratio 35.00 % 01/19/17 05:48 Glucose 350 mg/dL (65-100) H 01/19/17 05:48 POC Glucose 160 (70-105) H 01/18/17 21:36 Hemoglobin A1c 6.2 % (4-6) H 01/14/17 04:05 Calcium 8.2 mg/dL (8.4-10.2) L 01/19/17 05:48 Total Creatine Kinase 94 units/L (30-135) 01/14/17 18:28 CK-MB (CK-2) 1.1 ng/mL (0.0-4.0) 01/14/17 18:28 CK-MB (CK-2) Rel Index 1.1 (0-4) 01/14/17 18:28 Troponin T < 0.010 ng/mL (0.00-0.029) 01/14/17 18:28 NT-Pro-B Natriuret Pep 79.14 pg/mL (0-900) 01/13/17 20:26
--- NOTE | 2017-01-19 11:01 | Discharge Summary ---
Providers - Providers Date of Admission: 01/13/17 22:16 Attending physician: FRANCIA SUTHERLAND 01/14/17 07:42 Consult to Physician [CONS] Routine Consulting Provider: ANASTASIA PARRA Reason For Exam: asthma exacerbation Place consult to:: ANSWERING SERVICE Notified:: YES Phone number called:: [phone] If yes, spoke with:: FRANDY Time called:: 08:58 Primary care physician: QUOTATION CLERK Hospitalization Condition: Stable Hospital course: Patient is a 56-year-old morbidly obese woman BMI 44 with a history of COPD, asthma and bipolar disorder who is visiting from [place], [place] without her nebulizer and ran out of medication who developed shortness of breath with a worsening cough. CTA chest done in the last admission did not demonstrate PE. Patient required BIPAP, now weaned off. She denies any prior intubation for asthma. She was initially admitted here on 01/06/2017 and discharged. 01/12/2017. She came back the next day on 01/13/2017 for worsening sob. -Acute on chronic respiratory failure with hypoxia -Asthma exacerbation: Pulmonology had to increase iv steroids and she still feels tight. -Acute bacterial bronchitis: on Azithromycin, day 3 -Hyperkalemia, repeat bmp -Bipolar disorder: cpm -Leukocytosis- likely secondary to steroids -Morbid obesity: college counselor on weight loss -Chronic pain and anxiety syndrome -Tobacco abuse: college counselor on cessation -Hyperglycemia, a1c 6.2, related to steroids; on ssi. Will adjust Disposition: Try to wean off oxygen and wean down iv steroids. now off o2, will d/c home once cleared by pulm started metformin for new onset steriods related dm. Disposition: DISCHARGED TO HOME OR SELFCARE Time spent for discharge: 32 minutes Core Measure Documentation - Palliative Care Palliative Care/ Comfort Measures: Not Applicable - Core Measures Any of the following diagnoses?: none - VTE Discharge Requirements Deep Vein Thrombosis/Pulmonary Embolism Present on Admission: No Has pt received <5 days of overlap therapy or INR<2.0: No Anticoagulant overlap therapy prescribed at discharge: No Contraindication No Overlap Therapy order at DC: Not Indicated Exam - Physical Exam Narrative exam: GEN: WDWN, NAD, AWAKE, ALERT, ORIENTATED 3 on 4 L oxygen nasal cannula HEENT: NCAT, PERRL, EOMI, OP CLEAR NECK: SUPPLE, NO THYROMEGALY, NO JVD, NO LAD CVS: RRR, NORMAL S1S2 LUNGS/CHEST: Coarse rhonchi bilaterally NORMAL CHEST EXPANSION B, adequate AIR ENTRY B ABD: SOFT NTND, GBS, NO REBOUND OR GUARDING EXT/SKIN: NO SIGNIFICANT EDEMA OR RASH MSK: FROM X 4 EXTREMITIES NEURO: CN 2-12 GROSSLY INTACT, NO new FOCAL DEFICITS PSY: CALM - Constitutional Vitals: Temp Pulse Resp BP Pulse Ox 97.8 F 92 H 20 183/98 96 01/19/17 07:44 01/19/17 08:29 01/19/17 08:29 01/19/17 07:44 01/19/17 09:13 Plan Activity: other (no strenous activites until cleared by PCP. ) Diet: low salt, diabetic Special Instructions: record blood sugar diary Follow up with: PRIMARY CARE,MD [Primary Care Provider] - 3-5 Days Prescriptions: Montelukast [Singulair] 10 mg PO QHS #30 tablet OLANzapine [ZyPREXA] 5 mg PO QHS #30 tablet Zolpidem [Ambien] 10 mg PO QHS PRN #30 tablet PRN Reason: Insomnia Acetaminophen [Acetaminophen TAB] 325 mg PO Q4H PRN #30 tablet PRN Reason: Pain MILD(1-3)/Fever >100.5/HIGH ALBUTEROL NEB's [Proventil 0.083% NEBS] 90 mcg IH QID PRN #30 nebu PRN Reason: Shortness Of Breath ALPRAZolam [Xanax TAB] 1 mg PO BID PRN #30 tablet PRN Reason: Agitation Arformoterol Nebu [Brovana Nebu] 15 mcg IH Q12HRT #30 ml Budesonide [Pulmicort Respules] 0.5 mg IH Q12HRT #30 nebu Fluticasone/Salmeterol [Advair Diskus 250-50 mcg] 1 puff IH BID #1 blst.w.dev Ipratropium/Albuterol Sulfate [Duoneb 0.5 mg-3 mg/3 ml Soln] 1 ampul IH Q6HRT # 30 ampul.neb metFORMIN [Glucophage] 500 mg PO BID #60 tablet Nicotine [Habitrol] 14 mg TD QDAY #30 patch oxyCODONE /ACETAMINOPHEN [Percocet 5/325 mg] 1 tab PO Q6H PRN #30 tablet PRN Reason: Pain , Severe (7-10) predniSONE [Deltasone] 1 dose PO DAILY #1 mo
--- NOTE | 2017-01-19 13:41 | Progress Note ---
Assessment and Plan 56 y/o female with new diagnosis of COPD, admitted with COPD exacerbation. 1. Steroid taper at discharge 2. Antihistamine therapy 3. Per patient going back to [place] on Tuesday 4. Agree with discharge. Subjective Date of service: 01/19/17 Interval history: Much better today. Going home Objective Vital Signs - 12hr 01/19/17 01/19/17 01/19/17 02:26 02:41 04:50 Temperature 97.8 F Pulse Rate Pulse Rate [ 87 89 Anterior Bilateral Throughout] Pulse Rate [ 81 Right Radial] Respiratory 20 Rate Respiratory 18 18 Rate [Anterior Bilateral Throughout] Blood Pressure 101/55 [Right Arm] O2 Sat by Pulse 97 Oximetry 01/19/17 01/19/17 01/19/17 07:39 07:44 07:54 Temperature 97.8 F Pulse Rate Pulse Rate [ 84 86 Anterior Bilateral Throughout] Pulse Rate [ 84 Right Radial] Respiratory 20 Rate Respiratory 16 16 Rate [Anterior Bilateral Throughout] Blood Pressure 183/98 [Right Arm] O2 Sat by Pulse 91 Oximetry 01/19/17 01/19/17 08:29 09:13 Temperature Pulse Rate 92 H Pulse Rate [ Anterior Bilateral Throughout] Pulse Rate [ Right Radial] Respiratory 20 Rate Respiratory Rate [Anterior Bilateral Throughout] Blood Pressure [Right Arm] O2 Sat by Pulse 96 96 Oximetry Constitutional: no acute distress, alert Eyes: non-icteric ENT: oropharynx moist Neck: supple Effort: normal Ascultation: Bilateral: wheezes Cardiovascular: regular rate and rhythm (no mrg) Gastrointestinal: normoactive bowel sounds, soft, non-tender, non-distended Integumentary: normal Extremities: no cyanosis, no edema, pink and warm Neurologic: normal mental status, non-focal exam, pupils equal and round, CN II- XII normal Psychiatric: mood appropriate, affect normal CBC and BMP: 01/19/17 05:48 01/19/17 05:48 Abnormal lab findings: Abnormal Labs 01/14/17 01/14/17 01/14/17 04:05 04:05 04:05 WBC 22.5 H MCH 27 L Seg Neuts % (Manual) 90.0 H Lymphocytes % (Manual) 6.0 L Seg Neutrophils # Man 20.3 H Sodium 135 L Potassium Chloride 94.0 L Carbon Dioxide BUN 21 H Creatinine Glucose 260 H POC Glucose Hemoglobin A1c 6.2 H Calcium 01/14/17 01/14/17 01/14/17 11:03 17:01 23:57 WBC MCH Seg Neuts % (Manual) Lymphocytes % (Manual) Seg Neutrophils # Man Sodium Potassium Chloride Carbon Dioxide BUN Creatinine Glucose POC Glucose 215 H 267 H 307 H Hemoglobin A1c Calcium 01/15/17 01/15/17 01/15/17 06:32 06:32 09:33 WBC 26.1 H MCH 26 L Seg Neuts % (Manual) Lymphocytes % (Manual) Seg Neutrophils # Man Sodium 133 L Potassium Chloride 94.5 L Carbon Dioxide BUN Creatinine 0.6 L Glucose 257 H POC Glucose 250 H Hemoglobin A1c Calcium 01/15/17 01/15/17 01/15/17 11:29 16:21 21:34 WBC MCH Seg Neuts % (Manual) Lymphocytes % (Manual) Seg Neutrophils # Man Sodium Potassium Chloride Carbon Dioxide BUN Creatinine Glucose POC Glucose 216 H 210 H 317 H Hemoglobin A1c Calcium 01/16/17 01/16/17 01/16/17 04:41 04:41 12:23 WBC 25.3 H MCH 26 L Seg Neuts % (Manual) Lymphocytes % (Manual) Seg Neutrophils # Man Sodium 133 L Potassium 5.2 H Chloride 91.0 L Carbon Dioxide 31 H BUN 21 H Creatinine Glucose 334 H POC Glucose 228 H Hemoglobin A1c Calcium 01/16/17 01/17/17 01/18/17 16:29 21:58 08:43 WBC MCH Seg Neuts % (Manual) Lymphocytes % (Manual) Seg Neutrophils # Man Sodium Potassium Chloride Carbon Dioxide BUN Creatinine Glucose POC Glucose 136 H 263 H 369 H Hemoglobin A1c Calcium 01/18/17 01/19/17 01/19/17 21:36 05:48 05:48 WBC 19.9 H MCH 27 L Seg Neuts % (Manual) Lymphocytes % (Manual) Seg Neutrophils # Man Sodium 133 L Potassium Chloride 93.3 L Carbon Dioxide BUN 21 H Creatinine 0.6 L Glucose 350 H POC Glucose 160 H Hemoglobin A1c Calcium 8.2 L 01/19/17 01/19/17 07:39 11:01 WBC MCH Seg Neuts % (Manual) Lymphocytes % (Manual) Seg Neutrophils # Man Sodium Potassium Chloride Carbon Dioxide BUN Creatinine Glucose POC Glucose 325 H 310 H Hemoglobin A1c Calcium
[2017-01-19] MEDS ORDERED: GLUCOPHAGE PO SCH (17:00)
== END 2017-01-19 12:15 | disposition home or self-care (01) | DRG 189 ==
LOC: ED 18:57 → 4A 22:16 → CC1 01-14 06:48 → 4A 01-14 19:08
PROVIDERS: ADMIT Internal Medicine; ATTEND Internal Medicine
PROC: 5A09357 Assistance with Respiratory Ventilation, Less than 24 Consecutive Hours, Continuous Positive Airway Pressure (ICD-10-PCS; principal; 2017-01-13)
DX: J96.21 Acute and chronic respiratory failure with hypoxia (principal); J45.901 Unspecified asthma with (acute) exacerbation; Z68.41 Body mass index [BMI] 40.0-44.9, adult; J44.1 Chronic obstructive pulmonary disease with (acute) exacerbation; F31.9 Bipolar disorder, unspecified; D72.829 Elevated white blood cell count, unspecified; F17.210 Nicotine dependence, cigarettes, uncomplicated; J20.9 Acute bronchitis, unspecified; E66.01 Morbid (severe) obesity due to excess calories; G89.4 Chronic pain syndrome; F41.9 Anxiety disorder, unspecified; M19.90 Unspecified osteoarthritis, unspecified site; E87.5 Hyperkalemia; E88.81 Metabolic syndrome and other insulin resistance; K21.9 Gastro-esophageal reflux disease without esophagitis; R73.9 Hyperglycemia, unspecified; Z91.14 Patient's other noncompliance with medication regimen; Z90.49 Acquired absence of other specified parts of digestive tract; Z82.49 Family history of ischemic heart disease and other diseases of the circulatory system; Z82.5 Family history of asthma and other chronic lower respiratory diseases
CPT/HCPCS: 36415; 71010; 80048; 82550; 82553; 82962; 83036; 83880; 84484; 85007; 85025; 85027; 87040; 94640; 94644; 94760; 96365; 96366; 96375; 99406; J0456; J1650; J1815; J1818; J2920; J2930; J3475; J7050